=== PATIENT | female | born 1995 | race Caucasian/White ===

== ENCOUNTER 2017-06-22 10:40 | Outpatient (CLI) | payer MEDICAID, SELFPAY ==
[2017-06-22 11:00] VITALS: BMI 32.1
[2017-06-22] MEDS: Lactated Ringers 1,000 ML 1000 ML IV (11:37)
--- NOTE | 2017-06-22 16:09 | OB.TRI.NOTE ---
History of Present Illness Reason For Visit: ABD PAIN Date of Service: 06/22/17 Gestational age: 35.5 History of Present Illness: 22yo @ 35.5 wks, Viral gastroenteritis , not in labor 1) IVF- patient reports improvement after 2) Dc home Home Medications Medication Instructions Recorded Ferrous Sulfate 325 mg PO DAILY@0800 11/09/16 One Daily Tablet 1 tab PO DAILY 01/10/17 Allergies No Known Allergies Allergy (Verified 01/10/17 21:51) NST - FHR Rate Baby A Baseline: 135 Variability:: Moderate Accelerations:: 15 x 15 Decelerations:: None NST Reactive:: Yes FHR Category:: Category I Uterine Activity:: irregular
== END 2017-06-22 13:15 | disposition home or self-care (01) ==
LOC: WPOUT 10:48 → WP 10:49
PROVIDERS: Visit Provider Obstetrics & Gynecology
DX: O26.893 Other specified pregnancy related conditions, third trimester (principal); A08.4 Viral intestinal infection, unspecified; Z3A.35 35 weeks gestation of pregnancy
CPT/HCPCS: 96361; 96374; 59025; 59050; 99218; J7120; G0378

== ENCOUNTER 2017-06-23 03:38 | Outpatient (CLI) | payer MEDICAID, SELFPAY ==
[2017-06-23 04:09] VITALS: BMI 32.4
[2017-06-23 05:14] LABS: Hematocrit 36.8 % (37-47); Hemoglobin 11.6 g/dl (12.0-15.0); Mean Corp Hgb Conc 31.5 g/gl (32-36); Mean Corpuscular Hgb 24.7 pg (27.0-32.0); Mean Corpuscular Volume 78.5 fL (81-99); Mean Platelet Vol. 9.2 fl (6.2-12.0); Platelet Count 265 K/mm3 (150-450); RBC Distribution Width CV 16.2 % (11.6-14.6); RBC Distribution Width SD 44.9 fl (35.1-43.9); Red Blood Count 4.69 M/mm3 (4.2-5.4); White Blood Count 12.5 K/mm3 (4.4-11.0)
[2017-06-23 05:16] LABS: Scan Indicated on CBC? Y/N NO
[2017-06-23 05:23] LABS: Partial Thromboplast Time 29.9 Seconds (24.1-36.2); Prothrombin Time (Protime)PT. 12.9 SECONDS (11.7-14.9)
[2017-06-23 05:29] LABS: AST(SGOT) 25 U/L (15-37); Alanine Aminotransfer ALT/SGPT 18 U/L (13-56); EST Glomerular Filtration Rate 214 mL/min (>60); Est Glom Filt Rate - Afr Amer 259 mL/min (>60); Estimated Creatinine Clearance 193.73 ml/min
[2017-06-23 06:07] LABS: Amylase 46 U/L (25-115); Anion Gap 10 (5-15); BUN 6 mg/dL (7-18); BUN/Creat Ratio 15.7 RATIO (10-20); Calcium,Total 7.9 mg/dL (8.5-10.1); Chloride 110 mmol/L (98-107); Creatinine, Serum 0.38 mg/dL (0.55-1.02); EST Glomerular Filtration Rate 228 mL/min (>60); Est Glom Filt Rate - Afr Amer 275 mL/min (>60); Estimated Creatinine Clearance 203.93 ml/min; Glucose 89 mg/dL (70-110); Lipase 90 U/L (73-393); Potassium 4.4 mmol/L (3.5-5.1); Sodium Level 139 mmol/L (136-145)
[2017-06-23 06:14] LABS: Protein, Urine (Random) 45.7 mg/dL (<11.9); Protein:Creat Ratio 232 mg/g CRE (0-200)
--- NOTE | 2017-06-23 07:29 | OB.TRI.NOTE ---
History of Present Illness Reason For Visit: R/O LABOR, vomiting Date of Service: 06/23/17 Gestational age: 35.6 Home Medications Medication Instructions Recorded Ferrous Sulfate 325 mg PO DAILY@0800 11/09/16 One Daily Tablet 1 tab PO DAILY 01/10/17 Allergies No Known Allergies Allergy (Verified 01/10/17 21:51) NST - FHR Rate Baby A Baseline: 150 Variability:: Moderate Accelerations:: 15 x 15 Decelerations:: None NST Reactive:: Yes FHR Category:: Category I Uterine Activity:: no ctx Impression/Plan [id number] @ 35.6 wks, vomiting, not in labor 1) Gastroenteritis likely- no signs of labor 2) Labs collected reviewed- nothing of concern at this time 3) dc home
== END 2017-06-23 06:45 | disposition home or self-care (01) ==
LOC: WPOUT 03:53 → WP 03:54
PROVIDERS: Visit Provider Obstetrics & Gynecology
DX: O21.9 Vomiting of pregnancy, unspecified (principal); Z3A.35 35 weeks gestation of pregnancy
CPT/HCPCS: 59025; 59050; 80048; 82150; 82565; 82570; 83690; 84156; 84450; 84460; 84550; 85027; 85610; 85730; 99218; A4216; G0378

== ENCOUNTER 2017-07-02 12:37 | Inpatient (IN) | payer MEDICAID, SELFPAY ==
[2017-07-02 08:35] LABS: Hematocrit 34.8 % (37-47); Hemoglobin 10.7 g/dl (12.0-15.0); Mean Corp Hgb Conc 30.7 g/gl (32-36); Mean Corpuscular Volume 78.2 fL (81-99); Platelet Count 204 K/mm3 (150-450); RBC Distribution Width SD 45.7 fl (35.1-43.9); Red Blood Count 4.45 M/mm3 (4.2-5.4); White Blood Count 11.1 K/mm3 (4.4-11.0)
[2017-07-02 08:36] LABS: Scan Indicated on CBC? Y/N NO
[2017-07-02 08:46] VITALS: BMI 33.3
[2017-07-02 08:49] LABS: Partial Thromboplast Time 28.3 Seconds (24.1-36.2)
[2017-07-02 08:52] LABS: AST(SGOT) 10 U/L (15-37); Alanine Aminotransfer ALT/SGPT 15 U/L (13-56); Creatinine, Serum 0.42 mg/dL (0.55-1.02); EST Glomerular Filtration Rate 206 mL/min (>60); Est Glom Filt Rate - Afr Amer 249 mL/min (>60); Uric Acid 3.4 mg/dL (2.6-6.0)
[2017-07-02 09:05] LABS: Protein, Urine (Random) 18.8 mg/dL (<11.9); Protein:Creat Ratio 208 mg/g CRE (0-200)
[2017-07-02] MEDS: Acetaminophen/Butalbital/Caffe 1 Tablet PO (09:52)
--- NOTE | 2017-07-02 12:37 | PCM.HP.OB ---
History Date of Admission: 07/02/17 Gestational age: 37.1 History of this : see [facility] episode prenatals reviewed Pertinent Past Medical History: D&C Anxiety Allergies No Known Allergies Allergy (Verified 01/10/17 21:51) Smoking Status: Never smoker Alcohol: None Drug Use: none Number of Fetus(es): 1 Physical Exam General: Alert, Oriented x3 Abdomen: Soft, Non Tender, Non-Distended Presentation: Cephalic Cervix Dilation (cm): 3 Station: -3 Effacement (%): 75 Assessment/Plan 22yo female @37&1 with headache & elevated BP Admit to L&D Elevated BP - patient with elevated BP & persistent headache, will proceed with induction of labor for gestational hypertension & possible preeclampsia - no magnesium at this time Routine care Obtain GBS results EFW less than 4500g
[2017-07-02] MEDS: Oxytocin 30 units/NS 500 ml 30 UNITS/500 ML IV.SOLN IV (17:59)
[2017-07-02] MEDS: Lactated Ringers 1,000 ML 50 ML IV (18:00)
[2017-07-02 18:12] LABS: Group B Strep DNA By PCR Negative (Negative); Internal Control PASS; Probe Check PASS; Specimen Processing Control PASS
--- NOTE | 2017-07-02 18:34 | PCM.PN.BLA ---
Progress Note S: Patient comfortable with ctxs O: cvx 3/80/-2 AROM clear amniotic fluid fhts 140 with mod variability, accels tocos Q2 min A&P: pit induction for gestational hypertension GB negative
[2017-07-02] MEDS: Oxytocin 30 units/NS 500 ml 30 UNITS/500 ML IV.SOLN 334 UNITS IV (21:57)
--- NOTE | 2017-07-02 22:22 | PCM.OB.VAG ---
Vaginal Delivery Maternal Presentation: Medically Indicated Induction Method of Induction: Pitocin, Amniotomy Medical Reason for Induction: Gestational Hypertension Amniotic Membrane Rupture Type: Artificial Amniotic Fluid Description: Clear Final YENNIFER: 07/22/17 Gestational age: 37 Weeks and 1 Days Date of Procedure: 07/02/17 Pre-Operative Diagnosis: Gestational hypertension Post-Operative Diagnosis: Gestational hypertension Surgery/ Procedure Performed: Spontaneous Vaginal Delivery Type of Anesthesia: Local with 1% lidocaine Description of Procedure: Patient anterior lip & feeling pressure. She was prepped & pushed past cervix. head delivered. Shoulders delivered easily with next maternal push. Body delivered & infant placed on maternal abdomen. 3vc clamped & cut in delayed fashion. Placenta delivered with gentle traction & good uterine tone obtained. Presentation: MYLA Placental Delivery Description: Expressed Placenta Disposition: [facility] Cord Vessel Description: 3 Vessels Estimated Blood Loss: 300ml Infant A gender: Female (1 minute): 8 (5 minute): 9 Episiotomy Description: None Laceration: 1st degree - vaginal - repaired with 3-0 vicryl Medications given after delivery: IV Pitocin Complications: None
[2017-07-02] MEDS: Oxytocin 30 units/NS 500 ml 30 UNITS/500 ML IV.SOLN 167 UNITS IV (22:27)
[2017-07-03 00:42] VITALS: BP 123/78; PULSE 103; RESP 18; TEMP 36.4; O2SAT 98
[2017-07-03] MEDS: Acetaminophen 500 MG Tablet 1000 MG PO (02:44)
[2017-07-03 02:45] VITALS: BP 123/78; PULSE 103; RESP 18; TEMP 36.4; O2SAT 98
--- NOTE | 2017-07-03 07:18 | PCM.PN.OB ---
Subjective: No complaints - Physical Exam General: Alert, Oriented x3 Abdomen: Soft, Non Tender, Non-Distended - ff mid & below umb Extremities: No Calf Tenderness Vital Signs Temp Pulse Resp BP Pulse Ox 97.5 F L 103 H 18 123/78 H 98 07/03/17 02:45 07/03/17 02:45 07/03/17 02:45 07/03/17 02:45 07/03/17 02:45 Oxygen Delivery Method Room Air Weight: 194 lb 0.108 oz Body Mass Index (BMI) 33.3 Intake and Output for Last 24 Hours 07/01/17 07/02/17 07/03/17 23:59 23:59 23:59 Intake Total 750 / 750 Output Total 700 / 700 Balance 50 / 50 Laboratory Tests Past 24 Hrs 07/02/17 07/02/17 07/02/17 08:20 08:20 08:20 WBC 11.1 H RBC 4.45 Hgb 10.7 L Hct 34.8 L MCV 78.2 L MCH 24.0 L MCHC 30.7 L RDW 16.0 H RDW Differential 45.7 H Plt Count 204 MPV 9.0 PT 13.0 INR 1.0 APTT 28.3 Creatinine 0.42 L Estim Creat Clear Calc 184.50 Est GFR (MDRD) Af Amer 249 Est GFR (MDRD) Non-Af 206 Uric Acid 3.4 AST 10 L ALT 15 U Random Total Protein Urine Creatinine Protein/Creatinin Ratio Group B Strep DNA Specimen Comment Blood Type Antibody Screen 07/02/17 07/02/17 07/02/17 08:40 12:10 17:10 WBC RBC Hgb Hct MCV MCH MCHC RDW RDW Differential Plt Count MPV PT INR APTT Creatinine Estim Creat Clear Calc Est GFR (MDRD) Af Amer Est GFR (MDRD) Non-Af Uric Acid AST ALT U Random Total Protein 18.8 H Urine Creatinine 90.50 Protein/Creatinin Ratio 208 H Group B Strep DNA Negative Specimen Comment Not Reportable Blood Type AB POSITIVE Antibody Screen NEGATIVE Assessment/Plan PPD#1 Routine care
[2017-07-03 07:56] VITALS: BP 123/78; PULSE 73; RESP 20; TEMP 36.8
[2017-07-03 11:39] VITALS: BP 132/72; PULSE 81; RESP 16; TEMP 36.6; O2SAT 97
[2017-07-03 15:32] VITALS: BP 129/76; PULSE 93; RESP 16; TEMP 36.1; O2SAT 99
[2017-07-03 19:40] VITALS: BP 128/72; PULSE 93; RESP 16; TEMP 36.3; O2SAT 96
[2017-07-04 01:00] VITALS: BP 109/69; PULSE 77; RESP 18; TEMP 36.2
--- NOTE | 2017-07-04 04:57 | DCINST_ITS ---
Discharge Diet: No Restrictions Discharge Activity: Return to Normal Activity, May not drive while taking narcotic pain medications., May Shower May resume sexual activity in: 4-6 weeks Additional Activity Instructions:: Nothing in the vagina for 4-6 weeks. You may return to work/school in 6 weeks. Call your doctor if your incision/area has: Continuous Slow Oozing, Sudden Increased Bleeding, Increased Pain/ Swelling, Increased Redness, Foul Smelling Discharge Call your doctor if you observe: Fever of 101 or Higher, Inability to urinate, Inability to have a bowel movement, Using more than one pad per hour, Uncontrolled pain Additional Instructions: If you experience any of the following, contact your healthcare provider. * Bleeding that soaks a pad every hour for 2 hours * Fever 100.4 or higher * Unrelieved incision or abdominal pain * Swelling, redness, discharge or bleeding from your incision or episiotomy site * Your incision begins to separate * Problems urinating (including inability to urinate or burning while urinating) . * Visual changes * Severe headache * Flu-like symptoms * Pain or redness in one of both of your breasts * Pain, warmth, tenderness or swelling in your legs, especially the calf area * Frequent nausea and vomiting * Symptoms of depression or anxiety If you experience any of the following, call 911 or go to the nearest Emergency Room. * Chest pain * Problems breathing * Seizure activity * Partial or complete paralysis of a body part, slurred speech, weakness or drooping of the face, or a sudden inability to walk or hold your balance Allergies/Adverse Reactions: Allergies No Known Allergies Allergy (Verified 01/10/17 21:51) Medications to take at Discharge One Daily Tablet 1 tab PO DAILY 01/10/17 When: Call to make an appointment with your doctor in 6 weeks. If you had elevated Blood Pressure or 4th degree laceration you will need to be seen in 2 weeks. Primary Care Physician: Care Physician,No Primary [Primary Care Provider] - Proposed Discharge Date: 07/04/17
--- NOTE | 2017-07-04 07:49 | PCM.PN.BLA ---
Progress Note S: Patient sitting up in bed now, baby is fussy and showing feeding cues. Patient in process of latching baby to breast. Patient denies any complaints or concerns. Denies RICHARDSON, scotoma or dizziness. Patient reports + colostrum with hand expression. Patient reports bleeding is slowing down, denies passage of large blood clots. denies urinary issues or issues with ambulation. O: BP = 109/69, T = 97.2, HR = 77, R = 18 Nipples intact, no blisters or erythema noted Abdomen NT x 4 quadrants, FF midline 2FB below umbilicus Perineum well approximated, scant rubra lochia Negative calf tenderness to palpation, no edema in LE A: PPD #2, s/p following IOL @ 37+ weeks for GHTN, Normal PP course P: 1) Discharge patient to home pending discharge 2) RTC in 6 weeks to [facility] for Visit with Provider Jaimie Hung CNM
[2017-07-04 08:45] VITALS: BP 118/73; PULSE 80; RESP 16; TEMP 36.3
[2017-07-04] MEDS: Senna/Docusate Sodium 1 Tablet PO (10:41)
== END 2017-07-04 11:25 | disposition home or self-care (01) | DRG 372 ==
LOC: WPOUT 16:17
PROVIDERS: Admitting Provider Obstetrics & Gynecology; Visit Provider Obstetrics & Gynecology
DX: O13.4 Gestational [pregnancy-induced] hypertension without significant proteinuria, complicating childbirth (principal); O70.0 First degree perineal laceration during delivery; Z37.0 Single live birth; Z3A.37 37 weeks gestation of pregnancy
CPT/HCPCS: 59050; 82565; 82570; 84156; 84450; 84460; 84550; 85027; 85610; 85730; 86850; 86900; 87653; 99218; J7120; A4216; G0378

== ENCOUNTER 2018-03-03 09:43 | Emergency (ER) | payer MEDICAID, SELFPAY ==
[2018-03-03 09:45] VITALS: BP 141/77; PULSE 94; RESP 18; TEMP 36.6; O2SAT 98; BMI 30.2
--- NOTE | 2018-03-03 10:55 | ED.DCSUM_ITS ---
- ER Visit Summary Date of Service: 03/03/18 Chief Complaint: Lump on the back of my scalp History of Present Illness: The patient is a 22 F when she was washing her hair yesterday she noticed a lump on the back of her scalp. Mildly tender. She said she normally does not wash her own hair. States that it is tender to the touch. No drainage. No bleeding. No trauma. Otherwise she has not been ill. Physical Examination: Very well appearing young female. Vital signs are stable afebrile. She does not look septic toxic in any distress. Vital signs are stable afebrile. H EENT exam pupils round reactive light. Normal speech. No facial droop. Extraocular motions intact. Her scalp was unremarkable except for the left lower posterior scalp there is an area about the size of a dime that is tender. This is either a subcutaneous cyst, abscess, lipoma or lymph node more than likely. There is no fluctuance. There is no redness. There is no discharge. Neck nontender no lymphadenopathy. Lungs clear to auscultation. Heart regular rhythm no murmur. Abdomen soft nontender. Moving all 4 extremities. Neurologically she is awake and alert with no focal motor deficits. Neurologic exam is normal. Test Results: None Emergency Department Course and Treatment: I discussed with the patient the options. She will be started on Keflex for 1 week. If this is an abscess or an infected lymph node it may resolve the problem. There is really nothing to drain at this time and is firm there is no fluctuance or obvious fluid. If this is not improving she will follow-up with her primary care physician I have it potentially resected. Treatment Plan: Keflex 4 times daily. Follow-up if not improving. Disposition: Discharge Impression: Acute left posterior scalp cyst or abscess This note was generated with [employer] dictation software. It may contain incorrect words, spelling, and punctuation that were not noted in review of the chart prior to signing ED Disposition - Plan for ED Patient: Chief Complaint: Abscess Referrals: Care Physician,No Primary [Primary Care Provider] -
--- NOTE | 2018-03-03 10:56 | ED.DEP ---
ED Disposition - Plan for ED Patient: Disposition: Home or Assisted Living Chief Complaint: Abscess Instructions: ED Staph Infec Abx Tx Only Prescriptions: Cephalexin [Keflex] 500 mg PO Q6 #30 cap Referrals: Mu Bowden MD [STAFF PHYSICIAN] - Additional Instructions: The lump on the back of her scalp may be a cyst, abscess, lipoma or infected lymph node. We will start you on antibiotics and see if it resolves. At this time there is nothing to drain. If this does not improve you will need referral to a general surgeon to have it either drained or opened up and resected.
[2018-03-03 11:13] VITALS: PULSE 97; RESP 14; O2SAT 98
== END 2018-03-03 11:14 | disposition home or self-care (01) ==
PROVIDERS: Emergency Provider Emergency Medicine
DX: L02.811 Cutaneous abscess of head [any part, except face] (principal)
CPT/HCPCS: 99282

== ENCOUNTER 2018-03-10 21:21 | Emergency (ER) | payer MEDICAID, SELFPAY ==
[2018-03-10 21:21] VITALS: BP 146/85; PULSE 94; RESP 18; TEMP 36.9; O2SAT 98; BMI 27.9
[2018-03-10 21:49] LABS: Bacteria 0 SEEN /hpf (None Seen); Mucous, Urine 0 SEEN /hpf (<or=2+)
[2018-03-10 21:50] LABS: Color, Urine Yellow (Yellow); Glucose, Dipstick Normal (Normal); Ketone-Dipstick Negative (Negative); Leukocyte Esterase-Dipstick 25 /ul (Negative); Nitrite-Dipstick Negative (Negative); Occult Blood-Urine 10 /ul (Negative); Protein-Dipstick 15 mg/dl (Negative); Urine Bilirubin Dipstick Negative (Negative); Urine Clarity Clear (Clear); Urine Urobilinogen Normal (Normal)
[2018-03-10 21:58] LABS: Internal QC Validated? YES +Cl - CLEAR BKGD; Pregnancy, Urine Negative Negative; Red Blood Cells-Urine 0-5 SEEN /hpf (0-5); Squamous Epithelial Cells - UA 0-5 SEEN /hpf (5-10); White Blood Cells 0-5 SEEN /hpf (0-5)
[2018-03-10] MEDS: Ondansetron ODT 4 MG Tablet PO (22:00)
[2018-03-10 22:05] VITALS: BP 118/77; PULSE 93; RESP 16; O2SAT 96
--- NOTE | 2018-03-10 22:09 | ED.DCSUM_ITS ---
- ER Visit Summary Date of Service: 03/10/18 Chief Complaint: Abdominal pain History of Present Illness: The patient is a 22 F with no primary care physician. [facility] She reports a 5:00 this evening she had the onset of suprapubic pain that radiates up toward her umbilicus. Gradual ly gotten worse. It is a burning, sharp pain that is 10 out of 10 at worst and 5-10 currently. Is worsened by movement and walking. Is relieved by nothing. However, she is not taking anything for pain. She has had nausea without vomiting. No diarrhea. Last bowel was today. She has had no melena or hematochezia. No dysuria or frequency. She is on control reports her last Depo shot was October 06. She has not had a period for approximately 1 year. Physical Examination: Vitals: Stable. Afebrile. General: Well-nourished and well-developed. Head: Normocephalic atraumatic. Neck: Supple, no lymphadenopathy. No JVD. Nontender. Cardiovascular: Regular rate and rhythm. No murmurs. Respiratory: No respiratory distress. Clear to auscultation bilaterally. Abdominal: Soft, mild suprapubic tenderness palpation, nondistended, normal bowel sounds. No guarding, rebound, or peritoneal signs. Back: Nontender. Extremities: Nontender, no edema. Skin: Normal color, no rash. Neurologic: Alert and oriented ?3. Cranial nerves II through XII are intact. Normal strength and sensation. Psych: Normal affect. Test Results: UA and test were negative. Emergency Department Course and Treatment: Patient was treated with Zofran. She refused pain medications. Treatment Plan: Patient be discharged instructions follow-up the [facility] in 1-2 days if not improving. Return to the emergency department for any worsening symptoms. Disposition: To home in improved and stable condition. Impression: 1. Abdominal pain, uncertain cause. This note was generated with [employer] dictation software. It may contain incorrect words, spelling, and punctuation that were not noted in review of the chart prior to signing ED Disposition - Plan for ED Patient: Disposition: Home or Assisted Living Chief Complaint: Abd Pain Instructions: ED Abdominal Pain Unkn Cause Prescriptions: Ondansetron [Zofran Odt] 4 mg PO Q8H PRN PRN #10 tablet PRN Reason: Nausea Referrals: Iris Sykes [NON-STAFF] - 1-2 Days if not improving
== END 2018-03-10 22:44 | disposition home or self-care (01) ==
LOC: ED 21:59
PROVIDERS: Emergency Provider Emergency Medicine
DX: R10.30 Lower abdominal pain, unspecified (principal); R11.0 Nausea
CPT/HCPCS: 81001; 81025; 99283

== ENCOUNTER 2018-03-13 06:21 | Emergency (ER) | payer MEDICAID, SELFPAY ==
[2018-03-13 06:21] VITALS: BP 142/100; PULSE 77; RESP 18; TEMP 36.7; O2SAT 99; BMI 27.9
--- NOTE | 2018-03-13 06:41 | CT_ITS ---
STUDY: CT ABDOMEN AND PELVIS WITH CONTRAST REASON FOR EXAM: Female, 22 years old. Lower abdominal pain and cramping for 4 days. RADIATION DOSAGE (If Supplied By Facility): CTDIvol = ( 18.31 ) mGy, DLP = ( 1100.53 ) mGycm TECHNIQUE: Transaxial images were obtained from the dome of the diaphragm to the symphysis pubis with oral contrast. 100mL ml of Isovue 300 contrast was administered. Sagittal and coronal images were reconstructed. # Of Images Including Paperwork: 421 Individualized dose optimization techniques were used for this CT. COMPARISON: None. FINDINGS: The visualized lung bases are unremarkable. The visualized portions of the heart are within normal limits. Normal liver. Normal gallbladder and extrahepatic biliary system. There is mild splenomegaly without mass. Normal pancreas. Normal bilateral adrenal glands. Normal right kidney. Normal left kidney. Normal visualized bilateral ureters Normal visualized stomach. Normal small intestine. There is feces throughout nondistended colon. There is no mass or obstruction. The appendix is visualized and appears normal. Normal abdominal aorta. Normal inferior vena cava. Normal retroperitoneum. Normal urinary bladder. Normal uterus and ovaries. There is no pelvic lymphadenopathy. No free air or free fluid is seen within the peritoneal cavity. Normal abdominal wall. Normal osseous structures. CT/Abdomen/Pelvis WITH Contrast IMPRESSION: 1. Mild splenomegaly. 2. Diffuse colonic feces. Question mild constipation. 3. No other evidence of abdominal or pelvic abnormality. Electronically Signed: Bruno Henderson DO at 8:47 EDT Tel [phone], Service support ,
--- NOTE | 2018-03-13 06:41 | ED.DCSUM_ITS ---
- ER Visit Summary Date of Service: 03/13/18 Chief Complaint: Abdominal pain History of Present Illness: The patient is a 22 F who states that on Thursday evening she began to have abdominal pain. She describes the suprapubic and a dull constant sensation that occasionally becomes very severe and radiates into her back much like a contraction. She denies any urinary symptoms. Normal bowel habits. No fevers. She is seen in the emergency department on 03/10 and had a negative urinalysis. She was unable to secure follow-up and states the pain woke her up this morning. Physical Examination: Afebrile vital signs are stable Gen: Well-nourished well-developed Head: Normocephalic atraumatic Eyes: Perrl EOMI ENT: TMs clear no rhinorrhea moist mucous membranes Neck: Supple no lymphadenopathy no JVD nontender CVS: Regular rate rhythm no murmurs normal S1-S2 Respiratory: No distress clear to auscultation bilaterally chest nontender Abdomen: Soft tender to palpation in the upper quadrants and the epigastrium without guarding or rebound nondistended normal bowel sounds no masses Back: Nontender Extremity: Nontender no edema Skin: Normal color no rash Neuro: alert orientated ?3 CN II-XII intact normal strength sensation reflexes gait cerebellar Psych: Normal affect normal mood Emergency Department Course and Treatment: Labs and CT were ordered. Patient received pain and nausea medication. Care of the patient will be checked out to the daytime physician for check of testing and proper disposition. Impression: 1. Abdominal pain This note was generated with [employer] dictation software. It may contain incorrect words, spelling, and punctuation that were not noted in review of the chart prior to signing ED Disposition - Plan for ED Patient: Chief Complaint: Abd Pain Referrals: Care Physician,No Primary [Primary Care Provider] -
[2018-03-13] MEDS: Ketorolac 30 MG/ML Syringe IV (07:14)
[2018-03-13] MEDS: 0.9% Normal Saline 1,000 ML 125 ML IV (07:14)
[2018-03-13] MEDS: Ondansetron 4 MG/2 ML Vial IV (07:14)
[2018-03-13 07:26] LABS: Bacteria 0 SEEN /hpf (None Seen); Mucous, Urine 0 SEEN /hpf (<or=2+); Red Blood Cells-Urine 0 SEEN /hpf (0-5); White Blood Cells 0 SEEN /hpf (0-5)
[2018-03-13 07:37] LABS: Absolute Neutrophil Count 4.7 X10^3/uL (2.0-7.7); Basophil# 0.05 X10^3/uL; Basophil% 0.6 % (0-1); Eosinophils% 3.5 % (0-5); Hematocrit 43.6 % (37-47); Hemoglobin 14.2 g/dl (12.0-15.0); Lymphocyte % 32.6 % (19-41); Mean Corp Hgb Conc 32.6 g/gl (32-36); Mean Corpuscular Hgb 26.6 pg (27.0-32.0); Mean Corpuscular Volume 81.8 fL (81-99); Mean Platelet Vol. 9.6 fl (6.2-12.0); Monocyte# 0.75 X10^3/uL; Monocyte% 8.7 % (0-10); Neutrophil # 4.68 X10^3/uL (2.7-7.7); Neutrophil % 54.4 % (47-70); POSITIVE COUNT NO; POSITIVE DIFFERENTIAL NO; POSITIVE MORPHOLOGY NO; Platelet Count 344 K/mm3 (150-450); RBC Distribution Width CV 14.1 % (11.6-14.6); RBC Distribution Width SD 42.1 fl (35.1-43.9); Red Blood Count 5.33 M/mm3 (4.2-5.4); White Blood Count 8.6 K/mm3 (4.4-11.0)
[2018-03-13 07:40] LABS: Color, Urine Yellow (Yellow); Glucose, Dipstick Normal (Normal); Ketone-Dipstick Negative (Negative); Leukocyte Esterase-Dipstick 25 /ul (Negative); Nitrite-Dipstick Negative (Negative); Occult Blood-Urine Negative /ul (Negative); Protein-Dipstick Negative (Negative); Specific Gravity, Urine 1.015 (1.002-1.030); Urine Bilirubin Dipstick Negative (Negative); Urine Clarity Clear (Clear); Urine Urobilinogen Normal (Normal); Urine pH 6.5 (5.0 - 8.0)
[2018-03-13 07:44] LABS: ALB/GLOB Ratio 0.9 RATIO (0.9-2.4); AST(SGOT) 13 U/L (15-37); Alanine Aminotransfer ALT/SGPT 24 U/L (13-56); Albumin, Serum 3.6 g/dL (3.2-5.0); Alkaline Phosphatase 89 U/L (45-117); Anion Gap 5 (5-15); BUN 17 mg/dL (7-18); BUN/Creat Ratio 22.7 RATIO (10-20); Calcium,Total 8.3 mg/dL (8.5-10.1); Chloride 107 mmol/L (98-107); Creatinine, Serum 0.75 mg/dL (0.55-1.02); EST Glomerular Filtration Rate 104 mL/min (>60); Est Glom Filt Rate - Afr Amer 126 mL/min (>60); Estimated Creatinine Clearance 103.32 ml/min; Glucose 93 mg/dL (74-106); Lipase 93 U/L (73-393); Potassium 3.9 mmol/L (3.5-5.1); Protein, Total 7.6 g/dL (6.4-8.2); Sodium Level 140 mmol/L (136-145)
[2018-03-13 07:54] LABS: Squamous Epithelial Cells - UA 0-5 SEEN /hpf (5-10)
[2018-03-13 08:07] LABS: Pregnancy, Serum, hCG Quali. NEGATIVE Negative (0-9 Nonpreg)
--- NOTE | 2018-03-13 09:09 | ED.DEP ---
ED Disposition - Plan for ED Patient: Disposition: Home or Assisted Living Chief Complaint: Abd Pain Instructions: ED Constipation Prescriptions: Polyethylene Glycol 3350 [Miralax] 17 gm PO DAILY #30 packet Referrals: Bhupendra Melgoza MD [STAFF PHYSICIAN] - As Needed
[2018-03-13 09:28] VITALS: BP 103/64; PULSE 62; O2SAT 99
== END 2018-03-13 09:28 | disposition home or self-care (01) ==
PROVIDERS: Emergency Provider Emergency Medicine
DX: R10.9 Unspecified abdominal pain (principal)
CPT/HCPCS: 74177; 80053; 81001; 83690; 84703; 85025; 99283; J7030; Q9967; J2405

== ENCOUNTER 2018-10-11 14:37 | Emergency (ER) | payer MEDICAID, SELFPAY ==
[2018-10-11 14:37] VITALS: BMI 33.3
[2018-10-11 14:38] VITALS: BP 149/88; PULSE 93; RESP 16; TEMP 36.3; O2SAT 97; BMI 31.1
--- NOTE | 2018-10-11 15:18 | ED.VISSUMM ---
- ER Visit Summary Date of Service: 10/11/18 Chief Complaint: Sunburn History of Present Illness: The patient is a 23 F no significant past medical or surgical history other than a prior D&C. Patient states she was laying out yesterday fell asleep and got sunburn. Physical Examination: Young female no acute distress. Vital signs are stable afebrile. HEENT exam unremarkable. Neck nontender. Lungs clear to auscultation bilaterally. Heart regular rhythm no murmur. Abdomen soft nontender. Extremities moves all 4. Neurovascular intact. Calves nontender. Neurologically she is awake alert no focal motor deficit. Skin her chest neck and upper back has primarily first-degree sunburn there is some blistering for early second-degree. There is no secondary infection. Currently there is no significant sloughing of skin. She has pants on but says is also on her legs. Test Results: None Emergency Department Course and Treatment: Anti-inflammatory for pain she is already on meloxicam. Aloe vera lotion. Cool compresses. Treatment Plan: See above Disposition: discharge Impression: First and second-degree sunburn This note was generated with [employer] dictation software. It may contain incorrect words, spelling, and punctuation that were not noted in review of the chart prior to signing ED Disposition - Plan for ED Patient: Referrals: [facility]ar Doctor,Out of [Primary Care Provider] -
--- NOTE | 2018-10-11 15:20 | ED.DEP ---
ED Disposition - Plan for ED Patient: Disposition: Home or Assisted Living Instructions: Sunburn (Sun Poisoning) Referrals: [facility] Doctor,Out of [NON-STAFF] - As Needed Additional Instructions: Meloxicam or Motrin for pain. Alovera lotion. Cool compresses.
== END 2018-10-11 15:32 | disposition home or self-care (01) ==
PROVIDERS: Emergency Provider Emergency Medicine; Family Provider Nurse Practitioner; PCP Nurse Practitioner
DX: L55.1 Sunburn of second degree (principal); Z72.0 Tobacco use
CPT/HCPCS: 99282

== ENCOUNTER 2018-12-21 21:51 | Emergency (ER) | payer MEDICAID, SELFPAY ==
[2018-12-21 21:53] VITALS: BP 122/75; PULSE 88; RESP 16; TEMP 36.6; O2SAT 98; BMI 31.3
--- NOTE | 2018-12-21 22:29 | ED.DCSUM_ITS ---
- ER Visit Summary Date of Service: 12/21/18 Chief Complaint: Requesting test History of Present Illness: The patient is a 23 F who presented to the emergency department requesting a test. She had nausea today. She denies any pelvic pain or vaginal bleeding. Her last menstrual period was November 21. She otherwise has no complaints. Physical Examination: Afebrile vitals normal No distress resting comfortably Moist mucous membranes Heart regular rate and rhythm Lungs clear Abdomen soft and nontender Test Results: Not indicated Emergency Department Course and Treatment: Patient has no pelvic pain no vaginal bleeding. She is simply requesting a test due to nausea. I advised her that she can buy an [id number] test but there is not any dictation for diagnostic testing at this time in the emergency department and she was discharged home. Treatment Plan: [] Disposition: Discharge Impression: Medical screening exam This note was generated with [employer] dictation software. It may contain incorrect words, spelling, and punctuation that were not noted in review of the chart prior to signing ED Disposition - Plan for ED Patient: Referrals: Paty Mercedes, CAFE ASSISTANT-C [Primary Care Provider] -
--- NOTE | 2018-12-21 22:30 | DCINST.ED_ITS ---
ED Disposition - Plan for ED Patient: Instructions: MEDICAL SCREENING EXAM, NonUrgent Referrals: Paty Mercedes, EDGERMAN-C [Primary Care Provider] -
--- NOTE | 2018-12-21 22:30 | ED.DEP ---
ED Disposition - Plan for ED Patient: Instructions: MEDICAL SCREENING EXAM, NonUrgent Referrals: Paty Mercedes, OUTSIDE SALESMAN-C [Primary Care Provider] -
== END 2018-12-21 22:40 | disposition home or self-care (01) ==
LOC: ED 22:38
PROVIDERS: Emergency Provider Emergency Medicine; Family Provider Nurse Practitioner; PCP Nurse Practitioner
DX: Z32.00 Encounter for pregnancy test, result unknown (principal)
CPT/HCPCS: 99282

== ENCOUNTER 2019-01-20 22:57 | Emergency (ER) | payer MEDICAID, SELFPAY ==
[2019-01-20 22:58] VITALS: BP 135/87; PULSE 105; RESP 14; TEMP 36.3; O2SAT 97; BMI 31.7
--- NOTE | 2019-01-20 23:37 | ED.DCSUM_ITS ---
History of Present Illness Chief Complaint: Vag Bld, Preg Informant: Patient Onset: Days - 3 Narrative: 7 weeks gestation by ultrasound followed by Dr. Rascon presents for continued vaginal spotting for the past 3 days. No clots. No abdominal trauma. Patient reports he has records blood type being AB+. Saw OB office yesterday with vaginal exam, states results are pending. States January 04 had hCG quant levels was 2400, repeat 2 days later was 2500. She had initial ultrasound on the first visit noting no intrauterine gestation, however repeat ultrasound week later on the noted intrauterine with a positive heart tone. Reports on the however her quant level was 3400. Reports she is told by her INTERNATIONAL SPECIALIST that they will follow ultrasounds and ignore the numbers. She denies any urinary symptoms. She states she does have an official ultrasound to be performed tomorrow. Denies abdominal pain. Prior similar symptoms: Yes Past Medical History - Allergies and Home Meds Allergies/Adverse Reactions: Allergies No Known Allergies Allergy (Verified 01/20/19 23:02) Primary Care Physician: NOT,DEFINED [NON-STAFF] - Smoking Status: Former smoker Review of Systems All systems negative except as indicated General: Denies: Chills, Fever, Sweats Eyes: Denies: Visual changes - bilaterally, Diplopia ENT: Denies: Rhinorrhea, Sore throat Cardiovascular: Denies: Chest pain, Palpitations Respiratory: Denies: Dyspnea, Cough, Dyspnea on exertion Gastrointestinal: Denies: Abdominal pain, Nausea, Vomiting, Diarrhea, Melena, Hematochezia Genitourinary: Denies: Dysuria, Hematuria, Frequency Musculoskeletal: Denies: Back pain, Extremity Pain Skin: Denies: Rash, Wounds Neurological: Denies: Headache, Weakness, Numbness Physical Exam Vital Signs/Narrative: Vital Signs Temp Pulse Resp BP Pulse Ox 01/20/19 22:58 97.3 F L 105 H 14 135/87 H 97 Inital Vital Signs reviewed: Yes General: Well nourished, Well developed, No Acute Distress Head: Normocephalic, Atraumatic Eyes: Perrl, EOMI ENT: Moist mucous membranes, No rhinorrhea Neck: Supple, Nontender Cardiovascular: Regular rate, Regular rhythm, No murmurs Respiratory: No distress, CTA bilaterally, Chest nontender Abdomen: Soft, Nontender, Nondistended, Normal bowel sounds : - - Declined due to having one yesterday. Back: Nontender, Normal Inspection Extremities: Nontender, No edema Skin: Normal color, No rash Neurological: Alert, Oriented x3, Cranial nerves II-XII grossly intact, Normal Strength, Normal Sensation Psychological: Normal affect, Normal Mood Diagnostic/Tx/Re-eval Abnormal Lab Results 01/20/19 01/20/19 23:30 23:45 HCG, Quant 7348 H Urine Color Yellow Urine Clarity Clear Urine pH 6.0 Ur Specific [place] 1.025 Urine Protein 15 H Urine Glucose (UA) Normal Urine Ketones Negative Urine Occult Blood 25 H Urine Nitrite Negative Urine Bilirubin Negative Urine Urobilinogen 1 H Ur Leukocyte Esterase 25 H - Medical Decision Making Bedside ultrasound, is unable to visualize intrauterine gestation. hCG did return at 7348, it is still climbing from her previous. She is AB+ from documentation from her results from her phone. Urine did note signs of infection, culture sent started on Macrobid. She has an official ultrasound tomorrow, I did not feel emergent need of obtaining one today. She has no clots. I discussed threatened miscarriage. Patient will follow-up with her OB. All questions were answered. ED Disposition - Plan for ED Patient: Disposition: Home or Assisted Living Diagnosis: Threatened miscarriage in early Instructions: POSSIBLE MISCARRIAGE (Threatened ) Prescriptions: Nitrofurantoin Macrocrystals [Macrobid] 100 mg PO Q12 #10 capsule Referrals: NOT,DEFINED [NON-STAFF] - Additional Instructions: hCG 7348. Take antibiotic as prescribed for urinary tract infection in . Continue with your formal ultrasound tomorrow. Follow-up with Dr. Rascon.
[2019-01-20 23:57] LABS: Glucose, Dipstick Normal (Normal); Ketone-Dipstick Negative (Negative); Leukocyte Esterase-Dipstick 25 /ul (Negative); Nitrite-Dipstick Negative (Negative); Occult Blood-Urine 25 /ul (Negative); Protein-Dipstick 15 mg/dl (Negative); Specific Gravity, Urine 1.025 (1.002-1.030); Urine Bilirubin Dipstick Negative (Negative); Urine Urobilinogen 1 mg/dl (Normal)
[2019-01-20 23:58] LABS: Color, Urine Yellow (Yellow); Urine Clarity Clear (Clear)
[2019-01-21 00:32] LABS: hCG Titer Quant., Serum 7348 mIU/mL (1-3)
[2019-01-21] MEDS: Nitrofurantoin Macrocrystals 100 MG Capsule PO (00:51)
[2019-01-21 00:54] VITALS: BP 112/78; PULSE 78; RESP 16; O2SAT 99
== END 2019-01-21 00:55 | disposition home or self-care (01) ==
PROVIDERS: Emergency Provider Emergency Medicine; Family Provider Nurse Practitioner; PCP Nurse Practitioner
DX: O20.0 Threatened abortion (principal); Z3A.01 Less than 8 weeks gestation of pregnancy; Z87.891 Personal history of nicotine dependence
CPT/HCPCS: 81002; 84702; 87086; 87088; 99283

== ENCOUNTER 2019-01-28 09:41 | Day surgery (SDC) | payer MEDICAID, SELFPAY ==
[2019-01-28 09:55] VITALS: BP 133/90; PULSE 92; RESP 16; TEMP 37.6; O2SAT 100; BMI 31.3
[2019-01-28] MEDS: Doxycycline 100 MG CAPSULE PO (10:17)
[2019-01-28] MEDS: Lactated Ringers 1,000 ML 100 ML IV ×2 (10:19→13:20)
[2019-01-28 10:36] LABS: Hematocrit 41.1 % (37-47); Hemoglobin 13.4 g/dL (12.0-15.0); Mean Corp Hgb Conc 32.6 g/dL (32-36); Mean Corpuscular Hgb 27.7 pg (27.0-32.0); Mean Corpuscular Volume 84.9 fL (81-99); Mean Platelet Vol. 9.2 fl (6.2-12.0); Platelet Count 313 K/mm3 (150-450); RBC Distribution Width SD 39.8 fl (35.1-43.9); Red Blood Count 4.84 M/mm3 (4.2-5.4); White Blood Count 9.3 K/mm3 (4.4-11.0)
--- NOTE | 2019-01-28 12:00 | POC_PTH ---
PATIENT: LAURIE CHRISTIE LOC: [facility] [place] U#:[id number] AGE/SX: 23/F ROOM: RE01/28/[address]: Dr. Lianet Jacobo MD : [id number] BED: DIS: 01/28/2019 SPEC #: [id number] RECD: 01/28/19 13:42 STATUS: AL MAY #: [id number] HANH: 01/28/19 12:[address]: Lianet Jacobo DEPT: SURGICAL PATHOLOGY RECD BY: Maxim Bhandari ENTERED: 01/28/19 13:57 SP TYPE: PROD CONC OTHR DR: Paty Velazquez, FLASH DEVELOPER-C Tissues: Product of conception, NOS Procedures: Surgery Specimen Level IV HEADER OPERATION: Dilation and curettage, suction PRE-OP DIAGNOSIS: Missed TISSUE SUBMITTED: Products of conception MICROSCOPIC DIAGNOSIS Products of conception: [place], gestational endometrium and immature chorionic villi (products of conception). See comment. SINDI:louie 01/31/19 COMMENT The results of cytogenetic study will be reported later as an addendum. MICROSCOPIC DESCRIPTION Slides are reviewed. GROSS DESCRIPTION Received fresh labeled with the patient's name and designated products of conception. The specimen consists of multiple irregular fragments of kruger-pink soft tissue that in aggregate measure 4 x 3 x 0.3 cm. A piece is saved for cytogenetic studies (Anora). The entire specimen is submitted in two cassettes. / SINDI:louie 01/28/19 TC:5 CPT: 48600 ADDENDUM ADDENDUM ADDENDUM ADDENDUM ADDENDUM ADDENDUM ADDENDUM ADDENDUM ADDENDUM 02/07/2019 10:47 ADDENDUM 02/07/2019 10:47 ADDENDUM 02/07/2019 10:47 ADDENDUM 02/07/2019 10:47 ADDENDUM 02/07/2019 10:47 ANORA MICROARRAY CHROMOSOME ANALYSIS WITH PARENTAL SUPPORT RESULT: Maternal cell contamination MICROARRAY RESULT: n/a CLINICAL INTERPRETATION: Maternal cell contamination was detected. Insufficient DNA detected for analysis. Please see complete above mentioned report in EMR
--- NOTE | 2019-01-28 12:33 | DCINST_ITS ---
Discharge Diet: No Restrictions Discharge Activity: Return to Normal Activity - after 24 hours, May Shower May resume sexual activity in: 2 weeks Weight Bearing Status: Weight bearing as tolerated Call your doctor if you observe: Fever of 101 or Higher, Coldness, Increased Pain, Numbness or Tingling, Change in Color, Inability to urinate, Inability to have a bowel movement, Using more than one pad per hour, Shortness of breath, Fainting spells, Chest pain, Increased palpitations (irregular heartbeat), Uncontrolled pain Allergies/Adverse Reactions: Allergies No Known Allergies Allergy (Verified 01/27/19 13:52) Medications to take at Discharge NK 01/27/19 Primary Care Physician: Paty Mercedes NP-C [Primary Care Provider] - Test Results: Test results from this visit will be discussed in further detail at your follow- up appointment, if applicable.
--- NOTE | 2019-01-28 12:35 | PCM.OPRPT ---
Report of Operation Date of Procedure: 01/28/19 Pre-Operative Diagnosis: Missed AB at 7 weeks Post-Operative Diagnosis: Same Surgery/Procedure Performed:: Suction dilation and curettage Description of Surgical Findings:: Uterus c/w 7-8 weeks Specimen's removed: Products of conception Estimated Blood Loss (mL): 50ml Fluids Replaced: 1,000ml Description of Procedure: Patient take to NH where MAC anesthesia was placed and confirmed adequate. She was placed in dorsal lithotomy position, prepped & draped. Cervis grasped with a tenaculum and cervix gently dilated. #8 suction curette gently introduced for return of some POC's. Careful sharp curettage performed. Suction curettage repeated. 1 additional pass of sharp curettage performed. Transabdominal ultrasound performed. - Complications None - Admit VTE Documentation VTE Present on Admission: No
[2019-01-28] MEDS: Lubricating Jelly 60 GM Tube 30 GM TOPICAL (12:50)
[2019-01-28 13:20] VITALS: BP 107/64; BP 133/90; PULSE 89; RESP 16; TEMP 36.2; O2SAT 100
[2019-01-28 13:25] VITALS: BP 109/63; BP 133/90; PULSE 86; RESP 16; O2SAT 100
[2019-01-28 13:30] VITALS: BP 133/90; BP 97/82; PULSE 77; RESP 16; O2SAT 100
[2019-01-28 13:35] VITALS: BP 105/85; BP 133/90; PULSE 62; RESP 16; TEMP 36.3; O2SAT 100
[2019-01-28 14:15] VITALS: BP 133/90
== END 2019-01-28 14:24 | disposition home or self-care (01) ==
LOC: SDC 09:41 → AC 09:42
PROVIDERS: Family Provider Nurse Practitioner; PCP Nurse Practitioner; Referring Provider Obstetrics & Gynecology; Visit Provider Obstetrics & Gynecology
DX: O02.1 Missed abortion (principal); F17.210 Nicotine dependence, cigarettes, uncomplicated
CPT/HCPCS: 59820; 85027; 86850; 86900; 86901; 88305; J7120; J2405

== ENCOUNTER 2019-04-06 21:32 | Emergency (ER) | payer MEDICAID, SELFPAY ==
[2019-04-06 21:32] VITALS: BP 128/87; PULSE 80; RESP 18; TEMP 36.7; O2SAT 94; BMI 31.2
--- NOTE | 2019-04-06 22:38 | EKG12_ITS ---
Test Reason : Blood Pressure : / mmHG Vent. Rate : 063 BPM Atrial Rate : 063 BPM P-R Int : 154 ms QRS Dur : 072 ms QT Int : 392 ms P-R-T Axes : 011 010 007 degrees QTc Int : 401 ms Normal sinus rhythm Possible Inferior infarct , age undetermined Abnormal ECG No previous ECGs available Confirmed by CARL LESLIE ([id number]), television news video editor AILYN TAMAYO ([id number]) on 04/22/2019 11:40:48 AM Referred By: Confirmed By:CARL LSELIE
--- NOTE | 2019-04-06 22:39 | ED.VIS.GEN ---
History of Present Illness Chief Complaint: Shortness of Breath Informant: Patient Narrative: Patient states that she was standing at work for 45 minutes doing nonstrenuous activity and felt lightheaded and near syncopal. She did not pass out. She then walked to the bathroom and the symptoms resolved. Patient denies any chest pain. She stated she felt a little bit short of breath when this happened. She feels normal now. She stated sometimes she feels intermittent shortness of breath but it lasts for a few moments and goes away. She does not have any of this currently. She is 8 weeks 3 days . Last ultrasound was normal per patient at 7 weeks. She denies any vaginal bleeding abdominal cramping. This is her fifth . Patient denies any pulmonary embolism risk factors other than being . She is never had a blood clot before. She denies any chest pain. Past Medical History - Allergies and Home Meds Allergies/Adverse Reactions: Allergies No Known Allergies Allergy (Verified 04/06/19 21:34) Primary Care Physician: Paty Mercedes NP-C [Primary Care Provider] - Prior records reviewed: Yes Past Medical History: None Surgical History: dilatation and curettage, - Lives: With Family Smoking Status: Current every day smoker Alcohol: None Drugs: None Review of Systems General: Denies: Chills, Fever, Sweats Eyes: Denies: Visual changes - bilaterally, Diplopia ENT: Denies: Rhinorrhea, Sore throat Cardiovascular: Denies: Chest pain, Palpitations Respiratory: Reports: Dyspnea - Episodic lasting few moments. Denies: Cough, Dyspnea on exertion Gastrointestinal: Denies: Abdominal pain, Nausea, Vomiting, Diarrhea, Melena, Hematochezia Genitourinary: Denies: Dysuria, Hematuria, Frequency Musculoskeletal: Denies: Back pain, Extremity Pain Skin: Denies: Rash, Wounds Neurological: Denies: Headache, Weakness, Numbness Physical Exam Vital Signs/Narrative: Vital Signs Temp Pulse Resp BP Pulse Ox 04/06/19 21:32 98.0 F 80 18 128/87 H 94 General: Well nourished, Well developed, No Acute Distress Head: Normocephalic, Atraumatic Eyes: Perrl, EOMI ENT: Moist mucous membranes, No rhinorrhea Neck: Supple, Nontender Cardiovascular: Regular rate, Regular rhythm, No murmurs Respiratory: No distress, CTA bilaterally, Chest nontender Abdomen: Soft, Nontender, Nondistended, Normal bowel sounds Back: Nontender, Normal Inspection Extremities: Nontender, No edema Skin: Normal color, No rash Neurological: Alert, Oriented x3, Cranial nerves II-XII grossly intact, Normal Strength, Normal Sensation Psychological: Normal affect, Normal Mood Diagnostic/Tx/Re-eval - Medical Decision Making EKG and lab work obtained. EKG shows sinus rhythm at a rate of 63. T wave inversion inferiorly 3 only. Otherwise no arrhythmia. Lab work shows no abnormalities other than a mildly low calcium. Patient resting comfortably. I do not think she has a PE or dissection or acute coronary syndrome. I feel she can be discharged. She will be encouraged to drink plenty of fluids. ED Disposition - Plan for ED Patient: Disposition: Home or Assisted Living Diagnosis: Near syncope Instructions: NEAR SYNCOPE, Unknown Referrals: Paty Mercedes NP-C [Primary Care Provider] -
--- NOTE | 2019-04-06 22:42 | ED.RN ---
NO OLD EKG
[2019-04-06 23:00] LABS: Absolute Lymphocyte Count 2.93 X10^3/uL (0.83-4.51); Absolute Neutrophil Count 5.4 X10^3/uL (2.0-7.7); Basophil# 0.06 X10^3/uL; Basophil% 0.6 % (0-1); Eosinophil# 0.42 X10^3/uL; Eosinophils% 4.4 % (0-5); Hematocrit 41.2 % (37-47); Hemoglobin 13.2 g/dL (12.0-15.0); Lymphocyte # 2.93 X10^3/ul (4.0); Lymphocyte % 30.4 % (19-41); Mean Corpuscular Hgb 27.9 pg (27.0-32.0); Mean Corpuscular Volume 87.1 fL (81-99); Mean Platelet Vol. 9.1 fl (6.2-12.0); Monocyte# 0.78 X10^3/uL; Monocyte% 8.1 % (0-10); NRBC Flagged by Analyzer 0 % (0-5); Neutrophil # 5.36 X10^3/uL (2.7-7.7); Neutrophil % 55.5 % (47-70); Platelet Count 289 K/mm3 (150-450); RBC Distribution Width CV 13.2 % (11.6-14.6); RBC Distribution Width SD 41.3 fl (35.1-43.9); Red Blood Count 4.73 M/mm3 (4.2-5.4); White Blood Count 9.7 K/mm3 (4.4-11.0)
[2019-04-06 23:12] LABS: Anion Gap 6 (5-15); BUN 8 mg/dL (7-18); BUN/Creat Ratio 14.7 RATIO (10-20); Calcium,Total 8.4 mg/dL (8.5-10.1); Chloride 107 mmol/L (98-107); Creatinine, Serum 0.55 mg/dL (0.55-1.02); EST Glomerular Filtration Rate 148 mL/min (>60); Est Glom Filt Rate - Afr Amer 179 mL/min (>60); Estimated Creatinine Clearance 145.59 ml/min; Glucose 95 mg/dL (74-106); Potassium 3.8 mmol/L (3.5-5.1); Sodium Level 139 mmol/L (136-145)
[2019-04-06 23:22] VITALS: BP 127/80; PULSE 72; RESP 18; O2SAT 100
== END 2019-04-06 23:23 | disposition home or self-care (01) ==
PROVIDERS: Emergency Provider Emergency Medicine; Family Provider Nurse Practitioner; PCP Nurse Practitioner
DX: O26.891 Other specified pregnancy related conditions, first trimester (principal); R55 Syncope and collapse; O99.331 Smoking (tobacco) complicating pregnancy, first trimester; F17.200 Nicotine dependence, unspecified, uncomplicated; Z3A.08 8 weeks gestation of pregnancy
CPT/HCPCS: 36415; 80048; 85025; 93005; 99282

== ENCOUNTER 2019-09-06 18:55 | Outpatient (CLI) | payer MEDICAID, SELFPAY ==
[2019-09-06 19:20] VITALS: O2SAT 96
[2019-09-06 19:21] VITALS: TEMP 37.2
[2019-09-06 19:22] VITALS: BP 118/75; PULSE 108
[2019-09-06 19:28] VITALS: BMI 32.1
--- NOTE | 2019-09-07 11:59 | OB.TRI.NOTE ---
- Problem List (1) Decreased movement Status: Acute History of Present Illness Date of Service: 09/06/19 Was patient seen by the physician?: No Reason For Visit: Decreased movement Date of Service: 09/06/19 Final YENNIFER: 11/13/19 Gestational age: 30 Weeks and 3 Days History of Present Illness: presented to Labor and delivery with complaint of decreased movement. Also with complaint of nausea with vomiting and weakness. Allergies No Known Allergies Allergy (Verified 09/06/19 19:29) Physical Exam Vitals: Vital Signs Temp Pulse BP Pulse Ox 99.0 F 108 H 118/75 96 09/06/19 19:21 09/06/19 19:22 09/06/19 19:22 09/06/19 19:20 NST - FHR Rate Baby A Baseline: 150 Variability:: Moderate Accelerations:: 15 x 15 Decelerations:: None NST Reactive:: Yes Uterine Activity:: None
== END 2019-09-06 20:00 | disposition home or self-care (01) ==
LOC: WPOUT 19:01 → OBT 19:01
PROVIDERS: PCP Nurse Practitioner; Referring Provider Advanced Practice Midwife; Visit Provider Advanced Practice Midwife
DX: O36.8130 Decreased fetal movements, third trimester, not applicable or unspecified (principal); Z3A.30 30 weeks gestation of pregnancy
CPT/HCPCS: 59025; 59050; 99218; G0378

== ENCOUNTER 2019-10-23 22:05 | Outpatient (CLI) | payer MEDICAID, SELFPAY ==
[2019-10-23] VITALS (15 sets, daily range): PULSE 108–130; TEMP 36.7; O2SAT 97–100; BMI 33.5
--- NOTE | 2019-10-26 08:15 | OB.TRI.NOTE ---
- Problem List (1) Uterine contractions Status: Acute History of Present Illness Date of Service: 10/23/19 Reason For Visit: R/O Date of Service: 10/23/19 Final YENNIFER: 11/13/19 Final YENNIFER Source: LMP Gestational age: 37 Weeks and 3 Days Allergies No Known Allergies Allergy (Verified 09/06/19 19:29) Physical Exam Vitals: Vital Signs Temp Pulse Pulse Ox 98.1 F 118 H 98 10/23/19 22:18 10/23/19 23:23 10/23/19 23:23 NST - FHR Rate Baby A Baseline: 150 Variability:: Moderate Accelerations:: 15 x 15 Decelerations:: None NST Reactive:: Yes FHR Category:: Category I Uterine Activity:: Contractions every 2-4 minutes that palpate mild Impression/Plan Patient is a 24 year old at 37.3 weeks gestation that presented to triage for contractions. Patient stated she had been tima most of the day. Denies LOF, VB and stated positive movement. Category 1 tracing with irregular contractions every 2-5 minutes. CE 3/70/-2 Desires NCB A/P Monitor for 2 hours and recheck cervix for change D/C home if no changes Follow up in office
== END 2019-10-23 23:59 | disposition home or self-care (01) ==
LOC: WPOUT 22:12 → WP 22:13
PROVIDERS: PCP Nurse Practitioner; Visit Provider Advanced Practice Midwife
DX: O62.9 Abnormality of forces of labor, unspecified (principal); Z3A.37 37 weeks gestation of pregnancy
CPT/HCPCS: 59025; 59050; 99218; G0378

== ENCOUNTER 2019-10-29 00:13 | Outpatient (CLI) | payer MEDICAID, SELFPAY ==
[2019-10-23 22:20] VITALS: BMI 33.5
[2019-10-29 00:31] VITALS: BP 130/81; PULSE 93; O2SAT 98; BMI 34.0
--- NOTE | 2019-10-29 09:25 | OB.TRI.PN ---
Progress Notes Date of Service: 10/28/19 Progress Note: at 37 weeks presented for contractions. Seen in office with membranes stripping and contractions began after visit. No leakage of fluid or vaginal bleeding. Good movement. O: FHR: 155, moderate, accels, reactive TOCO: Irregular, mild to palpation per nursing CE: 5cm per nursing with no change upon reexamination A:False Labor P: 1) Discharge home for false labor or possibly early labor. Instructions given by nursing when to return with regular contractions
== END 2019-10-29 03:06 | disposition home or self-care (01) ==
LOC: WPOUT 00:18 → OBT 00:29
PROVIDERS: PCP Nurse Practitioner; Visit Provider Advanced Practice Midwife
DX: O47.1 False labor at or after 37 completed weeks of gestation (principal); Z3A.37 37 weeks gestation of pregnancy
CPT/HCPCS: 59025; 59050; 99218; G0378

== ENCOUNTER 2019-10-30 20:15 | Inpatient (IN) | payer MEDICAID, SELFPAY ==
[2019-10-29 00:31] VITALS: BMI 34.0
[2019-10-30] VITALS (10 sets, daily range): BP systolic 122–134; BP diastolic 80–89; PULSE 104–133; TEMP 36.5–36.9; O2SAT 97–98; BMI 33.7
[2019-10-30 18:13] LABS: ROM Internal Control Test YES-OK TO RESULT pt. (Internal QC); ROM Patient Test Negative (Negative)
[2019-10-30 20:12] LABS: ROM Internal Control Test YES-OK TO RESULT pt. (Internal QC)
[2019-10-30 20:13] LABS: ROM Patient Test POSITIVE (Negative)
[2019-10-30] MEDS: Lactated Ringers 1,000 ML 50 ML IV (20:50)
[2019-10-30 21:04] LABS: Hematocrit 34.4 % (37-47); Hemoglobin 10.6 g/dL (12.0-15.0); Mean Corp Hgb Conc 30.8 g/dL (32-36); Mean Corpuscular Hgb 24.7 pg (27.0-32.0); Mean Corpuscular Volume 80.2 fL (81-99); Mean Platelet Vol. 9.3 fl (6.2-12.0); POSITIVE COUNT YES; POSITIVE MORPHOLOGY YES; Platelet Count 263 K/mm3 (150-450); RBC Distribution Width CV 16.8 % (11.6-14.6); RBC Distribution Width SD 47.8 fl (35.1-43.9); Red Blood Count 4.29 M/mm3 (4.2-5.4); White Blood Count 20.1 K/mm3 (4.4-11.0)
[2019-10-30 21:05] LABS: Differential Indicated MANUAL DIFF
[2019-10-30 21:38] LABS: Eosinophil 1 % (0-5); Lymphocyte 17 % (19-41); Monocyte 6 % (0-10); Neutrophil-Band 2 % (0-5); Neutrophil-Segmented 74 % (47-70); Total Cells Counted 100 (MANUAL DIFF)
[2019-10-30 21:39] LABS: Platelet Estimate ADEQUATE (ADEQ); Red Cell Morphology NORM C+C NORMAL (NORM C&C)
[2019-10-30 21:40] LABS: Absolute Lymphocyte Count 3.42 X10^3/uL (0.83-4.51); Absolute Neutrophil Count 15.3 X10^3/uL (2.0-7.7)
[2019-10-30 22:52] LABS: Probe Check PASS; Specimen Processing Control PASS
--- NOTE | 2019-10-30 23:37 | PCM.HP.OB ---
- Problem List (1) Spontaneous rupture of membranes Status: Acute (2) Active labor at term Status: Acute History Date of Admission: 07/02/17 Final YENNIFER: 11/13/19 Final YENNIFER Source: LMP Gestational age: 38 Weeks and 0 Days History of this : This is a 24 year-old, G [5], P [2021], at 38 weeks 1 day gestational age. Presented with SROM clear fluid and contractions. History of gestational HTN. course complicated by tobacco use. Allergies No Known Allergies Allergy (Verified 10/29/19 00:41) Home Medications: Home Medications Aspirin [Aspirin, Baby] 81 mg PO DAILY 09/06/19 Vit No.130/Iron/Folic [ Tablet] 1 tab PO DAILY 09/06/19 Smoking Status: Light Smoker (<10/day) Alcohol: None Number of Fetus(es): 1 NST - FHR Rate Baby A Baseline: 150 Variability:: Moderate Accelerations:: 15 x 15 Decelerations:: None FHR Category:: Category I Uterine Activity:: every 2-3 minutes, strong History Past Pregnancies: Past Pregnancies Delivery Date Name GA/ Weeks Outcome Route Wt Sex Labor Length Anesthesia Delivery Location Provider FOB Labs: Mom's Problem List Problem Status Onset Code Spontaneous rupture of membranes Acute Active labor at term Acute Mom's Labs & Results 10/30/19 10/30/19 10/30/19 17:40 19:31 20:50 WBC 20.1 H RBC 4.29 Hgb 10.6 L Hct 34.4 L MCV 80.2 L MCH 24.7 L MCHC 30.8 L RDW Std Deviation 47.8 H RDW Coeff of Jazmine 16.8 H Plt Count 263 MPV 9.3 Neut % (Auto) Not Reportable Absolute Neuts (auto) 15.3 H Absolute Lymphs (auto) 3.42 Total Counted 100 Neutrophils % (Manual) 74 H Band Neutrophils % 2 Lymphocytes % (Manual) 17 L Monocytes % (Manual) 6 Eosinophils % (Manual) 1 Diff Path Review May foll Platelet Estimate ADEQUATE RBC Morphology NORM C+C Vag Amniotic Fld Detect Negative POSITIVE H COVID-19 (DORITA) Blood Type Antibody Screen 10/30/19 10/30/19 20:50 21:37 WBC RBC Hgb Hct MCV MCH MCHC RDW Std Deviation RDW Coeff of Jazmine Plt Count MPV Neut % (Auto) Absolute Neuts (auto) Absolute Lymphs (auto) Total Counted Neutrophils % (Manual) Band Neutrophils % Lymphocytes % (Manual) Monocytes % (Manual) Eosinophils % (Manual) Diff Path Review Platelet Estimate RBC Morphology Vag Amniotic Fld Detect COVID-19 (DORITA) Negative Blood Type AB POSITIVE Antibody Screen NEGATIVE Course Did the patient receive Yes care? Labs Blood Type: AB RH: POSITIVE RPR/VDRL/Syphilis Nonreactive Rubella status Immune HbSAg Negative Date Done: 05/02/19 Chlamydia Negative Gonorrhea Negative HIV/AIDS Non-Reactive Group B Strep: Negative Current Obstetrical History Gestational Diabetes No Incompetent Cervix No Infertility No IUGR No Macrosomia No Hypertension/Pre-eclampsia No Placenta Previa/Abruption No PTL/PROM No Uterine anomaly No Oligohydramnios No Polyhydramnios No Multiple gestation No Past Medical History Asthma No Diabetes No Hypertension No Heart disease No Mitral valve prolapse No Neurologic/Seizure disorder/ No Migraines Kidney disease No Liver disease No Varicosities Yes: left labia Clotting disorders/Hx of DVT No Thyroid Dysfunction No Other medical diseases No Psychiatric disorders Yes: anxiety- no medications Major trauma No Abnormal PAP smear No Sleep apnea No Mammogram in the last 2 years No Social History Marital Status: Alleged father Brandon Hx Smoking Yes Smoking Status Light Smoker (<10/day) Expected Delivery Method: Spontaneous Vaginal Review of Systems Constitutional: Denies: Chills, Fever, Weight Change HEENT: Denies: Head Aches, Sinus Congestion, Sinus Drainage Cardiovascular: Denies: Chest Pain, Palpitations Respiratory: Denies: Cough, Shortness of breath at rest, Sputum production Gastrointestinal: Denies: Abdominal Pain, Nausea, Vomiting Genitourinary: Denies: Dysuria Musculoskeletal: Denies: Joint Pain, Joint Tenderness Skin: Denies: Rash, Wounds Neurological: Denies: Numbness, Tingling, Focal weakness Psychiatric: Denies: Anxiety, Depression, Homicidal Ideations, Suicidal Ideations Hematologic/ Lymphatic: Denies: Easy Bruising, Easy Bleeding Physical Exam Vitals: Vital Signs Temp Pulse BP Pulse Ox 97.9 F 106 H 129/83 H 97 10/30/19 22:22 10/30/19 22:21 10/30/19 22:21 10/30/19 20:35 General: Alert, Oriented x3, Cooperative HEENT: Atraumatic, Normocephalic [employer]: Normal external genitalia Estimated gestational size: Appropriate for gestational size Presentation: Cephalic Cervix Dilation (cm): 1.5 Station: -1 Effacement (%): 80 Assessment/Plan All Active Problems Decreased movement (Acute) Uterine contractions (Acute) Spontaneous rupture of membranes (Acute) Active labor at term (Acute) This is a 24 year-old, G [5], P [2021], at 38 weeks 2 days gestational age. A:SROM Active Labor P: 1) Admit to labor and delivery. Routine labs 2) Rapid COVID screening, no covid contacts and asymptomatic 3) Continuous monitoring 4) Planning unmedicated 5) notified of labor and collaborative physician 6) Planning Nexplanon in hospital
[2019-10-30] MEDS: Oxytocin 30 units/NS 500 ml 30 UNITS/500 ML IV.SOLN 334 UNITS IV (23:52)
[2019-10-31] VITALS (15 sets, daily range): BP systolic 123–154; BP diastolic 70–94; PULSE 64–102; RESP 14–17; TEMP 36.5–37.2
--- NOTE | 2019-10-31 00:08 | PCM.OPRPT ---
Problem List (1) Spontaneous rupture of membranes Status: Acute (2) Active labor at term Status: Acute (3) Spontaneous vaginal delivery Status: Acute Vaginal Delivery Maternal Presentation: Spontaneous Rupture of Membranes Amniotic Membrane Rupture Type: Spontaneous at home Amniotic Fluid Description: Clear Final YENNIFER: 11/13/19 Final YENNIFER Source: [place] <20 weeks Gestational age: 38 Weeks and 1 Days Date of Procedure: 10/31/19 Pre-Operative Diagnosis: SROM Post-Operative Diagnosis: Surgery/ Procedure Performed: Spontaneous Vaginal Delivery Type of Anesthesia: None Description of Procedure: Upon arrival 7cm per my exam and patient with strong urge to push. Support through contractions. Progressed to complete and spontaneous pushing efforts. Infant head delivered and body forthcoming without delay. APGARS 8,9. placed on maternal abdomen, spontaneous cry, mouth and nares wiped for secretions. Pitocin started for active 3rd stage management. Cord clamped and cut by friend. Placenta delivered spontaneously intact, 3 vessel cord. Perineum inspected and intact, no laceration or repair needed. Fundus firm and hemostasis achieved. EBL 200ml. Planning to breastfeed. Mom and baby stable. notified of delivery. Presentation: Vertex Placental Delivery Description: Spontaneous Cord Vessel Description: 3 Vessels Cord Entanglement: None Estimated Blood Loss: 200ml Infant A gender: Female (1 minute): 8 (5 minute): 9 Episiotomy Description: None Laceration: None Medications given after delivery: IV Pitocin Complications: None
--- NOTE | 2019-10-31 00:44 | OB.TRI.PN ---
Progress Notes Date of Service: 10/30/19 Progress Note: at 38w9d presents with leakage of fluid and back pain. No vaginal bleeding. No regular contractions. O: 150, accels, moderate variability TOCO: None Cervix 4 cm per nursing ROM plus negative A: Vaginal discharge P: 1) Discharge home Laboratory Studies: Laboratory Tests 10/30/19 10/30/19 10/30/19 Range/Units 21:37 20:50 20:50 WBC 20.1 H (4.4-11.0) K/mm3 RBC 4.29 (4.2-5.4) M/mm3 Hgb 10.6 L (12.0-15.0) g/dL Hct 34.4 L (37-47) % MCV 80.2 L (81-99) fL MCH 24.7 L (27.0-32.0) pg MCHC 30.8 L (32-36) g/dL RDW Std Deviation 47.8 H (35.1-43.9) fl RDW Coeff of Jazmine 16.8 H (11.6-14.6) % Plt Count 263 (150-450) K/mm3 MPV 9.3 (6.2-12.0) fl Neut % (Auto) Not Reportable Absolute Neuts (auto) 15.3 H (2.0-7.7) X10^3/uL Absolute Lymphs (auto) 3.42 (0.83-4.51) X10^3/uL Total Counted 100 (MANUAL DIFF) Neutrophils % (Manual) 74 H (47-70) % Band Neutrophils % 2 (0-5) % Lymphocytes % (Manual) 17 L (19-41) % Monocytes % (Manual) 6 (0-10) % Eosinophils % (Manual) 1 (0-5) % Diff Path Review May foll Platelet Estimate ADEQUATE (ADEQ) RBC Morphology NORM C+C (NORM C&C) NORMAL Vag Amniotic Fld Detect (Negative) COVID-19 (DORITA) Negative (Not Detect) Blood Type AB POSITIVE Antibody Screen NEGATIVE 10/30/19 10/30/19 Range/Units 19:31 17:40 WBC (4.4-11.0) K/mm3 RBC (4.2-5.4) M/mm3 Hgb (12.0-15.0) g/dL Hct (37-47) % MCV (81-99) fL MCH (27.0-32.0) pg MCHC (32-36) g/dL RDW Std Deviation (35.1-43.9) fl RDW Coeff of Jazmine (11.6-14.6) % Plt Count (150-450) K/mm3 MPV (6.2-12.0) fl Neut % (Auto) Absolute Neuts (auto) (2.0-7.7) X10^3/uL Absolute Lymphs (auto) (0.83-4.51) X10^3/uL Total Counted (MANUAL DIFF) Neutrophils % (Manual) (47-70) % Band Neutrophils % (0-5) % Lymphocytes % (Manual) (19-41) % Monocytes % (Manual) (0-10) % Eosinophils % (Manual) (0-5) % Diff Path Review Platelet Estimate (ADEQ) RBC Morphology (NORM C&C) NORMAL Vag Amniotic Fld Detect POSITIVE H Negative (Negative) COVID-19 (DORITA) (Not Detect) Blood Type Antibody Screen - Problem List (1) Spontaneous rupture of membranes Status: Acute (2) Active labor at term Status: Acute (3) Spontaneous vaginal delivery Status: Acute
--- NOTE | 2019-10-31 08:36 | PCM.PN.OB ---
Patient Problems: Active and Suspected Problems Spontaneous rupture of membranes (Acute) Active labor at term (Acute) Spontaneous vaginal delivery (Acute) Subjective: Patient seen at bedside. Resting in bed. Pain well controlled. Voiding without difficulty. infant and stated going well. Lochia decreasing. Intact perineum - Physical Exam Vitals/I&O's: Vital Signs Temp Pulse Resp BP Pulse Ox 98.3 F 64 16 129/83 H 97 10/31/19 08:00 10/31/19 08:00 10/31/19 08:00 10/31/19 08:00 10/30/19 20:35 Oxygen Delivery Method Room Air Weight: 203 lb Body Mass Index (BMI) 33.7 Intake and Output for Last 24 Hours 10/29/19 10/30/19 10/31/19 23:59 23:59 23:59 Intake Total 151.67 / 151.67 500 / 500 Balance 151.67 / 151.67 500 / 500 General: Alert, Oriented x3, Cooperative HEENT: Atraumatic Neck: Supple, No JVD, Negative Carotid Bruits Lungs: Normal air movement Abdomen: Soft, Non Tender Skin: No rashes Musculoskeletal: No Tenderness to Palpation of Joints or Extremities Neurological: Cranial nerves II-XII grossly intact Psych/Mental Status: Normal Affect, Appropriate Laboratory Results 10/30/19 17:40: Vag Amniotic Fld Detect Negative 10/30/19 19:31: Vag Amniotic Fld Detect POSITIVE H 10/30/19 20:50: WBC 20.1 H, RBC 4.29, Hgb 10.6 L, Hct 34.4 L, MCV 80.2 L, MCH 24.7 L, MCHC 30.8 L, RDW Std Deviation 47.8 H, RDW Coeff of Jazmine 16.8 H, Plt Count 263, MPV 9.3, Neut % (Auto) Not Reportable, Absolute Neuts (auto) 15.3 H, Absolute Lymphs (auto) 3.42, Total Counted 100, Neutrophils % (Manual) 74 H, Band Neutrophils % 2, Lymphocytes % (Manual) 17 L, Monocytes % (Manual) 6, Eosinophils % (Manual) 1, Diff Path Review September, Platelet Estimate ADEQUATE, RBC Morphology NORM C+C 10/30/19 20:50: Blood Type AB POSITIVE, Antibody Screen NEGATIVE 10/30/19 21:37: COVID-19 (DORITA) Negative Current Medications Acetaminophen (Tylenol) 325 - 650 mg PO Q4H PRN PRN PRN Reason: Pain Score 1-3/10 Acetaminophen (Tylenol) 1,000 mg PO Q8H PRN PRN PRN Reason: Pain Score 1-3/10 Al Hydroxide/Mg Hydroxide (Mylanta Ii) 15 - 30 ml PO Q4H PRN PRN PRN Reason: INDIGESTION Bisacodyl (Dulcolax) 10 mg RECTAL UD PRN PRN Reason: If no BM Citric Acid/Sodium Citrate (Bicitra) 30 ml PO X1 PRN PRN Reason: Section Dibucaine (Dibucaine) 1 applic TOPICAL TID PRN PRN; Protocol PRN Reason: Discomfort Fentanyl Citrate (Sublimaze (100mcg Ampule)) 25 - 50 mcg IV Q2H PRN PRN PRN Reason: Pain Score 4-10/10 Hydrocortisone (Hytone) 1 applic TOPICAL TID PRN PRN; Protocol PRN Reason: Discomfort Lactated Ringer's () 500 mls @ 999 mls/hr IV .Q31M PRN PRN Reason: Epidural Lactated Ringer's () 500 mls @ 999 mls/hr IV .Q31M PRN PRN Reason: Corrective Measures Lactated Ringer's () 1,000 mls @ 50 mls/hr IV .Q20H DELISA Last Infusion: 10/30/19 23:52 Dose: Infused Documented by: Ibuprofen (Motrin) 600 mg PO Q6H PRN PRN PRN Reason: Pain Score 1-3/10 Methylergonovine Maleate (Methergine) 0.2 mg IM X1 PRN PRN Reason: Excess bleeding/uterine atony Ondansetron HCl (Zofran) 4 mg IV Q4H PRN PRN PRN Reason: NAUSEA Ondansetron HCl (Zofran) 4 mg IV Q4H PRN PRN PRN Reason: Nausea Multivit/Folic Acid/Iron (Prenatabs Fa) 1 tablet PO DAILY@1200 DELISA Prochlorperazine Edisylate (Compazine Iv) 10 mg IV Q6H PRN PRN PRN Reason: NAUSEA Senna/Docusate Sodium (Senokot-S, Sarah-Colace) 1 - 2 tablet PO DAILY PRN PRN PRN Reason: Constipation Simethicone (Mylicon) 80 mg PO PCHS PRN PRN Reason: Indigestion/Stomach pain Sodium Chloride () 10 - 40 ml IV X1 PRN PRN Reason: SALINE FLUSH Sodium Chloride () 5 - 15 ml IV UD PRN PRN Reason: SALINE FLUSH Medical Necessity - Tobacco Use Smoking Status: Light Smoker (<10/day) Assessment/Plan All Active Problems Decreased movement (Acute) Uterine contractions (Acute) Spontaneous rupture of membranes (Acute) Active labor at term (Acute) Spontaneous vaginal delivery (Acute) PPD #1 Routine care Pain management Desires Nexplanon insertion prior to discharge home Anticipate discharge home tomorrow morning
[2019-10-31 12:26] LABS: Pathologist Review Reviewed
[2019-10-31] MEDS: Prenatal Vits Tablet 1 TABLET PO (12:30)
[2019-10-31] MEDS: Ibuprofen 600 MG Tablet PO ×2 (12:33→19:56)
[2019-10-31] MEDS: Etonogestrel 68 MG IMPLANT SQ (20:00)
--- NOTE | 2019-10-31 20:24 | PCM.PN.BLA ---
Progress Note Patient signed LARC consent and desires placement of Nexplanon. B/R/A discussed with patient and she wishes to go forward with placement. Consent signed. Nexplanon placed without difficulty in left arm. Pressure dressing applied. Card given for date of placement. Patient tolerated procedure well.
[2019-11-01 01:10] VITALS: BP 104/55; PULSE 74; RESP 16; TEMP 36.3
--- NOTE | 2019-11-01 07:48 | PCM.PN.OB ---
Patient Problems: Active and Suspected Problems Spontaneous rupture of membranes (Acute) Active labor at term (Acute) Spontaneous vaginal delivery (Acute) Subjective: Patient seen at bedside. Feeling good and denies pain. Ambulating in room and voiding without difficulty. Lochia mild. Objective: Fundus firm 2 below U, Perineum intact - Physical Exam Vitals/I&O's: Vital Signs Temp Pulse Resp BP Pulse Ox 97.4 F L 74 16 104/55 L 97 11/01/19 01:10 11/01/19 01:10 11/01/19 01:10 11/01/19 01:10 10/30/19 20:35 Oxygen Delivery Method Room Air Weight: 203 lb Body Mass Index (BMI) 33.7 Intake and Output for Last 24 Hours 10/30/19 10/31/19 11/01/19 23:59 23:59 23:59 Intake Total 151.67 / 151.67 500 / 500 Balance 151.67 / 151.67 500 / 500 General: Alert, Oriented x3 HEENT: Normocephalic Lungs: Normal air movement Cardiovascular: Regular rate, No murmurs Abdomen: Bowel Sounds Present, Soft, Passing Flatus Extremities: No Calf Tenderness Skin: No rashes Neurological: Cranial nerves II-XII grossly intact Psych/Mental Status: Normal Affect, Appropriate Laboratory Results 10/30/19 20:50: Diff Path Review Reviewed Current Medications Acetaminophen (Tylenol) 325 - 650 mg PO Q4H PRN PRN PRN Reason: Pain Score 1-3/10 Acetaminophen (Tylenol) 1,000 mg PO Q8H PRN PRN PRN Reason: Pain Score 1-3/10 Al Hydroxide/Mg Hydroxide (Mylanta Ii) 15 - 30 ml PO Q4H PRN PRN PRN Reason: INDIGESTION Bisacodyl (Dulcolax) 10 mg RECTAL UD PRN PRN Reason: If no BM Citric Acid/Sodium Citrate (Bicitra) 30 ml PO X1 PRN PRN Reason: Section Dibucaine (Dibucaine) 1 applic TOPICAL TID PRN PRN; Protocol PRN Reason: Discomfort Fentanyl Citrate (Sublimaze (100mcg Ampule)) 25 - 50 mcg IV Q2H PRN PRN PRN Reason: Pain Score 4-10/10 Hydrocortisone (Hytone) 1 applic TOPICAL TID PRN PRN; Protocol PRN Reason: Discomfort Lactated Ringer's () 500 mls @ 999 mls/hr IV .Q31M PRN PRN Reason: Epidural Lactated Ringer's () 500 mls @ 999 mls/hr IV .Q31M PRN PRN Reason: Corrective Measures Ibuprofen (Motrin) 600 mg PO Q6H PRN PRN PRN Reason: Pain Score 1-3/10 Last Admin: 10/31/19 19:56 Dose: 600 mg Documented by: Methylergonovine Maleate (Methergine) 0.2 mg IM X1 PRN PRN Reason: Excess bleeding/uterine atony Ondansetron HCl (Zofran) 4 mg IV Q4H PRN PRN PRN Reason: NAUSEA Ondansetron HCl (Zofran) 4 mg IV Q4H PRN PRN PRN Reason: Nausea Multivit/Folic Acid/Iron (Prenatabs Fa) 1 tablet PO DAILY@1200 DELISA Last Admin: 10/31/19 12:30 Dose: 1 tablet Documented by: Prochlorperazine Edisylate (Compazine Iv) 10 mg IV Q6H PRN PRN PRN Reason: NAUSEA Senna/Docusate Sodium (Senokot-S, Sarah-Colace) 1 - 2 tablet PO DAILY PRN PRN PRN Reason: Constipation Simethicone (Mylicon) 80 mg PO PCHS PRN PRN Reason: Indigestion/Stomach pain Sodium Chloride () 10 - 40 ml IV X1 PRN PRN Reason: SALINE FLUSH Sodium Chloride () 5 - 15 ml IV UD PRN PRN Reason: SALINE FLUSH Medical Necessity - Tobacco Use Smoking Status: Light Smoker (<10/day) Assessment/Plan All Active Problems Decreased movement (Acute) Uterine contractions (Acute) Spontaneous rupture of membranes (Acute) Active labor at term (Acute) Spontaneous vaginal delivery (Acute) PPD #2 Discharge home Nexplanon placed 10/31/2019 Will follow up in office in 6 weeks
--- NOTE | 2019-11-01 07:54 | DCINST_ITS ---
Discharge Activity: Return to Normal Activity May resume sexual activity in: 4-6 weeks Additional Instructions: If you experience any of the following, contact your healthcare provider. * Bleeding that soaks a pad every hour for 2 hours * Fever 100.4 or higher * Unrelieved incision or abdominal pain * Swelling, redness, discharge or bleeding from your incision or episiotomy site * Your incision begins to separate * Problems urinating (including inability to urinate or burning while urin ating). * Visual changes * Severe headache * Flu-like symptoms * Pain or redness in one of both of your breasts * Pain, warmth, tenderness or swelling in your legs, especially the calf area * Frequent nausea and vomiting * Symptoms of depression or anxiety If you experience any of the following, call 911 or go to the nearest Emergency Room. * Chest pain * Problems breathing * Seizure activity * Partial or complete paralysis of a body part, slurred speech, weakness or drooping of the face, or a sudden inability to walk or hold your balance Allergies/Adverse Reactions: Allergies No Known Allergies Allergy (Verified 10/29/19 00:41) Medications to take at Discharge Aspirin [Aspirin, Baby] 81 mg PO DAILY 09/06/19 Vit No.130/Iron/Folic [ Tablet] 1 tab PO DAILY 09/06/19 Primary Care Physician: Paty Mercedes NP-C [Primary Care Provider] - Test Results: Test results from this visit will be discussed in further detail at your follow- up appointment, if applicable.
--- NOTE | 2019-11-01 07:54 | PCM.DCVAG ---
Discharge Activity: Return to Normal Activity May resume sexual activity in: 4-6 weeks Additional Instructions: If you experience any of the following, contact your healthcare provider. Bleeding that soaks a pad every hour for 2 hours Fever 100.4 or higher Unrelieved incision or abdominal pain Swelling, redness, discharge or bleeding from your incision or episiotomy site Your incision begins to separate Problems urinating (including inability to urinate or burning while urinating). Visual changes Severe headache Flu-like symptoms Pain or redness in one of both of your breasts Pain, warmth, tenderness or swelling in your legs, especially the calf area Frequent nausea and vomiting Symptoms of depression or anxiety If you experience any of the following, call 911 or go to the nearest Emergency Room. Chest pain Problems breathing Seizure activity Partial or complete paralysis of a body part, slurred speech, weakness or drooping of the face, or a sudden inability to walk or hold your balance Allergies/Adverse Reactions: Allergies No Known Allergies Allergy (Verified 10/29/19 00:41) Medications to take at Discharge Aspirin [Aspirin, Baby] 81 mg PO DAILY 09/06/19 Vit No.130/Iron/Folic [ Tablet] 1 tab PO DAILY 09/06/19 Primary Care Physician: Paty Mercedes NP-C [Primary Care Provider] - Test Results: Test results from this visit will be discussed in further detail at your follow-up appointment, if applicable.
[2019-11-01 08:07] VITALS: BP 107/65; PULSE 71; RESP 16; TEMP 36.4
== END 2019-11-01 10:25 | disposition home or self-care (01) | DRG 807 ==
LOC: WPOUT 20:20 → WP 20:20
PROVIDERS: Admitting Provider Advanced Practice Midwife; PCP Nurse Practitioner; Referring Provider Advanced Practice Midwife; Visit Provider Advanced Practice Midwife
DX: O26.23 Pregnancy care for patient with recurrent pregnancy loss, third trimester (principal); Z37.0 Single live birth; O99.334 Smoking (tobacco) complicating childbirth; F17.200 Nicotine dependence, unspecified, uncomplicated; Z3A.38 38 weeks gestation of pregnancy; Z30.017 Encounter for initial prescription of implantable subdermal contraceptive
CPT/HCPCS: 59025; 59050; 84112; 85025; 86850; 86900; 86901; 87635; 99218; G2023; J7120; G0378; U0003

== ENCOUNTER 2021-02-25 10:11 | Emergency (ER) | payer MEDICAID, SELFPAY ==
[2021-02-25 10:13] VITALS: BP 137/94; PULSE 112; RESP 18; TEMP 37.1; O2SAT 97; BMI 31.7
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
[2021-02-25] MEDS: Diphth,Pertuss(Acell),Tet Vac 0.5 ML Vial IM (10:57)
== END 2021-02-25 11:03 | disposition home or self-care (01) ==
PROVIDERS: Emergency Provider Emergency Medicine
DX: S01.112A Laceration without foreign body of left eyelid and periocular area, initial encounter (principal); Y04.0XXA Assault by unarmed brawl or fight, initial encounter; Y92.9 Unspecified place or not applicable; Y99.9 Unspecified external cause status; F17.210 Nicotine dependence, cigarettes, uncomplicated; Z23 Encounter for immunization
CPT/HCPCS: 12011; 90715; 99282

== ENCOUNTER 2021-08-30 08:13 | Day surgery (SDC) | payer MEDICAID, SELFPAY ==
[2021-08-30] VITALS (8 sets, daily range): BP systolic 104–133; BP diastolic 61–90; PULSE 68–103; RESP 12–16; TEMP 36.2–36.6; O2SAT 95–99; BMI 32.3
--- NOTE | 2021-08-30 | FALS_PTH ---
PATIENT: LAURIE CHRISTIE LOC: [facility] [place] U#:[id number] AGE/SX: 26/F ROOM: RE08/30/[address]: Dr. Luh Jeronimo, MDDOB: 1995 BED: DIS: 08/30/2021 SPEC #: [id number] RECD: 08/30/21 13:09 STATUS: AL MAY #: [id number] HANH: 08/30/21 00:[address]: Luh Jeronimo DEPT: SURGICAL PATHOLOGY RECD BY: Heri Weinberg ENTERED: 08/30/21 13:10 SP TYPE: FALL TUBES OTHR DR: No Primary Care Phys Tissues: Fallopian tube Procedures: Surgery Specimen Level II HEADER OPERATION: Laparoscopic salpingectomy PRE-OP DIAGNOSIS: Sterilization TISSUE SUBMITTED: Bilateral fallopian tubes MICROSCOPIC DIAGNOSIS Bilateral fallopian tubes, salpingectomy: Bilateral fallopian tubes, no pathologic diagnosis. SJ:louie 09/02/2021 MICROSCOPIC DESCRIPTION Slides are reviewed. GROSS DESCRIPTION Received in fixative is one container labeled with the patient's name and designated bilateral fallopian tubes. The specimen consists of bilateral fallopian tubes including fimbrial ends measuring 4.5 cm in length and 0.6 cm in diameter and 7 cm in length and 0.6 cm in diameter. The fallopian tubes are not identified as right or left. Sections reveal unremarkable cut surfaces. Nurse Advocate sections are submitted in two cassettes with each cassette containing one fallopian tube. / SINDI:louie 08/30/2021 TC:4 CPT: 02010 x2
--- NOTE | 2021-08-30 08:40 | PCM.PN.BLA ---
Progress Note See previous H&P note on paper chart. I have re-examined the patient. There are no clinical changes since date of exam.
[2021-08-30 08:44] LABS: Internal QC Validated? YES +Cl - CLEAR BKGD; Pregnancy, Urine Negative Negative
[2021-08-30] MEDS: Lactated Ringers 1,000 ML 15 ML IV ×2 (09:00→10:51)
--- NOTE | 2021-08-30 09:32 | EKG12_ITS ---
Test Reason : PRE OP Blood Pressure : / mmHG Vent. Rate : 063 BPM Atrial Rate : 063 BPM P-R Int : 176 ms QRS Dur : 082 ms QT Int : 414 ms P-R-T Axes : 034 010 018 degrees QTc Int : 423 ms Normal sinus rhythm with sinus arrhythmia Normal ECG When compared with ECG of 06-APR-2019 22:49, No significant change was found Confirmed by HENRY SOLANO, JESSICA ([id number]), offline editor HELEN PARKS ([id number]) on 09/06/2021 1:36:02 PM Referred By: Luh Jeronimo Confirmed By:LISA FIGUEROA MD
--- NOTE | 2021-08-30 09:32 | EX.PCM.DISCH ---
Discharge Instructions Procedure Other Diet Discharge Diet: No restrictions Activity May resume sexual activity in: 2 weeks Lifting Restrictions: 20-25 lbs Dressing / Incision Call your doctor if your incision/area has: Continuous Slow Oozing, Sudden Increased Bleeding, Increased Pain/ Swelling, Increased Redness, Foul Smelling Discharge and Swelling at the incision site Call your doctor if you observe: Fever of 101 or Higher, Inability to urinate, Inability to have a bowel movement, Using more than 1 pad per hour and Uncontrolled pain Additional Dressing/Incision Instructions:: You have skin glue over your incision sites, do not pick off. You may shower and let the soap and water run over the incision sites and dab dry. Follow Up Care Please Follow Up With: Luh Jeronimo MD When: 1-2 weeks post OP if you need an appointment please call [phone] Test Results: Test results from this visit will be discussed in further detail at your follow-up appointment, if applicable. Discharge Plan Admission Attending Provider: Luh Jeronimo Primary Care Provider: Care Physician,No Primary Discharge Orders/Prescriptions Prescriptions: No Action NK RF: 0
--- NOTE | 2021-08-30 09:33 | OP.PCM_ITS ---
Problems Associated Problem List Diagnoses (1) Encounter for sterilization: Report of Operation Date of Procedure: 08/30/21 Pre-Operative Diagnosis: desires sterilization Post-Operative Diagnosis: same Surgery/Procedure Performed:: laparoscopic bilateral salpingectomy Description of Surgical Findings:: normal tubes and ovaries bilaterally Surgeon: Luh Jeronimo collections analyst: None (MS 3 Malathi Junior ) Type of Anesthesia: General and Local Special Medications: 0.5 marcaine Specimen's removed: bilateral fallopian tubes Drains: none Estimated Blood Loss (mL): <5cc Fluids Replaced: 1000 Description of Procedure: After informed consent was obtained patient was taken to the operating room she was placed in supine position she was given anesthesia. She was then placed in the [facility] stirrups and she was prepped and draped in normal sterile fashion. Bladder was drained prior to the start of procedure. At this time attention was turned to the vaginal portion where weighted speculum placed at posterior fornix vagina single-tooth tenaculum was used to gently grasp the internal the cervix. uterus was gently sounded to approximately 8cm. Uterine manipulator was placed without difficulty. Legs then placed in parallel with the abdomen the tenaculum and the weighted speculum were removed. 2 towel clamps were placed at level of umbilicus. Marcaine was injected infraumbilical and a small incision was made. The 5 mm trocar was placed under direct visualization. CO2 gas was used to insufflate the intra-abdominal cavity. Upon inspection no gross abnormalities appreciated- the uterus tubes and ovaries appeared to be normal. At this time then the LLQ and RLQ ports were placed First Marcaine was injected and small incision was made a knife and the 5 mm trocars were placed. At this time then tubes were traced back to the fimbriated ends. Enseal was used to coagulate and ligate along mesosalpynx bilaterally until tubes removed completely. Good hemostasis was appreciated. At this time procedure was deemed complete successful. The gas was desufflated on from the intra-abdominal cavity. The trochars were removed. Skin was closed using 4-0 Monocryl in a subcutaneous fashion. Dermabond glue was placed. Instrument lap and needle counts were correct ?2. The uterine manipulator was removed. Vaginal sweep was performed it was negative. There were no complications anticipated normal postoperative course for this patient. Grafts/Implants Used: none Procedure Start Time: 10:13 Procedure Stop Time: 10:39 Complications none Admit VTE Documentation VTE Present on Admission: Yes VTE Mechan Device Prophylaxis: SCD's VTE Pharm Prophylaxis ordered?: No Reason prophylaxis not ordered:: Procedure Not Indicated
[2021-08-30] MEDS: Bupivacaine Mpf 0.5% 30 ML VIAL (10:13)
== END 2021-08-30 12:43 | disposition home or self-care (01) ==
LOC: SDC 08:14 → AC 08:15
PROVIDERS: Referring Provider Obstetrics & Gynecology; Visit Provider Obstetrics & Gynecology
PROC: (CPT 58661; principal; 2021-08-30 09:35)
DX: Z30.2 Encounter for sterilization (principal); F17.200 Nicotine dependence, unspecified, uncomplicated
CPT/HCPCS: 58661; 00840; 81025; 87426; 88302; 93005; C9803; J7120; C1760; J2405

== ENCOUNTER 2021-12-10 07:06 | Emergency (ER) | payer OTHER, MEDICAID, SELFPAY ==
[2021-12-10 07:07] VITALS: BP 130/96; PULSE 98; RESP 18; TEMP 36.6; O2SAT 99; BMI 32.3
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
--- NOTE | 2021-12-10 07:39 | RAD_ITS ---
STUDY: X-RAY - LEFT SHOULDER REASON FOR EXAM: Female, 26 years old. Injury/Pain TECHNIQUE: 4 view(s) of the shoulder. COMPARISON: None. FINDINGS: Normal glenohumeral articulation. There is no widening of the coracoclavicular distance. There is widening of the AC joint, but without displacement of the clavicle or widening of the coracoclavicular distance, consistent with a Type II acromioclavicular joint separation. Normal acromion. Normal humeral head and visualized proximal humerus. The soft tissue structures are unremarkable. Normal visualized pulmonary apex. RAD/Shoulder min 2 Views IMPRESSION: Type II left AC joint separation. Electronically Signed: Orlin Thompson MD at 8:23 EDT ,
--- NOTE | 2021-12-10 07:39 | RAD_ITS ---
STUDY: X-RAY - LEFT SCAPULA REASON FOR EXAM: Female, 26 years old. Pain following a fall. TECHNIQUE: 2 view(s) of the scapula were obtained. COMPARISON: None. FINDINGS: Normal scapula, including the osseous glenoid rim, acromion, scapular neck, spine, coracoid process, and visualized body. Normal glenohumeral articulation. Normal acromioclavicular joint. Normal visualized humeral head. Normal visualized pulmonary apex. RAD/Scapula IMPRESSION: Normal plain film x-ray examination of the scapula. Electronically Signed: Orlin Thompson MD at 8:09 EDT ,
--- NOTE | 2021-12-10 07:39 | EX.ED.UPPERE ---
HPI History of Present Illness Chief Complaint: Upper Extremity Injury Informant: patient Narrative Narrative: Patient is a 26-year-old female presenting with a left shoulder pain. Patient states she was walking this morning when she tripped over her shoelaces and fell. She landed directly onto her left shoulder on asphalt. She then rolled and slightly scraped up her left palm and her right elbow. Denies any her head or any loss of conscious. She states she walked inside initially was feeling okay but then she felt her shoulder pop and she immediately slammed it back into place. She denies any history of shoulder dislocations. She is been having increased pain with range of motion since. Denies associated numbness or tingling. Denies any weakness of the hand. No other complaints at this time. Did not take anything for pain prior to arrival. [facility] Medical History Smoker Wears glasses Home Medications NK 02/25/21 [History Last Taken Unknown] Allergy/AdvReac Type Severity Reaction Status Date / Time No Known Allergies Allergy Verified 12/10/21 07:10 Surgical History History of D&C Social History Smoking Status: Current every day smoker tobacco type: cigarettes ROS ROS ED Constitutional Constitutional ED: Denies chills or fever(s) Eyes Eyes: Denies blurry vision or change in vision ENT ENT ED: Denies rhinorrhea Cardiovascular Cardiovascular: Denies chest pain Respiratory/Chest Respiratory/Chest: Denies cough or dyspnea Gastrointestinal Gastrointestinal: Denies abdominal pain, nausea or vomiting Musculoskeletal Musculoskeletal: Reports other Details: left shoulder pain ; Denies back pain Integumentary Denies Abrasions or rash Neurologic Neurologic: Denies headache(s), paresthesias or weakness Psychiatric Psychiatric: Denies anxiety Hematologic/Lymphatic Hematologic/Lymphatic: Denies easy bleeding or easy bruising EXAM Physical Exam Const Vital Signs: 12/10/21 07:07 Temperature 97.9 F Temperature Source Temporal Pulse Rate 98 Respiratory Rate 18 Blood Pressure 130/96 H Blood Pressure Mean 107 Pulse Ox 99 Oxygen Delivery Method Room Air Positive well nourished and well developed General Appearance ED: well developed and NAD HEENT Reports moist mucous membranes normocephalic and atraumatic Eyes PERRL and EOMs intact bilaterally Neck full ROM and supple General: Negative for tenderness Chest Wall inspection of chest normal and palpation of chest normal Resp normal respiratory effort and clear to auscultation bilaterally Cardio regular rate, regular rhythm and no murmurs Cardio Narrative: 2+ radial pulses GI non-tender and non-distended Back/Spine Cervical Spine: Negative for cervical spine tenderness Thoracic Spine / Upper Back: Negative for thoracic spinal tenderness Lumbar Spine / Lower Back: Negative for lumbar spinal tenderness Extremity Extremity Narrative: Decreased range of motion of the left shoulder secondary to pain however she is able to flex the shoulder above 90 degrees as well as AB duct. No pinpoint bony tenderness. No tenderness over the left clavicle. Some left trapezius tenderness extending towards the scapula but no pinpoint bony tenderness of the scapula. Normal elbow, wrist and hand. Normal range of motion of the hand and fingers. No other bony tenderness or deformity in the other extremities. Neuro oriented x3, CN's II-XII intact bilaterally, moves all extremities, no focal motor deficits and no sensory deficits noted Skin Lesions: no lesions Trauma: no lacerations or abrasions MDM MDM MDM Narrative Medical decision making narrative: Patient evaluated for left shoulder pain after mechanical fall. No obvious signs of dislocation at this time. Will obtain x-ray. Is possible she dislocated earlier today and self reduced based on her story. Will give Motrin and obtain x-rays of the shoulder as well as scapula. If these are negative plan discharge home with a sling and outpatient Ortho follow-up. X-ray interpreted by myself as well as radiology. No dislocation or fracture however there is a second-degree AC joint separation. Patient is given a sling as well as Ortho outpatient follow-up. Given work restrictions per her request. Discharge Plan Triage Chief Complaint: Upper Extremity Injury ED Provider: Analisa Anton Dx/Rx/DC Orders Clinical Impression: Acute pain of left shoulder due to trauma, Acromioclavicular joint separation, type 2 Instructions: ED Sprain AC Joint Prescriptions: No Action NK Primary Care Provider: Care Physician,No Primary Referrals: Yovani Machado MD [STAFF PHYSICIAN] - As Needed Care Physician,No Primary [Primary Care Provider] - Disposition Disposition: Home, Self Care
[2021-12-10] MEDS: Ibuprofen 600 MG Tablet PO (07:52)
== END 2021-12-10 08:47 | disposition home or self-care (01) ==
PROVIDERS: Emergency Provider Emergency Medicine; Visit Provider Emergency Medicine
DX: S43.102A Unspecified dislocation of left acromioclavicular joint, initial encounter (principal); F17.210 Nicotine dependence, cigarettes, uncomplicated; W01.198A Fall on same level from slipping, tripping and stumbling with subsequent striking against other object, initial encounter; Y93.01 Activity, walking, marching and hiking
CPT/HCPCS: 73010; 73030; 99283

== ENCOUNTER 2022-04-25 00:40 | Emergency (ER) | payer MEDICAID, SELFPAY ==
[2022-04-25 00:41] VITALS: BP 152/114; PULSE 84; RESP 17; TEMP 36.2; O2SAT 99; BMI 28.1
--- NOTE | 2022-04-25 00:45 | EX.ED.DYSGE1 ---
HPI History of Present Illness Chief Complaint: Allergic Reaction Narrative Narrative: 27-year-old female here with concern for allergic reaction. States she is been on nitrofurantoin for 2 days for UTI states tonight she developed headache, fever felt fatigued. Denies any rash, nausea, shortness of breath, drooling, stridor. States symptoms have been constant, severe without alleviating exacerbating features. Old chart reviewed: No known drug allergies [facility] Medical History Smoker Wears glasses Home Medications cephalexin 500 mg capsule 500 mg PO Q8H 7 days #21 caps 04/25/22 [Rx Last Taken Unknown] nitrofurantoin monohydrate/macrocrystals 100 mg capsule 04/25/22 [History Last Taken Unknown] Allergy/AdvReac Type Severity Reaction Status Date / Time No Known Allergies Allergy Verified 04/25/22 00:47 Surgical History History of D&C Social History Smoking Status: Current every day smoker tobacco type: cigarettes ROS ROS ED ROS Narrative Constitutional: Denies fever HEENT: Denies sore throat Neck: Denies neck pain Cardiovascular: Denies chest pain, syncope Respiratory: Denies shortness of breath GI: Denies nausea vomiting or abdominal pain : Denies changes in urinary habits Musculoskeletal: Denies muscle or joint pain Neurologic: Denies numbness weakness or loss of sensation Skin denies rash EXAM Physical Exam Narrative Exam Narrative: Nursing triage notes reviewed, Vital signs reviewed Constitutional: please see mdm HENT: MMM Eyes: Pupils equal round and reactive to light, Extraocular muscles intact Neck: No stridor, no JVD, full neck ROM Lungs: Clear to auscultation, No wheezing or rales. No increased work of breathing, no conversational dyspnea, no accessory muscle use, no nasal flaring. No respiratory distress noted Heart: Regular rate and rhythm, No murmurs, No rubs and No gallops, 2+ distal pulses (radial, femoral, posterior tibial) in all extremities Abdomen: Soft, there is no tenderness, rigidity, rebound or guarding, no obvious peritoneal signs, no palpable pulsatile abdominal masses, no auscultated abdominal bruit : No CVAT Extremities: No edema Neuro: No focal neurological deficits, cranial nerves II through XII intact, 5/5 strength in all extremities. Intact sensation to light touch in all extremities, 2+ reflexes bilateral patella dens. Normal gait. No ataxia. Skin: No rash or lesions noted Const Vital Signs: 04/25/22 00:41 Temperature 97.2 F L Temperature Source Temporal Pulse Rate 84 Respiratory Rate 17 Blood Pressure 152/114 H Blood Pressure Mean 126 Pulse Ox 99 Oxygen Delivery Method Room Air MDM MDM MDM Narrative Medical decision making narrative: 27-year-old female here with concern for allergic reaction. The patient was hemodynamically stable, afebrile, nontoxic-appearing. No symptoms or exam findings suggestive of allergic reaction, anaphylaxis, angioedema or anaphylactic shock. She required no emergent allergic reaction treatment. Patient symptoms could be secondary to inflammatory milieux secondary to UTI. Did change patient antibiotic from nitrofurantoin to Keflex. Gave first dose here patient tolerated well wrote prescription for Keflex. Gave strict return precautions and follow-up instructions Treatment and Re-Evaluation Narrative: Tolerated Keflex is appropriate for discharge home. Discharge Plan Triage Chief Complaint: Allergic Reaction ED Provider: Inderjit De La Fuente Dx/Rx/DC Orders Clinical Impression: Drug side effects Instructions: ED Anaphylaxis, ED Cystitis Female Adult Prescriptions: New cephalexin 500 mg capsule 500 mg PO Q8H 7 Days Qty: 21 0RF No Action nitrofurantoin monohyd/m-cryst 100 mg capsule Stand Alone Forms: ED Work / School Excuse Primary Care Provider: Care Physician,No Primary Referrals: Mu Bowden MD [Med Staff - [employer]] - Care Physician,No Primary [Primary Care Provider] - Disposition Disposition: Home, Self Care
[2022-04-25] MEDS: Metoclopramide 5 MG TABLET PO (01:24)
[2022-04-25] MEDS: Cephalexin 250 MG Capsule 500 MG PO (01:24)
== END 2022-04-25 01:36 | disposition home or self-care (01) ==
PROVIDERS: Emergency Provider Emergency Medicine; Visit Provider Emergency Medicine
DX: T78.40XA Allergy, unspecified, initial encounter (principal); F17.210 Nicotine dependence, cigarettes, uncomplicated; X58.XXXA Exposure to other specified factors, initial encounter
CPT/HCPCS: 99282

== ENCOUNTER 2022-06-15 15:46 | Emergency (ER) | payer MEDICAID, SELFPAY ==
[2022-06-15 15:47] VITALS: BP 145/108; PULSE 90; RESP 18; TEMP 36.6; O2SAT 99; BMI 28.8
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
[2022-06-15] MEDS: cycloBENZAPRine HCl 10 MG Tablet PO (16:12)
== END 2022-06-15 16:15 | disposition home or self-care (01) ==
LOC: ED 16:02
PROVIDERS: Emergency Provider Emergency Medicine; Visit Provider Emergency Medicine
DX: S16.1XXA Strain of muscle, fascia and tendon at neck level, initial encounter (principal); F17.210 Nicotine dependence, cigarettes, uncomplicated; X58.XXXA Exposure to other specified factors, initial encounter
CPT/HCPCS: 99283

== ENCOUNTER 2022-06-16 20:50 | Emergency (ER) | payer MEDICAID, SELFPAY ==
[2022-06-16 20:51] VITALS: BP 138/107; PULSE 112; RESP 18; TEMP 35.8; O2SAT 100; BMI 28.8
[2022-06-16 22:51] VITALS: RESP 16
--- NOTE | 2022-06-16 22:55 | RAD_ITS ---
STUDY: X-RAY - SOFT TISSUE NECK REASON FOR EXAM: Female, 27 years old. neck pain, no trauma TECHNIQUE: 2 view(s) of the neck were obtained. COMPARISON: None. FINDINGS: Normal visualized nasopharynx, oropharynx, hypopharynx. Normal epiglottis. Normal visualized subglottic tracheal air column. Normal prevertebral soft tissue structures. Normal visualized osseous structures. The soft tissue structures are unremarkable. RAD/Neck for Soft Tissue IMPRESSION: Normal x-ray soft tissue neck. Electronically Signed: Veto Upton MD at 23:19 EST ,
[2022-06-16 23:16] LABS: Absolute Lymphocyte Count 3.23 X10^3/uL (0.83-4.51); Absolute Neutrophil Count 7.2 X10^3/uL (2.0-7.7); Basophil# 0.06 X10^3/uL; Basophil% 0.5 % (0-1); Eosinophil# 0.45 X10^3/uL; Eosinophils% 3.9 % (0-5); Hematocrit 44.5 % (37-47); Hemoglobin 14.4 g/dL (12.0-15.0); Lymphocyte # 3.23 X10^3/ul (0.83-4.51); Lymphocyte % 27.9 % (19-41); Mean Corp Hgb Conc 32.4 g/dL (32-36); Mean Corpuscular Hgb 28.6 pg (27.0-32.0); Mean Corpuscular Volume 88.5 fL (81-99); Mean Platelet Vol. 9.3 fl (6.2-12.0); Monocyte# 0.65 X10^3/uL; Monocyte% 5.6 % (0-10); NRBC Flagged by Analyzer 0 % (0-5); Neutrophil # 7.15 X10^3/uL (2.7-7.7); Neutrophil % 61.7 % (47-70); Platelet Count 343 K/mm3 (150-450); RBC Distribution Width CV 13.2 % (11.6-14.6); RBC Distribution Width SD 42.8 fl (35.1-43.9); Red Blood Count 5.03 M/mm3 (4.2-5.4); White Blood Count 11.6 K/mm3 (4.4-11.0)
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
[2022-06-16 23:40] LABS: T4 Free Direct 0.99 ng/dL (0.76-1.46); Thyroid Stim Hormone (TSH) 1.59 uIU/mL (0.358-3.74)
[2022-06-16 23:47] LABS: Internal QC Validated? YES +Cl - CLEAR BKGD; Monotest Negative (Negative)
[2022-06-17] MEDS: Ketorolac 15 MG/ML Vial IV (00:57)
[2022-06-17] MEDS: predniSONE 20 MG Tablet 60 MG PO (00:57)
== END 2022-06-17 00:58 | disposition home or self-care (01) ==
PROVIDERS: Emergency Provider Emergency Medicine; Visit Provider Emergency Medicine
DX: S16.1XXA Strain of muscle, fascia and tendon at neck level, initial encounter (principal); J02.9 Acute pharyngitis, unspecified; M26.609 Unspecified temporomandibular joint disorder, unspecified side; L04.9 Acute lymphadenitis, unspecified; F17.210 Nicotine dependence, cigarettes, uncomplicated
CPT/HCPCS: 70360; 84439; 84443; 85025; 86308; 99283; A4216

== ENCOUNTER 2023-04-26 00:55 | Emergency (ER) | payer MEDICAID, SELFPAY ==
[2023-04-26 00:57] VITALS: BP 133/96; PULSE 85; RESP 20; TEMP 36.2; O2SAT 93; BMI 29.2
--- NOTE | 2023-04-26 01:10 | EDS_ITS ---
HPI History of Present Illness Chief Complaint: Allergic Reaction Informant: patient Narrative Narrative: Patient states about 18 hours ago, when she woke up this past morning, she was itchy on her face, upper chest, bilateral forearms, and tonight that has progre ssed to feeling like her throat is swelling and she is having difficulty breathing. She denies any chest tightness/symptoms. No near-syncope or syncope. She took a some type of [id number] allergy medication she is not sure exactly what it is, but it did not seem to help very much tonight. She states she has a new dish soap, but cannot think of any other new topicals or foods that she is suspicious could be causing this. She does not have asthma. She has not had this happen before. [facility] Medical History Smoker Wears glasses Home Medications NK 04/26/23 [History Last Taken Unknown] epinephrine 0.3 mg/0.3 mL injection, auto-injector (EpiPen) 0.3 mg (0.3 mL) IM Q4H PRN anaphylaxis #2 ea 04/26/23 [Rx Last Taken Unknown] prednisone 20 mg tablet 40 mg (2 x 20 mg) PO DAILY #10 TABLETS 04/26/23 [Rx Last Taken Unknown] Allergy/AdvReac Type Severity Reaction Status Date / Time No Known Allergies Allergy Verified 04/26/23 00:56 Surgical History History of D&C Social History Smoking Status: Current every day smoker tobacco type: e-cigarettes ROS ROS ED Constitutional Constitutional ED: Denies chills or fever(s) Eyes Eyes: Denies change in vision or diplopia ENT ENT ED: Reports throat swelling; Denies rhinorrhea or sore throat Cardiovascular Cardiovascular: Denies chest pain or palpitations Respiratory/Chest Respiratory/Chest: Reports dyspnea; Denies cough Gastrointestinal Gastrointestinal: Denies abdominal pain, diarrhea, nausea or vomiting Genitourinary Genitourinary ED: Denies dysuria or hematuria Musculoskeletal Musculoskeletal: Denies back pain or neck pain Integumentary Reports pruritus and rash; Denies abscess Neurologic Neurologic: Denies headache(s), paresthesias or weakness Psychiatric Psychiatric: Denies anxiety or suicidal thoughts EXAM Physical Exam Const Vital Signs: 04/26/23 00:57 04/26/23 01:15 Temperature 97.1 F L Temperature Source Temporal Pulse Rate 85 89 Respiratory Rate 20 H 20 H Respiratory Pattern Normal Blood Pressure 133/96 H Blood Pressure Mean 108 Pulse Ox 93 Oxygen Delivery Method Room Air Positive well nourished and well developed General Appearance ED: well developed and NAD HEENT Reports moist mucous membranes HEENT Narrative: Very slight stridor. No distress, conversive in full sentences. normocephalic and atraumatic Eyes PERRL and EOMs intact bilaterally Neck full ROM and supple Resp normal respiratory effort and clear to auscultation bilaterally Cardio regular rate, regular rhythm and no murmurs Rate: Negative for tachycardic GI non-tender and non-distended Auscultation: normoactive bowel sounds Palpation: soft Back/Spine no CVA tenderness General Back: other FROM Extremity normal to inspection General Extremety ED: Negative for edema, pulses abnormal or tenderness General Extremity: Negative for edema or pulses abnormal Neuro oriented x3, CN's II-XII intact bilaterally and no sensory deficits noted Sensorium / Orientation: awake and alert Motor Exam: strength 5/5 throughout Psych mental status grossly normal Skin no wounds Skin Narrative: On forearms, face, upper chest slight erythema without raised urticaria or other svetlana lesions, patient states pruritic. No bullae. MDM MDM MDM Narrative Medical decision making narrative: Differential includes an allergic reaction that is causing effects in her throat, in which case epinephrine aerosol should help, so we started with that and a dose of prednisone 40 mg. The racemic epinephrine resolved her sensation of throat swelling and dyspnea and she had no more stridor afterwards. She is comfortable going home, will prescribe her an EpiPen as well as the rest of a 5-6-day course of prednisone and follow-up given as well as instructions to return to the ER for symptoms of anaphylaxis. Critical Care Time Critical Care Time: Yes Critical care time (excluding procedures): 30-74 minutes (32 min), Including time spent:, Discussing w/Patient &/or Family/Consulting Application Engineer and Performing Direct Patient Care at Bedside Discharge Plan Triage Chief Complaint: Allergic Reaction ED Provider: Oj Coffman Dx/Rx/DC Orders Clinical Impression: Anaphylactoid reaction Instructions: ED Anaphylaxis, Allergy Overview Prescriptions: New epinephrine [EpiPen] 0.3 mg/0.3 mL auto-injector 0.3 mg IM Q4H PRN (Reason: anaphylaxis) Qty: 2 0RF prednisone 20 mg tablet 40 mg PO DAILY Qty: 10 0RF No Action NK Primary Care Provider: Care Physician,No Primary Referrals: Iris Sykes [Non-Staff] - 1 Week Activity Restrictions/Additional Instructions: If you have recurrent throat swelling or any of the symptoms of anaphylaxis on the following pages, use the EpiPen and return to the ER immediately. Take the prednisone as prescribed until finished, about every 24 hours or so. Disposition Disposition: Home, Self Care
[2023-04-26 01:15] VITALS: PULSE 89; RESP 20
[2023-04-26] MEDS: Racepinephrine HCl 0.5 ML VIAL.NEB. INHALATION (01:15)
[2023-04-26] MEDS: predniSONE 20 MG Tablet 40 MG PO (01:27)
[2023-04-26 01:56] VITALS: PULSE 75; RESP 16; O2SAT 97
== END 2023-04-26 01:57 | disposition home or self-care (01) ==
PROVIDERS: Emergency Provider Emergency Medicine; Visit Provider Emergency Medicine
DX: T55.0X1A Toxic effect of soaps, accidental (unintentional), initial encounter (principal); F17.290 Nicotine dependence, other tobacco product, uncomplicated
CPT/HCPCS: 94640; 99282

== ENCOUNTER 2023-09-30 14:06 | Emergency (ER) | payer MEDICAID, SELFPAY ==
[2023-09-30 14:07] VITALS: BP 140/90; PULSE 94; RESP 16; TEMP 36.2; O2SAT 100; BMI 29.8
== END 2023-09-30 15:45 | disposition left against medical advice (07) ==
LOC: ED 15:48
DX: R10.9 Unspecified abdominal pain (principal)

== ENCOUNTER 2023-11-12 08:45 | Emergency (ER) | payer OTHER, MEDICAID, SELFPAY ==
[2023-11-12 08:46] VITALS: BP 146/103; PULSE 80; RESP 16; TEMP 36.4; O2SAT 99; BMI 28.9
[2023-11-12] MEDS: Ibuprofen 600 MG Tablet PO (10:40)
--- NOTE | 2023-11-12 10:43 | EX.ED.UPPERE ---
HPI History of Present Illness Chief Complaint: Upper Extremity Injury Narrative Narrative: 28-year-old female presenting with right ring finger pain. She states she was using a screen press at work and is clamped down on her right ring finger. She states she pulled it out quickly. She notes some bleeding around the lateral aspect of the nail and a subungual hematoma which is very small at the medial aspect. She states is painful and she is concerned about broken. She is able to move all joints on her right ring finger without difficulty. No deformity. PFSH PFSH Medical History Wears glasses Smoker Home Medications ?Medication ?Instructions ?Recorded ?Last Taken ?Type NK 04/26/23 Unknown History epinephrine 0.3 mg/0.3 mL 0.3 mg (0.3 mL) IM Q4H PRN 04/26/23 Unknown Rx injection, auto-injector (EpiPen) anaphylaxis #2 ea prednisone 20 mg tablet 40 mg (2 x 20 mg) PO DAILY #10 04/26/23 Unknown Rx TABLETS Allergy/AdvReac Type Severity Reaction Status Date / Time No Known Allergies Allergy Verified 11/12/23 08:46 Surgical History History of D&C Social History Smoking Status: Current every day smoker tobacco type: e-cigarettes ROS ROS ED Constitutional Constitutional ED: Denies chills, fever(s) or sweats Eyes Eyes: Denies blurry vision or change in vision ENT ENT ED: Denies ear pain or sore throat Cardiovascular Cardiovascular: Denies chest pain, palpitations or racing heartbeat Respiratory/Chest Respiratory/Chest: Denies cough, dyspnea or sputum Gastrointestinal Gastrointestinal: Denies abdominal pain, constipation, diarrhea, nausea or vomiting Genitourinary Genitourinary ED: Denies dysuria, hematuria or urinary frequency Musculoskeletal Musculoskeletal: Denies arthralgias, myalgias or neck pain Integumentary Reports other Details: Right ring finger pain, subungual hematoma ; Denies abscess, Abrasions or rash Neurologic Neurologic: Denies headache(s), paresthesias or weakness Psychiatric Psychiatric: Denies anxiety, depression, suicidal ideation or suicidal thoughts Endocrine Endocrinology: Denies polydipsia or polyuria EXAM Physical Exam Const Vital Signs: 11/12/23 08:46 Temperature 97.6 F L Temperature Source Temporal Pulse Rate 80 Respiratory Rate 16 Blood Pressure 146/103 H Blood Pressure Mean 117 Pulse Ox 99 Oxygen Delivery Method Room Air Positive well nourished General Appearance ED: NAD HEENT Reports moist mucous membranes normocephalic and atraumatic Resp normal respiratory effort Cardio regular rate Neuro oriented x3 and CN's II-XII intact bilaterally Sensorium / Orientation: alert Skin Skin Narrative: Right ring finger neurovascular intact. No deformities. Able to range all joints without difficulty. There is a very small subungual hematoma at the medial aspect of the base. There is also some bleeding at the lateral aspect along the side of the nail. The nail is in place. MDM MDM MDM Narrative Medical decision making narrative: Patient presenting with finger pain. Apparently this was screen precedent. She does have a small subungual hematoma but I do not believe she has this trephinated. Patient was given ibuprofen and an ice pack. 2 views of the right ring finger were obtained and show no acute fracture or subluxation. This is on my interpretation. Radiology interprets and agrees. Patient will be given an AlumaFoam splint for home. Work restrictions were given. Return precautions discussed. Impression: 1. Subungual hematoma 2. Right ring finger contusion Lab Data Attestation: I reviewed the patient's lab results. Discharge Plan Triage Chief Complaint: Upper Extremity Injury ED Provider: Zeyad Cervantes Dx/Rx/DC Orders Prescriptions: No Action NK epinephrine [EpiPen] 0.3 mg/0.3 mL auto-injector 0.3 mg IM Q4H PRN (Reason: anaphylaxis) Qty: 2 0RF prednisone 20 mg tablet 40 mg PO DAILY Qty: 10 0RF Primary Care Provider: Care Physician,No Primary Referrals: Care Physician,No Primary [Primary Care Provider] - Print Language: German
--- NOTE | 2023-11-12 10:50 | RAD_ITS ---
STUDY: X-RAY - RIGHT HAND, ATTENTION fourth FINGER REASON FOR EXAM: Female, 28 years old. Crushing injury. TECHNIQUE: 3 view(s) of the finger were obtained. COMPARISON: None. FINDINGS: Normal metacarpal head. Normal metacarpophalangeal joint. Normal proximal phalanx. Normal middle phalanx. Normal distal phalanx. Normal proximal interphalangeal joint. Normal distal interphalangeal joint. Soft tissue swelling. RAD/Finger(s) Min 2 Views IMPRESSION: Soft tissue swelling. No fracture is seen. Electronically Signed: Orlin Thompson MD at 11:09 EDT ,
[2023-11-12 11:49] VITALS: BP 128/80; PULSE 82; RESP 18; TEMP 36.4; O2SAT 99
== END 2023-11-12 11:51 | disposition home or self-care (01) ==
PROVIDERS: Emergency Provider Student in an Organized Health Care Education/Training Program; Visit Provider Student in an Organized Health Care Education/Training Program
DX: S60.041A Contusion of right ring finger without damage to nail, initial encounter (principal); F17.210 Nicotine dependence, cigarettes, uncomplicated; W31.89XA Contact with other specified machinery, initial encounter; Y93.89 Activity, other specified; Y99.0 Civilian activity done for income or pay; Y92.89 Other specified places as the place of occurrence of the external cause
CPT/HCPCS: 73140; 99283

== ENCOUNTER 2024-07-08 10:19 | Emergency (ER) | payer MEDICAID, SELFPAY ==
[2024-07-08 10:19] VITALS: BP 149/111; BP 153/118; PULSE 82; PULSE 85; RESP 16; RESP 18; TEMP 36.2; O2SAT 100; O2SAT 98; BMI 27.2
--- NOTE | 2024-07-08 10:49 | EX.ED.DYSGE1 ---
HPI History of Present Illness Chief Complaint: Other, Pain/Inj PFSH PFSH Medical History Wears glasses Smoker Home Medications ?Medication ?Instructions ?Recorded ?Last Taken ?Type epinephrine 0.3 mg/0.3 mL 0.3 mg (0.3 mL) IM Q4H PRN 04/26/23 Unknown Rx injection, auto-injector (EpiPen) anaphylaxis #2 ea hydrocodone-acetaminophen 5-325mg 1 tab PO Q4H PRN PRN Pain 4 days 07/08/24 Unknown Rx 5mg-325mg #12 TABLETS Allergy/AdvReac Type Severity Reaction Status Date / Time No Known Allergies Allergy Verified 07/08/24 10:20 Family History no significant family his Surgical History History of D&C Social History Smoking Status: Current every day smoker tobacco type: e-cigarettes EXAM Physical Exam Const Vital Signs: 07/08/24 10:19 07/08/24 10:19 Temperature 97.2 F L Temperature Source Temporal Pulse Rate 82 85 Respiratory Rate 18 16 Blood Pressure 153/118 H 149/111 H Blood Pressure Mean 129 123 Pulse Ox 100 98 Oxygen Delivery Method Room Air Room Air Discharge Plan Triage Chief Complaint: Other, Pain/Inj ED Provider: Zana Blakely Dx/Rx/DC Orders Clinical Impression: TMJ (temporomandibular joint syndrome) Instructions: ED TMJ Syndrome Prescriptions: New hydrocodone-acetaminophen 5-325 mg tablet 1 tab PO Q4H PRN PRN (Reason: Pain) 4 Days Qty: 12 0RF No Action epinephrine [EpiPen] 0.3 mg/0.3 mL auto-injector 0.3 mg IM Q4H PRN (Reason: anaphylaxis) Qty: 2 0RF Primary Care Provider: Care Physician,No Primary Referrals: Care Physician,No Primary [Primary Care Provider] - Activity Restrictions/Additional Instructions: Look up a local dentist, manager of change or oral surgeon that treats TMJ and make an appointment. Continue ibuprofen for pain and inflamation. Ice to your jaw. Philo for more severe pain. Print Language: Japanese Disposition Disposition: Home, Self Care
[2024-07-08 10:52] VITALS: BP 145/99; PULSE 85; RESP 16; TEMP 36.2; O2SAT 98
== END 2024-07-08 11:06 | disposition home or self-care (01) ==
LOC: ED 11:04
PROVIDERS: Emergency Provider Emergency Medicine; Visit Provider Emergency Medicine
DX: M26.621 Arthralgia of right temporomandibular joint (principal); F17.290 Nicotine dependence, other tobacco product, uncomplicated
CPT/HCPCS: 99282

== ENCOUNTER 2024-08-21 20:18 | Emergency (ER) | payer MEDICAID, SELFPAY ==
[2024-08-21 20:18] VITALS: BP 128/92; PULSE 95; RESP 18; TEMP 36.8; O2SAT 100; BMI 27.4
--- NOTE | 2024-08-21 20:23 | EDS_ITS ---
HPI History of Present Illness Chief Complaint: Fall [facility] Medical History Wears glasses Smoker Home Medications ?Medication ?Instructions ?Recorded ?Last Taken ?Type epinephrine 0.3 mg/0.3 mL 0.3 mg (0.3 mL) IM Q4H PRN 1 06/27/22 Unknown Rx injection, auto-injector (EpiPen) anaphylaxis #2 ea hydrocodone-acetaminophen 5-325mg 1 tab PO Q4H PRN PRN Pain 4 days 07/08/24 Unknown Rx 5mg-325mg #12 TABLETS Allergy/AdvReac Type Severity Reaction Status Date / Time No Known Allergies Allergy Verified 08/21/24 20:18 Surgical History History of D&C Social History Smoking Status: Current every day smoker tobacco type: e-cigarettes EXAM Physical Exam Const Vital Signs: 08/21/24 20:18 Temperature 98.2 F Temperature Source Oral Pulse Rate 95 Respiratory Rate 18 Blood Pressure 128/92 H Blood Pressure Mean 104 Pulse Ox 100 Oxygen Delivery Method Room Air MDM MDM MDM Narrative Medical decision making narrative: HISTORY OF PRESENT ILLNESS: Chief complaint: Fall 29-year-old female presents after fall. States she fell down 2 steps. She notes right elbow, right ankle and right buttock pain. No head trauma, no loss of consciousness. She notes she was ambulatory after the event. 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 REVIEW OF SYSTEMS: Pertinent positives: Right elbow, right ankle and right buttock pain. Pertinent negatives: Head trauma, loss of consciousness PHYSICAL EXAM: Nursing triage notes reviewed, Vital signs reviewed Primary Survey Airway: Intact Breathing: Bilateral breath sounds Circulation: Palpable bilateral femorals, Palpable bilateral radial, Palpable bilateral DP and Palpable bilateral PT Disability / Spine precautions GCS Score: Eye Openin Verbal Response: 5 Motor Response: 6 Secondary Survey Constitutional: Please see MDM Head: Atraumatic, Midface stable, NO jaw malocclusion, No Cephalohematoma, and No Lacerations noted Eye: Pupils equal round and reactive to light, Extraocular muscles intact and No periorbital ecchymosis or stepoff, no evidence of entrapment ENT: Oropharynx clear, no lacerations, no hemotympanum, no raccoon eyes or wheeler sign Cervical spine / Neck: No cervical spine bony tenderness, crepitance, or stepoff deformity Trachea midline Lungs: Clear to auscultation, No asymmetric rise and No crepitus, no flail chest Cardiac: Regular rate and rhythm and No murmurs Abdomen: Soft, Nontender and No rebound Pelvis: Pelvis stable to compression : No evidence of genital injury Back: No midline bony tenderness to thoracic/lumbar/sacral spines Neuro: intact 5/5 strength with ok sign (median), intact finger abduction (ulnar) intact wrist extension (radial n). Intact sensation in the radial, ulnar, and median nerve distributions. Intact sensation L1-S1 dermatomal distributions. Intact 5/5 strength in hip flexion (T12-L3). Knee extension (L2-L4). Ankle dorsiflexion (L4-L5). Ankle plantar flexion (S1). Great toe extension (L5). 2+ patellar and Achilles DTRs. Extremities: NO gross Deformities, TTP of right elbow, intact flexion extension right elbow. Intact wrist supination pronation. Right hip with full range of motion. No obvious tenderness palpation. Patient is bearing weight fully. She is walking with a nonantalgic gait. Patient right ankle had full range of motion. Was not swollen. No TTP. Psych: Normal affect Nursing triage notes reviewed, Vital signs reviewed MEDICAL DECISION MAKING: Chief Complaint: please see HPI External records reviewed: Reviewed prior imaging studies Factors affecting care: none Social determinants of health: none History obtained from others: none Consults: none MDM Narrative: Patient was initially hemodynamically stable, afebrile and nontoxic-appearing. Exam without obvious deformities. The patient did have TTP over right elbow. Terms of her hip and ankle pain. Patient was bearing weight. She displayed no deformities. She displayed full range of motion. She had no significant tenderness to palpation. I suspect she has any fracture dislocation of the ankle or hip. I considered the following differential diagnosis: Fracture dislocation of right elbow, elbow contusion. I obtained an x-ray. ALL IMAGES (IF OBTAINED) HAVE BEEN PERSONALLY REVIEWED AND INTERPRETED BY MYSELF. X-ray of the right elbow was read reviewed personally myself show no evidence of obvious bony abnormality. Tertiary exam without new traumatic injury. The patient is appropriate discharge home. The patient and/or family, caregivers express understanding. The patient and/or family, caregivers agrees with the plan. Shared decision making: I will have a discussion with the patient and or visitors regarding risk/benefits of further testing or admission. They will be made aware of of the risk/benefits inherent in this decision they will be given the opportunity to voice understanding. Total critical care time today provided was at least 0 [] minutes. This excludes separately billable procedures. Critical care time (if documented) is secondary to the patient having high probability of clinically significant/life threatening deterioration in the patient's condition which required my urgent intervention. Impression: 1. Fall 2. Acute elbow contusion 3. Acute right hip contusion 4. Acute right ankle contusion Dispo: Discharge home This note was generated with avox dictation software. It may contain incorrect words, spelling, and punctuation that were not noted in review of the chart prior to signing. Discharge Plan Triage Chief Complaint: Fall ED Provider: Inderjit De La Fuente Dx/Rx/DC Orders Prescriptions: No Action epinephrine [EpiPen] 0.3 mg/0.3 mL auto-injector 0.3 mg IM Q4H PRN (Reason: anaphylaxis) Qty: 2 0RF hydrocodone-acetaminophen 5-325 mg tablet 1 tab PO Q4H PRN PRN (Reason: Pain) 4 Days Qty: 12 0RF Primary Care Provider: Care Physician,No Primary Referrals: Care Physician,No Primary [Primary Care Provider] - Print Language: Ethiopian
--- NOTE | 2024-08-21 20:50 | RAD_ITS ---
EXAM: RIGHT ELBOW, THREE VIEWS CLINICAL HISTORY: RIGHT ELBOW PAIN. COMPARISON: NO RELEVANT PRIOR. TECHNIQUE: AP, LATERAL, AND OBLIQUE. FINDINGS: No fractures, dislocations, or subluxations. No other osseous abnormalities. Soft tissues are unremarkable. RAD/Elbow min 3 Views IMPRESSION: NORMAL RIGHT ELBOW Reading Location: [facility]
[2024-08-21] MEDS: Acetaminophen 325 MG Tablet 650 MG PO (21:09)
== END 2024-08-21 21:35 | disposition home or self-care (01) ==
PROVIDERS: Emergency Provider Emergency Medicine; Visit Provider Emergency Medicine
DX: S70.01XA Contusion of right hip, initial encounter (principal); S90.01XA Contusion of right ankle, initial encounter; W10.9XXA Fall (on) (from) unspecified stairs and steps, initial encounter; F17.290 Nicotine dependence, other tobacco product, uncomplicated; S50.01XA Contusion of right elbow, initial encounter
CPT/HCPCS: 73080; 99282

== ENCOUNTER 2024-12-24 08:48 | Observation (INO) | payer MEDICAID, SELFPAY ==
[2024-12-24] VITALS (7 sets, daily range): BP systolic 98–137; BP diastolic 59–72; PULSE 78–114; RESP 14–18; TEMP 36.6–37.7; O2SAT 97–100; BMI 27.3; BMI 27.2
[2024-12-24] MEDS: 0.9% Normal Saline (1000mL) 1,000 ML 999 ML IV ×2 (09:09→11:00)
--- NOTE | 2024-12-24 09:14 | EDS_ITS ---
HPI History of Present Illness Chief Complaint: Abd Pain Narrative Narrative: Patient is a 29-year-old female who presented to the emergency department chief complaint of abdominal pain. Patient states that she has had pain for the last 4 days and notes that she went to urgent care today. States that they were concerned that she has appendicitis therefore they sent her here to be further evaluated. Patient denies any sick contacts. States that she vomited yesterday secondary to the pain but has not vomited since. PFSH PFSH Medical History Wears glasses Smoker Home Medications ?Medication ?Instructions ?Recorded ?Last Taken ?Type epinephrine 0.3 mg/0.3 mL 0.3 mg (0.3 mL) IM Q4H PRN 1 06/27/22 Unknown Rx injection, auto-injector (EpiPen) anaphylaxis #2 ea Allergy/AdvReac Type Severity Reaction Status Date / Time No Known Allergies Allergy Verified 12/24/24 08:48 Surgical History History of D&C Social History Smoking Status: Current every day smoker tobacco type: e-cigarettes ROS ROS ED ROS Narrative Constitutional: Denies any fevers, chills Abdomen: Complains of abdominal pain as noted above denies vomiting or diarrhea currently : Denies any urinary symptoms Neurological: Denies any numbness, weeks, tingling Musculoskeletal: Complains of back pain Skin: Denies any rashes or lesions EXAM Physical Exam Narrative Exam Narrative: General: Patient was lying in bed did appear to be uncomfortable secondary to her abdominal pain Head: Atraumatic, normocephalic Eyes: PERRL bilaterally, EOMI bilaterally, no conjunctival injection noted Neck: Soft, supple, trachea midline Cardiovascular: Patient tachycardic with a regular rhythm Respiratory: Clear to auscultation bilaterally Abdomen: Soft, nondistended, tender to palpation in the right lower quadrant no rebound or guarding on exam Extremities: +5/5 strength noted in the bilateral upper and lower extremities Neurological: Patient following commands and that she was at [facility] years 2024 Skin: Warm, dry, intact no rashes lesions noted Const Vital Signs: 12/24/24 08:49 12/24/24 11:59 Temperature 98.9 F Temperature Source Oral Pulse Rate 114 H 102 H Respiratory Rate 14 18 Blood Pressure 137/71 H 105/72 Blood Pressure Mean 93 83 Pulse Ox 100 99 Oxygen Delivery Method Room Air Room Air MDM MDM MDM Narrative Medical decision making narrative: Patient is a 29-year-old female who presents to the emergency department chief complaint of abdominal pain. On the differential diagnose includes but not limited to pyelonephritis, UTI, appendicitis, cholecystitis. Once the workup is obtained reviewed she will be reevaluated Patient's CBC was reviewed showed a leukocytosis of 16,000, hemoglobin is 12.5, platelet count of 228. Patient sodium was 135, potassium normal 3.8, creatinine was 0.76. Patient's AST and ALT were 18 and 19 respectively. Patient's lipase normal at 15 Prax test negative, urinalysis was significant for a urinary tract infection with positive nitrates 500 leukocyte esterase greater than 100 white cells with 1+ bacteria. Patient CT abdomen pelvis with IV contrast reviewed and showed findings consistent with pyelonephritis and proximal ureteritis of the right kidney no discrete abscess. Hyperdensity within the proximal right ureter which may be secondary to infection no discrete nephrolithiasis. Given there is no urology on-call here at [place] I called [facility] spoke with Dr. Melgoza and he states that the patient does not require transfer there is nothing for urology to do she just needs admitted to the medicine service and given IV antibiotics. Will discuss case with hospitalist here for admission for IV antibiotics. Discussed case with hospitalist Dr. Michel who accept patient for admission. Patient notified she is agreeable this plan all question concerns answered. Patient was requesting pain medication and she spiked a fever therefore should be given a gram of Tylenol as well as morphine Zofran. Lab Data Labs: Laboratory Results - last 24 hr 12/24/24 09:15 WBC 16.8 H RBC 4.30 Hgb 12.5 Hct 37.6 MCV 87.4 MCH 29.1 MCHC 33.2 RDW Std Deviation 42.5 RDW Coeff of Jazmine 13.3 Plt Count 228 MPV 9.2 Immature Gran % (Auto) 0.500 Neut % (Auto) 75.1 H Lymph % (Auto) 10.2 L [place] % (Auto) 13.5 H Eos % (Auto) 0.2 Baso % (Auto) 0.5 Absolute Neuts (auto) 12.6 H Absolute Lymphs (auto) 1.72 Nucleated RBC % 0 Sodium 135 Potassium 3.8 Chloride 102 Carbon Dioxide 21.5 Anion Gap 12 BUN 9 Creatinine 0.76 Estim Creat Clear Calc 112.41 Est GFR (MDRD) Non-Af 111 BUN/Creatinine Ratio 12.2 Glucose 101 H Calcium 8.5 Total Bilirubin 0.85 AST 18 ALT 19 Alkaline Phosphatase 78 Total Protein 7.1 Albumin 3.8 Globulin 3.3 Albumin/Globulin Ratio 1.2 Lipase 15 Serum , Qual NEGATIVE Urine Color Yellow Urine Clarity Sl. Cloudy Urine pH 6.0 Ur Specific [place] 1.010 Urine Protein 30 H Urine Glucose (UA) Normal Urine Ketones 50 H Urine Occult Blood 150 H Urine Nitrite Positive H Urine Bilirubin Negative Urine Urobilinogen Normal Ur Leukocyte Esterase 500 H Urine RBC 0 SEEN Urine WBC >100 SEEN Ur Squamous Epith Cells 0 SEEN Urine Bacteria 1+ Urine Mucus 0 SEEN Radiography Diagnostic Testing: Clinical Impression(s) from Imaging Studies Abdomen/Pelvis CT 12/24/24 09:16 IMPRESSION: 1. Pyelonephritis and proximal ureteritis of the right kidney. No discrete abscess. 2. Hyperdensity within the proximal right ureter, which may be secondary to infection. No discrete nephrolithiasis. Reading Location: [id number] Discharge Plan Triage Chief Complaint: Abd Pain ED Provider: Pal Hathaway Dx/Rx/DC Orders Clinical Impression: UTI (urinary tract infection), Pyelonephritis Prescriptions: No Action epinephrine [EpiPen] 0.3 mg/0.3 mL auto-injector 0.3 mg IM Q4H PRN (Reason: anaphylaxis) Qty: 2 0RF Primary Care Provider: Care Physician,No Primary Referrals: Care Physician,No Primary [Primary Care Provider] - Print Language: Kyrgyz Disposition Disposition: [facility]
--- NOTE | 2024-12-24 09:16 | CT_ITS ---
PROCEDURE: ABDOMEN/PELVIS W IV CONT ONLY 12/24/2024 REASON FOR EXAM: RLQ PAIN TECHNIQUE: ABDOMEN/PELVIS W IV CONT ONLY Coronal and Sagittal reconstruction series were provided. CONTRAST: Isovue 370 VOLUME: 100 mL One or more dose reduction techniques were used (e.g., Automated exposure control, adjustment of the mA and/or kV according to patient size, use of iterative reconstruction technique. RADIATION DOSE SUMMARY: DLP: 900 mGycm COMPARISON: CT abdomen pelvis 03/13/2018. FINDINGS: Lung bases: Right lower lobe atelectasis. Liver: The liver is normal in size without suspicious hepatic mass. The major portal veins are patent. No biliary ductal dilation. Gallbladder: No radiopaque stones within the gallbladder. Spleen: Unremarkable. Pancreas: Unremarkable. Adrenals: No adrenal mass. Kidneys: Several areas of wedge-shaped hypoenhancement throughout the right kidney, with cortical and perinephric edema. Additional hyperenhancement of the proximal right ureter. No obvious nephrolithiasis, however there is increased density within the proximal right ureter (series 2, images 58-61). The left kidney is unremarkable. Bladder: Distended and unremarkable. Reproductive Organs: Mildly enlarged, globular uterus. Left corpus luteum. Trace pelvic ascites. Bowel: The bowel loops are nondilated. No abdominal ascites or free air. Normal appendix. Lymph nodes: Prominent retroperitoneal nodes, likely reactive. Vasculature: The abdominal aorta and IVC are normal. Bones: No aggressive osseous lesions. CT/Abdomen/Pelvis W IV Cont ONLY IMPRESSION: 1. Pyelonephritis and proximal ureteritis of the right kidney. No discrete abs cess. 2. Hyperdensity within the proximal right ureter, which may be secondary to inf ection. No discrete nephrolithiasis. Reading Location: [id number]
--- OUTSIDE RECORDS SUMMARY | 2024-12-24 09:22 | XMS RPT_ITS | CCD ---
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 clotrimazole-betametha sone (LOTRISONE) cream Apply 1 application to affected area two times a day. hydrOXYzine HCl (ATARAX) 25 mg tablet Take 1 tablet by mouth three times a day as needed. (Patient not taking: Reported on 05/24/2024) FAMILY HISTORY Problem Relation Age of Onset other (anxiety) Mother Psychiatry Father bipolar No Known Problems Sister No Known Problems Sister other (ADHD) Sister other (ADHD) Brother No Known Problems Brother No Known Problems Brother COPD Maternal Grandmother Psychiatry Maternal Grandfather No Known Problems Paternal Grandmother No Known Problems Paternal Grandfather Cancer Maternal Aunt No Known Problems Daughter No Known Problems Daughter Social History Tobacco Use Smoking status: Every Day Types: Cigarettes Smokeless tobacco: Never Tobacco comments: 2 cigarettes a day Vaping Use Vaping status: Never Used Substance Use Topics Alcohol use: Not Currently Drug use: Never BP 110/72 Pulse 79 Temp 36.8 ?C (98.3 ?F) (Tympanic) Resp 16 Wt 75.3 kg (166 lb 0.1 oz) LMP 01/20/2024 SpO2 98% BMI 27.20 kg/m? Review of Systems Constitutional: Negative for chills, fever and malaise/fatigue. HENT: Positive for ear pain. Negative for congestion, ear discharge, sinus pain and sore throat. Eyes: Negative for blurred vision, pain, discharge and redness. Respiratory: Negative for cough, hemoptysis, sputum production, shortness of breath, wheezing and stridor. Cardiovascular: Negative for chest pain. Gastrointestinal: Negative for abdominal pain, diarrhea, nausea and vomiting. Musculoskeletal: Negative for myalgias. Skin: Negative for itching and rash. Neurological: Negative for dizziness and headaches. Objective Physical Exam Constitutional: General: She is not in acute distress. Appearance: She is not diaphoretic. HENT: Head: Normocephalic. Jaw: Pain on movement present. No trismus, tenderness or swelling. Comments: Pain with palpation over TMJ. Clicking noted. Right Ear: Tympanic membrane, ear canal and external ear normal. Left Ear: Tympanic membrane, ear canal and external ear normal. Mouth/Throat: Mouth: Mucous membranes are moist. Pharynx: Oropharynx is clear. Uvula midline. No pharyngeal swelling, oropharyngeal exudate, posterior oropharyngeal erythema or uvula swelling. Eyes: Conjunctiva/sclera: Conjunctivae normal. Pupils: Pupils are equal, round, and reactive to light. Cardiovascular: Rate and Rhythm: Normal rate and regular rhythm. Heart sounds: Normal heart sounds. Pulmonary: Effort: Pulmonary effort is normal. No tachypnea, accessory muscle usage or respiratory distress. Breath sounds: Normal breath sounds. No stridor. No wheezing, rhonchi or rales. Abdominal: General: There is no distension. Palpations: Abdomen is soft. Tenderness: There is no abdominal tenderness. There is no guarding or rebound. Musculoskeletal: Cervical back: Normal range of motion and neck supple. No edema, erythema, rigidity or tenderness. No pain with movement. Normal range of motion. Lymphadenopathy: Cervical: No cervical adenopathy. Skin: General: Skin is warm and dry. Neurological: Mental Status: She is alert and oriented to person, place, and time. ASSESSMENT/PLAN: 1. 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 No evidence of infection. Referred to dentistry. Patient was educated on supportive therapies. Patient will follow up with primary care provider as needed. Patient was instructed to immedi (more content not included)... Normal [facility] CNOVon 03-08-2024 CNOV Office Visit (UCWSTR ) LAURIE CHRISTIE Antonio ([id number]) 1995 F Date Time Provider Department 03/08/24 10:45 AM GAGANDEEP FERREIRA [facility] During your visit today, we recorded the following information about you: Temperature Pulse Respiration Blood pressure 96.9 degrees 78/minute 16/minute 104/60 Weight 77.9 kg Gagandeep Ferreira APRN.OLERICULTURIST 03/08/2024 11:33 AM Signed Subjective HPI Nontoxic female presents urgent care complaint back pain nausea headache. Additionally has had pruritus for greater than 2 months. Presents today for evaluation. No OTC medication use. Denies any fever or vomiting. No recent medication changes antibiotic use. Past medical history prescription medications allergies reviewed. .Patient presents with: Low Back Pain: nausea x this am and headache x 3 days PAST MEDICAL HISTORY Diagnosis Date Anemia in 07/30/2015 Gestational hypertension Menarche 2007 Age [age] Mental disorder Anxiety Attacks PMH - PAST MEDICAL HISTORY OF 03/2007 normal color vision PAST SURGICAL HISTORY Procedure Laterality Date DANOR (INCOMPLETE AB), ANY TRIMESTER [id number]/29/2019 SALPINGECTOMY Bilateral 08/30/2021 laparoscopic ALLERGIES Patient has no known allergies. MEDICATIONS clotrimazole-betametha sone (LOTRISONE) cream Apply 1 application to affected area two times a day. (Patient not taking: Reported on 03/08/2024) FAMILY HISTORY Problem Relation Age of Onset other (anxiety) Mother Psychiatry Father bipolar No Known Problems Sister No Known Problems Sister other (ADHD) Sister other (ADHD) Brother No Known Problems Brother No Known Problems Brother COPD Maternal Grandmother Psychiatry Maternal Grandfather No Known Problems Paternal Grandmother No Known Problems Paternal Grandfather Cancer Maternal Aunt No Known Problems Daughter No Known Problems Daughter Social History Tobacco Use Smoking status: Every Day Types: Cigarettes Smokeless tobacco: Never Tobacco comments: 2 cigarettes a day Vaping Use Vaping status: Never Used Substance Use Topics Alcohol use: Not Currently Drug use: Never BP 104/60 Pulse 78 Temp 36.1 ?C (96.9 ?F) Resp 16 Wt 77.9 kg (171 lb 11.8 oz) LMP 01/20/2024 SpO2 100% BMI 28.14 kg/m? Review of Systems Constitutional: Negative for chills, fever and malaise/fatigue. HENT: Negative for congestion, ear discharge, ear pain, sinus pain and sore throat. Eyes: Negative for blurred vision, pain, discharge and redness. Respiratory: Negative for cough, hemoptysis, sputum production, shortness of breath, wheezing and stridor. Cardiovascular: Negative for chest pain. Gastrointestinal: Positive for nausea. Negative for abdominal pain, diarrhea and vomiting. Genitourinary: Negative. Musculoskeletal: Positive for back pain. Negative for myalgias. Skin: Positive for itching and rash. Neurological: Positive for headaches. Negative for dizziness. Objective Physical Exam Constitutional: General: She is not in acute distress. Appearance: She is not diaphoretic. HENT: Head: Normocephalic. Jaw: No trismus, tenderness, swelling or pain on movement. Mouth/Throat: Mouth: Mucous membranes are moist. Pharynx: Oropharynx is clear. Uvula midline. No pharyngeal swelling, oropharyngeal exudate, posterior oropharyngeal erythema or uvula swelling. Eyes: Conjunctiva/sclera: Conjunctivae normal. Pupils: Pupils are equal, round, and reactive to light. Cardiovascular: Rate and Rhythm: Normal rate and regular rhythm. Heart sounds: Normal heart sounds. Pulmonary: Effort: Pulmonary effort is normal. No tachypnea, accessory muscle usage or respiratory distress. Breath sounds: Normal breath sounds. No stridor. No wheezing, rhonchi or rales. Abdominal: General: There is no distension. Palpations: Abdomen is soft. Tenderness: There is no abdominal tenderness. There is no guarding or rebound. Musculoskeletal: Cervical back: Normal range of motion and neck supple. No edema, erythema, rigidity or tenderness. No pain with movement. Normal range of motion. Thoracic back: Normal. Lumbar back: Normal. Lymphadenopathy: Cervical: No cervical adenopathy. Skin: General: Skin is warm and dry. Comments: Some areas of excoriation noted on abdomen upper legs. No remote redness or drainage. No evidence of infection. Neurological: Mental Status: She is alert and oriented to person, place, and time. ASSESSMENT/PLAN: 1. Acute midline low back pain without sciatica - ICD9: 724.2, ICD10: M54.50 (primary diagnosis) - UA DIP, URINE (POC) 2. Rash - ICD9: 782.1, ICD10: R21 Urine dip negative. Treat as muscle skeletal back pain. Additionally diagnosed with rash. Use steroid cream as instructed. Atarax use as needed. Follow-up with dermatology. Patient was educated on supportive therapies. Patient will f (more content not included)... Normal [facility] UA DIP, URINE (POC)on 2023 BILIRUBIN UA (POCT) Negative Negative [facility] CLARITY UA (POCT) Clear [facility] COLOR UA (POCT) Dark [facility] GLUCOSE UA (POCT) Negative Negative mg/dL Manpreet veland [facility] Hemoglobin Ql (U) Negative [facility] KETONE UA (POCT) Negative Negative mg/dL [facility] LEUKOCYTES UA (POCT) Negative Negative [facility] NITRITE UA (POCT) Negative Negative [facility] PH UA (POCT) 7.0 4.5 - 8.0 [facility] Protein Ql (U) Negative Negative mg/dL [facility] SPECIFIC GRAVITY UA (POCT) 1.020 1.005 - 1.030 [facility] UROBILINOGEN UA (POCT) 0.2 Normal E.U./dL [facility] Location:[facility], [address] [place] [address], [place], [place], [id number] [place] [address] POINT OF CARE [facility] US Pelvison 02-23-2024 Indication pelvic pain, Abnormal uterine bleeding, Dysfunctional uterine bleeding, Dyspareunia Impression The uterus is retroverted and measures 77 mm x 42 mm x 58 mm. The endometrial thickness is 4.6 mm. There a few scattered fine calcifications in the fundal endometrium and adjacent myometrium. The right ovary measures 34 mm x 20 mm x 18 mm. The left ovary measures 34 mm x 25 mm x 20 mm. There is no free fluid visualized. Recommendations Corellate clinically. Menstrual History LMP on 02/17/2024. Cycle: regular cycle. Contraception: tubal sterilization Method Transabdominal, transvaginal, 3D ultrasound examination, Color Doppler examination. View: Adequate visualization Uterus Uterus: Visualized Uterus position: retroverted Description of uterine malformations: none Myometrium: normal Endometrium: normal echogenicity, several small calcifications at the fundal endometrial myometrial junction Cervix details: normal Uterus length 77 mm Uterus width 58 mm Uterus height 42 mm Uterus Vol 99.1 cm Endometrial thickness, total 4.6 mm Fibroids: No fibroids identified Polyps: No polyps identified Right Ovary Rt ovary: Visualized Rt ovary morphology: premenopausal normal follicular Rt ovary D1 34 mm Rt ovary D2 20 mm Rt ovary D3 18 mm Rt ovary Vol 6.4 cm Rt ovarian cyst(s): No cysts identified Left Ovary Lt ovary: Visualized Lt ovary morphology: premenopausal normal follicular Lt ovary D1 34 mm Lt ovary D2 25 mm Lt ovary D3 20 mm Lt ovary Vol 8.7 cm Lt ovarian cyst(s): No cysts identified Cul de Sac Visualized. no free fluid visualized Performed By: Xin Deluna RDMS Read By: Gee Martel M.D. MATERNAL MEDICINE [facility] Radiology Study observation (narrative) [facility] BACTERIAL VAGINOSIS NAATon 0 01-20-2024 Lactobacillus crispatus+gasseri+chace senii + Gardnerella vaginalis + Atopobium vaginae rRNA DORITA+probe Ql (Vag fld) Negative Normal Negative for bacterial vaginosis [facility] Comment on above: Order Comment: Speci men Type: SWABOrdering Facility: [facility] Address: [address] [place] [address] Performed By: #### B VAMP, [id number] ####[facility] LABCLIA [id number] [place] [address] [place] C. trachomatis+N. gonorrhoea e DNA DORITA+probe Ql (Unsp spec)on 01-20-2024 C. trachomatis rRNA DORITA+probe Ql (Unsp spec) Negative Normal Negative for Chlamydia trachomatis by amplificaton [facility] Comment on above: Order Comment: Speci men Type: SWABOrdering Facility: [facility] Address: [address] [place] [address] Performed By: #### B VAMP, [id number] ####[facility] LABCLIA [id number] [place] [address] [place] N. gonorrhoeae rRNA DORITA+probe Ql (Unsp spec) Negative Normal Negative for Neisseria gonorrhoeae by amplification [facility] Comment on above: Order Comment: Speci men Type: SWABOrdering Facility: [facility] Address: [address] [place] [address] Performed By: #### B VAMP, [id number] ####[facility] LABCLIA [id number] [place] [address] [place] LISA/TRICHOMONAS NAATon 0 01-20-2024 C. glabrata RNA DORITA+probe Ql (Vag fld) Negative Normal Negative for Lisa glabrata [facility] Comment on above: Order Comment: Speci men Type: SWABOrdering Facility: [facility] Address: [address] [place] [address] Performed By: #### C VTV ####[facility] LABIA [id number] [address] [place] Lisa sp DNA DORITA+probe Ql (Vag fld) Negative Normal Negative for Lisa species [facility] Comment on above: Order Comment: Speci men Type: SWABOrdering Facility: [facility] Address: [address] [place] [address] Performed By: #### C VTV ####[facility] LABCLIA [id number] [address] [place] T. vaginalis DNA DORITA+probe Ql (Unsp spec) Negative Normal Negative for Trichomonas vaginalis by amplification [facility] Comment on above: Order Comment: Speci men Type: SWABOrdering Facility: [facility] Address: [address] [place] [address] Performed By: #### C VTV ####[facility] LABIA [id number] [address] [place] CNOVon 01-20-2024 CNOV Office Visit (OBGYWM ) LAURIE CHRISTIE ([id number]) 1995 F Date Time Provider Department 01/20/24 8:40 AM [facility] DREW OBGYWM During your visit today, we recorded the following information about you: Blood pressure Weight Height Last Period 122/78 80.7 kg 1.664 m 01/20/24 Luh Drew MD 01/20/2024 9:33 AM Signed Flag Maker offered: Patient declinesReza Eason is a 28 year old who presents for an annual gynecologic exam with complaints, c/o itching and discharge- clear and tinted white started 3-4 months ago. Pt reports no new sexual partners- not sure if is faithful. No odor, but is itching. No h/o stds no changes in soaps or detergents, no fever, no pain on urination. Pt reports last month menses was late, menses more painful recently , external irritation on vaginal near clitoris per patient. Menses: cycles every 28-30 days and 3-4 days of flow. Contraception: tubal sterilization HPV vaccine: No Last Pap: 07/23/2021 normal HPV: N/A History of abnormal pap: No Last mammogram: never Sexually active: Yes History of STDS: None Pain with intercourse: No Postcoital bleeding: No Exercise: walking Diet: balanced OB History T3 L3 SAB0 IAB0 Ectopic0 Multiple0 Live Births3 Behavioral Health Clinician History LMP: 01/20/2024, Having periods Age at Menarche: Age at First : Age at Menopause: Behavioral Health Clinician History Comments: Sexual Activity: Yes; Male Contraception: Tubal Ligation PAST MEDICAL HISTORY 07/30/2015: Anemia in No date: Gestational hypertension 2009: Menarche Comment: Age [age] No date: Mental disorder Comment: Anxiety Attacks 03/2007: PMH - PAST MEDICAL HISTORY OF Comment: normal color visionPAST SURGICAL HISTORY [id number]/29/2019: DANDC (INCOMPLETE AB), ANY TRIMESTER 08/30/2021: SALPINGECTOMY; Bilateral Comment: laparoscopic FAMILY HISTORY Problem Relation Age of Onset other (anxiety) Mother Psychiatry Father bipolar No Known Problems Sister No Known Problems Sister other (ADHD) Sister other (ADHD) Brother No Known Problems Brother No Known Problems Brother COPD Maternal Grandmother Psychiatry Maternal Grandfather No Known Problems Paternal Grandmother No Known Problems Paternal Grandfather Cancer Maternal Aunt No Known Problems Daughter No Known Problems Daughter SOCIAL HISTORY Social History Tobacco Use Smoking status: Every Day Types: Cigarettes Smokeless tobacco: Never Tobacco comments: 2 cigarettes a day Vaping Use Vaping status: Never Used Substance Use Topics Alcohol use: Not Currently Drug use: Never REVIEW OF SYSTEMS Abdomen: No abdominal pain, nausea, vomiting, diarrhea, or constipation. No bloating, early satiety, indigestion, or increased flatulence. Bladder: No dysuria, gross hematuria, urinary frequency, urinary urgency, or incontinence. Breast: No breast lumps, nipple d/c, overlying skin changes, redness or skin retraction. Allergies and current medication updated:Yes EXAM: Ht 5' 5.5 (1.66m) Wt 178 lb (80.7kg) LMP 01/20/2024 BMI 29.16 kg/(m2). GENERAL: pleasant, female in no apparent distress HEENT: Normocephalic, atraumatic, mucus membranes moist, and no lesions NECK: Supple, full range of motion, no adenopathy, and thyroid normal DERMATOLOGY: Normal, without lesions, non-icteric, and non-hirsute BREAST: soft, non-tender, symmetric, no dominant mass, normal nipple-areolar complex, no lymphadenopathy, and no nipple discharge ABDOMEN: soft, non-tender, and no masses PELVIC: external genitalia normal, normal Bartholin's glands, urethra, [place]'s glands, no vulvar lesions, no cervical lesions, good vaginal support, physiologic discharge present, normal appearing perineal body and perianal region BIMANUAL: uterus normal size, shape and consistency, ? Fullness in right adnexa, and tender in right RECTOVAGINAL: deferred. NEURO: alert and oriented x3,exam grossly non-focal EXTREMITIES: normal ASSESSMENT/PLAN: (Z01.419) Encounter for gynecological examination (general) (routine) without abnormal findings (primary encounter diagnosis) (Z12.4) Screening for cervical cancer (Z11.3) Screen for STD (sexually transmitted disease) (Z23) Need for prophylactic vaccination/inoculatio n against viral disease (N94.6) Dysmenorrhea (R10.2) Pelvic pain in female (N93.9) Abnormal uterine bleeding (AUB) 1) Health maintenance: Pap done with reflex HPV. Mammogram starting age 40. Nutrition, exercise and routine health maintenance exams reviewed. HPV vaccine: ordered 2) Contraception: tubal sterilization. Contraceptive options reviewed and information provided. 3) STD screening: Accepted STD check for Gonorrhea and Chlamydia. BV/yeast/trich 4) Follow up one year or sooner as needed 5) pelvic us 6) lotrisone ordered for external irritaiton M (more content not included)... Normal [facility] PAP TESTon 01-20-2024 ADEQUACY Satisfactory for interpretation. Normal [facility] Comment on above: Order Comment: Speci men Type: FLUID SPECIMENOrdering Facility: [facility] Address: [address] [place] [address] Performed By: #### L [id number] ####[facility]ORY[facility] [id number] [address] LABCLIA [id number] [address] [place] CASE REPORT Normal [facility] Comment on above: Order Comment: Speci men Type: FLUID SPECIMENOrdering Facility: [facility] Address: [address] [place] [address] Result Comment: Gyne cologic Cytology Report Case: [id number] Authorizing Provider: Luh Drew, Collected: 01/20/2024 08:51 AM Ordering Location: OB/Gynecology Received: 01/20/2024 12:26 PM First Screen: Barker, Angle, CT, ASCP Specimen: Pap Test, ThinPrep, Cervix Performed By: #### L [id number] ####[facility]ORY[facility] [id number] [address] OF [facility] LABCLIA [id number] [address] [place] CLINICAL HISTORY, CYTOLOGY, SCREEN PRINTING MACHINE OPERATOR Routine Exam Normal [facility] Comment on above: Order Comment: Speci men Type: FLUID SPECIMENOrdering Facility: [facility] Address: [address] [place], [place] [address] Performed By: #### L [id number] ####[facility] [id number] [address] LABCLIA [id number] [place] [address] [place] FINAL PERFORMING LAB Normal [facility] Comment on above: Order Comment: Speci men Type: FLUID SPECIMENOrdering Facility: [facility] Address: [address] [place] [address] Result Comment: Tech nical component, sales secretary screening performed at [facility], [address], [place] [address] CLIA# [id number] Diagnostic interpretation performed at [facility], [address], [place] [address] CLIA# [id number] Msw: Darline Blake M.D. Performed By: #### L [id number] ####[facility] LABORATORYCLIA [id number] [address] LABCLIA [id number] [place] [address] [place] HPV REFLEX HPV if Atypical Normal [facility] Comment on above: Order Comment: Speci men Type: FLUID SPECIMENOrdering Facility: [facility] Address: [address] [place] [address] Performed By: #### L [id number] ####[facility] LABORATORYCLIA [id number] [place] [address] [place] [facility] LABCLIA [id number] [place] [address] [place] INTERPRETATION, CYTOLOGY, SCREEN PRINTING MACHINE OPERATOR Normal [facility] Comment on above: Order Comment: Speci men Type: FLUID SPECIMENOrdering Facility: [facility] Address: [address] [place] [address] Result Comment: Nega tive for intraepithelial lesion or malignancy. Performed By: #### L [id number] ####[facility] [id number] [address] LABCLIA [id number] [place] [address] [place] LMP 01/20/2024 Normal [facility] Comment on above: Order Comment: Speci men Type: FLUID SPECIMENOrdering Facility: [facility] Address: [address] [place] [address] Performed By: #### L [id number] ####[facility] [id number] [address] LABCLIA [id number] [place] [address] [place] PAP DISCLAIMER COMMENT The Pap Smear is a screening test for cervical cancer. False negative results occur with all screening tests, emphasizing the need for rescreening at recommended intervals, and clinical correlation. Normal [facility] Comment on above: Order Comment: Speci men Type: FLUID SPECIMENOrdering Facility: [facility] Address: [address] [place] [address] Performed By: #### L [id number] ####[facility] [id number] [address] LABCLIA [id number] [place] [address] [place] PAP PUBLICATION DISTRIBUTOR COMMENT This specimen has be en analyzed by the ThinPrep Imaging System, an automated imaging and review system, which assists the laboratory in evaluating cells on ThinPrep Pap tests. Following automated imaging, selected red from every slide are reviewed by a sales secretary. Normal [facility] Comment on above: Order Comment: Speci men Type: FLUID SPECIMENOrdering Facility: [facility] Address: [address] [place] [address] Performed By: #### L [id number] ####[facility]ORY[facility]IA [id number] [place] [id number] [place] OF [facility] LABCLIA [id number] RASHIDAKaran [facility] [id number] [place], [place] [id number] [place] Emergency Department Summary on 11-12-2023 Emergency Department Summary [facility] Medical Records Department [address] [place] [address] Emergency Department Summary 11/12/23 MR#: [id number] Acct: [id number] Name: LAURIE CHRISTIE Rep #: [id number] : 1995 28 From: Zeyad Cervatnes DO PCP: Care Physician,No Primary Status:REG ER Location: ED HPI History of Present Illness Chief Complaint: Upper Extremity Injury Narrative Narrative: 28-year-old female presenting with right ring finger pain. She states she was using a screen press at work and is clamped down on her right ring finger. She states she pulled it out quickly. She notes some bleeding around the lateral aspect of the nail and a subungual hematoma which is very small at the medial aspect. She states is painful and she is concerned about broken. She is able to move all joints on her right ring finger without difficulty. No deformity. PFSH PFS Medical History Wears glasses Smoker Home Medications ???Medication ???Instructions ???Recorded ???Last Taken ???Type NK 04/26/23 Unknown History epinephrine 0.3 mg/0.3 mL 0.3 mg (0.3 mL) IM Q4H PRN 04/26/23 Unknown Rx injection, auto-injector (EpiPen) anaphylaxis #2 ea prednisone 20 mg tablet 40 mg (2 x 20 mg) PO DAILY #10 04/26/23 Unknown Rx TABLETS Allergy/AdvReac Type Severity Reaction Status Date / Time No Known Allergies Allergy Verified 11/12/23 08:46 Surgical History History of D C Social History Smoking Status: Current every day smoker tobacco type: e-cigarettes ROS ROS ED Constitutional Constitutional ED: Denies chills, fever(s) or sweats Eyes Eyes: Denies blurry vision or change in vision ENT ENT ED: Denies ear pain or sore throat Cardiovascular Cardiovascular: Denies chest pain, palpitations or racing heartbeat Respiratory/Chest Respiratory/Chest: Denies cough, dyspnea or sputum Gastrointestinal Gastrointestinal: Denies abdominal pain, constipation, diarrhea, nausea or vomiting Genitourinary Genitourinary ED: Denies dysuria, hematuria or urinary frequency Musculoskeletal Musculoskeletal: Denies arthralgias, myalgias or neck pain Integumentary Reports other Details: Right ring finger pain, subungual hematoma ; Denies abscess, Abrasions or rash Neurologic Neurologic: Denies headache(s), paresthesias or weakness Psychiatric Psychiatric: Denies anxiety, depression, suicidal ideation or suicidal thoughts Endocrine Endocrinology: Denies polydipsia or polyuria EXAM Physical Exam Const Vital Signs: 11/12/23 08:46 Temperature 97.6 F L Temperature Source Temporal Pulse Rate 80 Respiratory Rate 16 Blood Pressure 146/103 H Blood Pressure Mean 117 Pulse Ox 99 Oxygen Delivery Method Room Air Positive well nourished General Appearance ED: NAD HEENT Reports moist mucous membranes normocephalic and atraumatic Resp normal respiratory effort Cardio regular rate Neuro oriented x3 and CN's II-XII intact bilaterally Sensorium / Orientation: alert Skin Skin Narrative: Right ring finger neurovascular intact. No deformities. Able to range all joints without difficulty. There is a very small subungual hematoma at the medial aspect of the base. There is also some bleeding at the lateral aspect along the side of the nail. The nail is in place. MDM MDM MDM Narrative Medical decision making narrative: Patient presenting with finger pain. Apparently this was screen precedent. She does have a small subungual hematoma but I do not believe she has this trephinated. Patient was given ibuprofen and an ice pack. 2 views of the right ring finger were obtained and show no acute fracture or subluxation. This is on my interpretation. Radiology interprets and agrees. Patient will be given an AlumaFoam splint for home. Work restrictions were given. Return precautions discussed. Impression: 1. Subungual hematoma 2. Right ring finger contusion Lab Data Attestation: I reviewed the patient's lab results. Discharge Plan Triage Chief Complaint: Upper Extremity Injury ED Provider: Zeyad Cervantes Dx/Rx/DC Orders Prescriptions: No Action NK epinephrine [EpiPen] 0.3 mg/0.3 mL auto-injector 0.3 mg IM Q4H PRN (Reason: anaphylaxis) Qty: 2 0RF prednisone 20 mg tablet 40 mg PO DAILY Qty: 10 0RF Primary Care Provider: Care Physician,No Primary Referrals: Care Physician,No Primary [Primary Care Provider] - Print Language: Fijian What to do if you have Problems For any increased pain, shortness of breath, bleeding, nausea or vomiting, chest pain, or any unexpected problems, contact your Primary Care Provider. Call [facility] ([phone]) or report to the closest Emergency Room. Call 911 if (more content not included)... Normal [facility] Finger(s) Min 2 Viewson 10-24 0-2023 Finger(s) Min 2 Views [facility] [address], [place] [id number] Finger(s) Min 2 Views MR#: [id number] Acct: [id number] Name: LAURIE CHRISTIE Rep #: [id number] : 1995 F 28 From: Orlin cifuentes MD PCP: Care Physician,No Primary Status: REG ER Study: Finger(s) Min 2 Views Date of Exam: 11/12/23 Exam# [id number] Ordering Dr: Zeyad Cervantes DO [id number] STUDY: X-RAY - RIGHT HAND, ATTENTION fourth FINGER REASON FOR EXAM: Female, 28 years old. Crushing injury. TECHNIQUE: 3 view(s) of the finger were obtained. COMPARISON: None. FINDINGS: Normal metacarpal head. Normal metacarpophalangeal joint. Normal proximal phalanx. Normal middle phalanx. Normal distal phalanx. Normal proximal interphalangeal joint. Normal distal interphalangeal joint. Soft tissue swelling. RAD/Finger(s) Min 2 Views IMPRESSION: Soft tissue swelling. No fracture is seen. Electronically Signed: Orlin Thompson MD at 11:09 EDT , CC: Dr. Zeyad Cervantes, DO; No Primary Care Physician Production Control Technologist: Signed Normal [facility] CNOVon 07-06-2023 CN Office Visit ([facility]WSTR ) LAURIE CHRISTIE ([id number]) 1995 F Date Time Provider Department 07/06/23 11:00 AM INGA ESCOBAR [facility] During your visit today, we recorded the following information about you: Temperature Pulse Respiration Blood pressure 97.6 degrees 86/minute 16/minute 110/68 Weight 83 kg Inga Escobar APRN.[facility] 07/06/2023 11:13 AM Signed SUBJECTIVE: Laurie Christie is a 28 year old female. Who presents today with congestion sore throat and sinus congestion for 10 days. She has not had a fever at home. She has taken motrin for the symptoms. She had a strep test done last week and it was negative. She still is not feeling better. She has had exposure to others who are sick her friends are + for covid. We will do covid testing today. HPI PAST MEDICAL HISTORY Diagnosis Date Anemia in 07/30/2015 Gestational hypertension Menarche 2009 Age [age] Mental disorder Anxiety Attacks PMH - PAST MEDICAL HISTORY OF 03/2007 normal color vision FAMILY HISTORY Problem Relation Age of Onset other (anxiety) Mother Psychiatry Father bipolar No Known Problems Sister No Known Problems Sister other (ADHD) Sister other (ADHD) Brother No Known Problems Brother No Known Problems Brother COPD Maternal Grandmother Psychiatry Maternal Grandfather No Known Problems Paternal Grandmother No Known Problems Paternal Grandfather Cancer Maternal Aunt No Known Problems Daughter No Known Problems Daughter Social History Tobacco Use Smoking status: Every Day Years: 1 Types: Cigarettes Smokeless tobacco: Never Tobacco comments: 2 cigarettes a day Vaping Use Vaping Use: Never used Substance Use Topics Alcohol use: Not Currently Drug use: Never ALLERGIES No Known Allergies No current outpatient medications on file. No current facility-administered medications for this visit. OBJECTIVE: BP 110/68 Pulse 86 Temp 36.4 ?C (97.6 ?F) Resp 16 Wt 83 kg (183 lb) LMP 07/25/2021 SpO2 99% BMI 29.54 kg/m? ROS: All systems reviewed and are otherwise negative Constitutional: Well developed, well nourished, AANDO X3. ENT: Head is atraumatic, airway patent, mucosal membranes moist pink no exudate no GOLF TECHNICIAN Neck: full ROM, no meningeal signs Cardiac: heart tones regular rate and rhythm Respiratory: lung CTA : no CVA tenderness MS: moves all extremities, no deformities noted Neuro: GCS 15 no focal deficits Skin: warm and dry with out rash, lesion or ecchymosis Psych: alert appropriate, speech clear Diagnostic testing: COVID, Influenza A, Influenza B and RSV testing performed and results will be complete in the next 24-72 hours. The patient will be notified of the results in My Chart. MDM: Patient presented to the [facility] for COVID, Influenza and RSV testing. Laurie Christie presents today with symptoms suspicious for likely viral upper respiratory infection. Differential includes bacterial pneumonia, sinusitis, allergic rhinitis, and bronchitis to name a few. At this time I do not suspect a serious underlying cardiopulmonary process. I considered, but think unlikely, dangerous causes of this patient?s symptoms to include ACS, CHF, COPD exacerbations, pneumonia or pneumothorax. Patient is nontoxic appearing and not in need of emergent medical intervention.Vital signs were evaluated and found to be within normal limits. We discussed the COVID results will be back in the next 1-2 days. In accordance with the CDC guidelines, Laurie Christie was instructed to quarantine, if indicated, based on symptoms and exposure. We have discussed over the counter medications to use for their symptoms. They may take Motrin and Tylenol for pain, body aches and fever. They will follow-up with their family doctor in the next 2-3 days. If symptoms worsen they will go straight to the emergency department for further evaluation and treatment. They voiced understanding of the plan of care and are in agreement. ASSESSMENT/PLAN: 1. Exposure to SARS-associated coronavirus - ICD9: V01.82, ICD10: Z20.828 - COVID AND INFLUENZA A/B AND RSV NAAT, ROUTINE Inga Escobar APRN.OLERICULTURIST Allergies As of Date: 07/06/2023 (No Known Allergies) Date Reviewed: 07/06/2023 Reviewed by: Carmen Christie - Fully Assessed Reason for Visit: Nasal Congestion [235] Cmt: drainage, sore throat, cough, dizziness and nausea x over 1 week Primary Visit Diagnosis:Exposure to SARS-associated coronavirus [Z20.828] Order(s):COVID AND INFLUENZA A/B AND RSV NAAT, ROUTINE [SQCVFLRS] Order #: [id number]. #:[id number] Meds Comments as of 05/06/2018: 05/06/2018 No longer on Depo-Provera Sherita Mendes RN Problem List As Of Date 07/06/2023 Noted Resolved Anemia in [O99.019] 07/30/2015 04/06/2017 Abnormal glucose affecting [O99.810] 08/07/2015 04/06/2017 Short inte (more content not included)... Normal [facility] COVID AND INFLUENZA A/B AND RSV NAAT, ROUTINEon 07-06-2023 SARS-CoV-2 (COVID-19) RNA DORITA+probe Ql (Unsp spec) COVID 19 RESULT: Detected The method used is RT-PCR or an equivalent NAAT method. Reference Range (the expected result in uninfected individuals): Not detected INFLUENZA A PCR: Not detected INFLUENZA B PCR: Not detected RSV PCR: Not detected Abnormal [facility] Comment on above: Performed By: #### C VFLRS ####[facility] LABCLIA [id number] [address] [place] CNOVon 06-29-2023 CNOV Office Visit ([facility]WSTR ) LAURIE CHRISTIE ([id number]) 1995 F Date Time Provider Department 06/29/23 10:30 AM DANIEL AZUL During your visit today, we recorded the following information about you: Temperature Pulse Respiration Blood pressure 97.3 degrees 86/minute 16/minute 122/80 Weight 80.7 kg Daniel Azul APRN.[facility] 06/29/2023 11:01 AM Signed CC: Patient presents with: Sore Throat: x 3 days, nausea and upset stomach x 1 day HPI: Laurie Christie is a 28 year old female who presents to the office with complaint of sore throat for the past day. Symptoms are staying the same. Associated symptoms includes nausea. Denies fever and diarrhea. Treatments tried include nothing so far. with no relief of symptoms. Sick contacts: unknown. History of asthma, frequent episodes of bronchitis, chronic bronchitis, bronchiectasis or COPD: No Smoker: No Seasonal/environmental allergies: No The ROS is otherwise negative. The patient's pmh, medications, allergies, and past visits are reviewed. PHYSICAL EXAM: BP 122/80 Pulse 86 Temp 36.3 ?C (97.3 ?F) Resp 16 Wt 80.7 kg (178 lb) LMP 07/25/2021 SpO2 99% BMI 28.73 kg/m? General appearance: alert, cooperative, pleasant, in no acute distress Head: Normocephalic Eyes: EOM's intact, conjunctiva pink and moist, no icterus, sclera white, non-injected Ears: Right ear: External ear/canal- Normal, TM - clear with good landmarks. Left ear: External ear/canal- Normal, TM - clear with good landmarks Oropharynx:moderate erythema, without exudates present Heart: Negative. RRR without obvious murmur, gallop, or rubs. No ectopy. Lungs: clear to auscultation, without rales or wheeze, good air exchange PAST MEDICAL HISTORY Diagnosis Date Anemia in 07/30/2015 Gestational hypertension Menarche 2009 Age 13.5 Mental disorder Anxiety Attacks PMH - PAST MEDICAL HISTORY OF 03/2007 normal color vision PAST SURGICAL HISTORY Procedure Laterality Date DANDC (INCOMPLETE AB), ANY TRIMESTER [id number]/29/2019 SALPINGECTOMY Bilateral 08/30/2021 laparoscopic ALLERGIES Patient has no known allergies. MEDICATIONS No prescriptions on file. FAMILY HISTORY Problem Relation Age of Onset other (anxiety) Mother Psychiatry Father bipolar No Known Problems Sister No Known Problems Sister other (ADHD) Sister other (ADHD) Brother No Known Problems Brother No Known Problems Brother COPD Maternal Grandmother Psychiatry Maternal Grandfather No Known Problems Paternal Grandmother No Known Problems Paternal Grandfather Cancer Maternal Aunt No Known Problems Daughter No Known Problems Daughter Social History Tobacco Use Smoking status: Every Day Years: 1 Types: Cigarettes Smokeless tobacco: Never Tobacco comments: 2 cigarettes a day Vaping Use Vaping Use: Never used Substance Use Topics Alcohol use: Not Currently Drug use: Never ASSESSMENT/PLAN: 1. Sore throat - ICD9: 462, ICD10: J02.9 (primary diagnosis) 2. Nausea - ICD9: 787.02, ICD10: R11.0 - ONDANSETRON 4 MG DISINTEGRATING TABLET Prescription instructions reviewed with patient as applicable. Potential red flag symptoms discussed with the patient. Reviewed appropriate action plan to take if red flag symptoms occur. Patient agreeable to treatment plan. Daniel Azul APRN.OLERICULTURIST Allergies As of Date: 06/29/2023 (No Known Allergies) Date Reviewed: 06/29/2023 Reviewed by: Carmen Christie - Fully Assessed Reason for Visit: Sore Throat [200] Cmt: x 3 days, nausea and upset stomach x 1 day Primary Visit Diagnosis:Sore throat [J02.9] Other Visit Diagnosis:Nausea [R11.0] Order(s):STREP A MOLECULAR (POC) [4706163] Order #: [id number] #:[id number] ondansetron orally disintegrating (ZOFRAN ODT) 4 mg disintegrating tabletTake 1 tablet by mouth every 8 hours as needed for nausea/vomiting for up to 5 days.Disp: 15 tabletRfl: 0 Prescriptions as of 06/29/2023 - ondansetron orally disintegrating (ZOFRAN ODT) 4 mg disintegrating tablet Take 1 tablet by mouth every 8 hours as needed for nausea/vomiting for up to 5 days. Meds Comments as of 05/06/2018: 05/06/2018 No longer on Depo-Provera Sherita Mendes RN Problem List As Of Date 06/29/2023 Noted Resolved Anemia in [O99.019] 07/30/2015 04/06/2017 Abnormal glucose affecting [O99.810] 08/07/2015 04/06/2017 Short interval between pregnancies affecting pr*07/24/2016 08/11/2017 Family history of von Willebrand disease [Z83.2]07/24/2016 Family history of cleft lip and palate [Z82.79] 07/24/2016 Patient request for diagnostic testing [Z01.89] 07/24/2016 History of miscarriage [Z87.59] 11/20/2016 Family history of congenital anomalies [Z82.79] 11/20/2016 Quit smoking [Z87.891] 12/30/2018 History of anxiety [Z86.59] 12/30/2018 Tobacco use during , ant (more content not included)... Normal [facility] STREP A MOLECULAR (POC)on Procedural Control Valid [facility] Strep A (POCT) Negative Negative [facility] STREP A MOLECULAR (POC)on Procedural Control Valid [facility] Strep A (POCT) Negative Negative [facility] Absolute lymphocyte countOrd ered By: Dr. Anton on 06-16-2022 Lymphocytes Auto (Unsp spec) [#/Vol] 3.23 10*3/uL 0.83-4.51 [facility] Basophil percentageOrdered B y: Dr. Anton on 06-16-2022 Basophils/100 WBC (Bld) 0.5 % 0-1 [facility] Eosinophils/100 WBC (Bld) 3.9 % 0-5 [facility] Neutrophils (Bld) [#/Vol] 7.2 10*3/uL 2.0-7.7 [facility] Neutrophils/100 WBC (Bld) 61.7 % 47-70 [facility] WBC (Bld) [#/Vol] 11.6 10*3/uL 4.4-11.0 [facility] Blood erythrocytes count (nu mber/volume)Ordered By: Dr. Anton on 06-16-2022 RBC (Bld) [#/Vol] 5.03 10*6/uL 4.2-5.4 [facility] Blood hemoglobin measurement (mass/volume)Ordered By: Dr. Anton on 06-16-2022 Hemoglobin (Bld) [Mass/Vol] 14.4 g/dL 12.0-15.0 [facility] Blood lymphocytes/100 leukoc ytesOrdered By: Dr. Anton on 06-16-2022 Lymphocytes/100 WBC (Bld) 27.9 % 19-41 [facility] Blood monocytes/100 leukocyt esOrdered By: Dr. Anton on 06-16-2022 Monocytes/100 WBC (Bld) 5.6 % 0-10 [facility] Blood platelet mean volumeOr dered By: Dr. Anton on 06-16-2022 Platelet mean volume (Bld) [Entitic vol] 9.3 fL 6.2-12.0 [facility] Determination of erythrocyte mean corpuscular volume (MCV)Ordered By: Dr. Anton on 06-16-2022 MCV (RBC) [Entitic vol] 88.5 fL 81-99 [facility] Hematocrit Auto (Bld) [Volum e fraction]Ordered By: Dr. Anton on 06-16-2022 Hematocrit (Bld) [Volume fraction] 44.5 % 37-47 [facility] Laboratory - Chemistry and C hemistry - challengeOrdered By: Dr. Anton on 06-16-2022 Free T4 [Mass/Vol] 0.99 ng/dL 0.76-1.46 [facility] Laboratory - Hematology and Cell countsOrdered By: Dr. Anton on 06-16-2022 Erythrocyte distribution width (RBC) [Entitic vol] 42.8 fL 35.1-43.9 [facility] Erythrocyte distribution width (RBC) [Ratio] 13.2 % 11.6-14.6 [facility] Immature granulocytes/100 WBC (Bld) 0.400 % 0.0-0.9 [facility] Comment on above: IG% - Immature Granu locytes (promyelocytes, myelocytes and metamyelocytes) > 1% indicates that a LEFT SHIFT is Present. MCH (RBC) [Entitic mass] 28.6 pg 27.0-32.0 [facility] Nucleated RBC/100 WBC (Bld) [Ratio] 0 % 0-5 [facility] Auto (RBC) [Mass/Vol]Or dered By: Dr. Anton on 06-16-2022 MCHC (RBC) [Mass/Vol] 32.4 g/dL 32-36 [facility] No Panel InformationOrdered By: Dr. Anton on 06-16-2022 Thyroid Stimulating Hormone (TSH) 1.59 uIU/mL 0.358-3.74 [facility] Platelets bldOrdered By: Dr. Anton on 06-16-2022 Platelets (Bld) [#/Vol] 343 10*3/uL 150-450 [facility] Serum heterophile antibody d etectionOrdered By: Dr. Anton on 06-16-2022 Heterophile Ab Ql (S) Negative Negative [facility] UA DIP, URINE (POC)on 2021 BILIRUBIN UA (POCT) Negative Negative [facility] CLARITY UA (POCT) Clear [facility] COLOR UA (POCT) Yellow [facility] GLUCOSE UA (POCT) Negative Negative mg/dL [facility] HEMOGLOBIN/BLOOD UA (POCT) Negative Negative [facility] KETONE UA (POCT) Negative Negative mg/dL [facility] LEUKOCYTES UA (POCT) Trace Abnormal Negative [facility] NITRITE UA (POCT) Negative [facility] PH UA (POCT) 6.5 4.5 - 8.0 [facility] Protein Ql (U) Negative Negative mg/dL [facility] SPECIFIC GRAVITY UA (POCT) 1.020 1.005 - 1.030 [facility] UROBILINOGEN UA (POCT) 0.2 E.U./dL Normal E.U./dL [facility] Laboratory - Chemistry and C hemistry - challengeon 08-30-2021 HCG ( test) Ql (U) Negative [facility] Work Phone: Comment on above: Very dilute urine sp ecimens, as indicated by a low specificgravity, may not contain dairy supplies sales representative levels of hCG. If is still suspected, a first morning urinespecimen should be collected 48 hours later and tested. 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 Invalid Interpretation Code [facility] Work Phone: Vital Signs Date Time Vital Sign Value Performing Clinician Facility 08-21-2024 20:18-0400 Body height 165.1 cm No Primary Care Physician [facility] 08-21-2024 20:18-0400 Body mass index (BMI) [Ratio] 27.4 kg/m2 No Primary Care Physician [facility] 08-21-2024 20:18-0400 Body temperature 98.2 [degF] No Primary Care Physician [facility] 08-21-2024 20:18-0400 Body weight 74.84 kg No Primary Care Physician [facility] 08-21-2024 20:18-0400 Diastolic blood pressure 92 mm[Hg] No Primary Care Physician [facility] 08-21-2024 20:18-0400 Heart rate 95 /min No Primary Care Physician [facility] 08-21-2024 20:18-0400 Respiratory rate 18 /min No Primary Care Physician [facility] 08-21-2024 20:18-0400 SaO2% (BldA) [Mass fraction] 100 % No Primary Care Physician [facility] 08-21-2024 20:18-0400 Systolic blood pressure 128 mm[Hg] No Primary Care Physician [facility] 07-08-2024 10:52-0500 Body temperature 97.2 [degF] No Primary Care Physician [facility] 07-08-2024 10:52-0500 Diastolic blood pressure 99 mm[Hg] No Primary Care Physician [facility] 07-08-2024 10:52-0500 Heart rate 85 /min No Primary Care Physician [facility] 07-08-2024 10:52-0500 Respiratory rate 16 /min No Primary Care Physician [facility] 07-08-2024 10:52-0500 SaO2% (BldA) [Mass fraction] 98 % No Primary Care Physician [facility] 07-08-2024 10:52-0500 Systolic blood pressure 145 mm[Hg] No Primary Care Physician [facility] 07-08-2024 10:19-0500 Body mass index (BMI) [Ratio] 27.2 kg/m2 No Primary Care Physician [facility] 07-08-2024 10:19-0500 Body weight 74.2 kg No Primary Care Physician [facility] 05-24-2024 11:39-0500 Body mass index (BMI) [Ratio] 27.2 kg/m2 Gagandeep Ferreira PHP DEVELOPER.OLERICULTURIST Work Phone: [facility] 05-24-2024 11:39-0500 Body temperature 98.29 [degF] Gagandeep Ferreira PHP DEVELOPER.OLERICULTURIST Work Phone: [facility] 05-24-2024 11:39-0500 Body weight 75.3 kg Gagandeep Ferreira PHP DEVELOPER.OLERICULTURIST Work Phone: [facility] 05-24-2024 11:39-0500 Diastolic blood pressure 72 mm[Hg] Gagandeep Ferreira PHP DEVELOPER.OLERICULTURIST Work Phone: [facility] 05-24-2024 11:39-0500 Heart rate 79 /min Gagandeep Ferreira PHP DEVELOPER.OLERICULTURIST Work Phone: [facility] 05-24-2024 11:39-0500 Respiratory rate 16 /min Gagandeep Ferreira PHP DEVELOPER.OLERICULTURIST Work Phone: [facility] 05-24-2024 11:39-0500 SaO2% (BldA) [Mass fraction] 98 % Gagandeep Ferreira PHP DEVELOPER.OLERICULTURIST Work Phone: [facility] 05-24-2024 11:39-0500 Systolic blood pressure 110 mm[Hg] Gagandeep Ferreira PHP DEVELOPER.OLERICULTURIST Work Phone: [facility] 03-08-2024 10:45-0400 Body mass index (BMI) [Ratio] 28.14 kg/m2 Gagandeep Ferreira PHP DEVELOPER.OLERICULTURIST Work Phone: [facility] 03-08-2024 10:45-0400 Body temperature 96.91 [degF] [facility] DEVELOPER.OLERICULTURIST Work Phone: [facility] 03-08-2024 10:45-0400 Body weight 77.9 kg [facility] PHP DEVELOPER.OLERICULTURIST Work Phone: [facility] 03-08-2024 10:45-0400 Diastolic blood pressure 60 mm[Hg] [facility] PHP DEVELOPER.OLERICULTURIST Work Phone: [facility] 03-08-2024 10:45-0400 Heart rate 78 /min [facility] PHP DEVELOPER.OLERICULTURIST Work Phone: [facility] 03-08-2024 10:45-0400 Respiratory rate 16 /min [facility] PHP DEVELOPER.OLERICULTURIST Work Phone: [facility] 03-08-2024 10:45-0400 SaO2% (BldA) [Mass fraction] 100 % [facility] PHP DEVELOPER.OLERICULTURIST Work Phone: [facility] 03-08-2024 10:45-0400 Systolic blood pressure 104 mm[Hg] [facility] PHP DEVELOPER.OLERICULTURIST Work Phone: [facility] 01-20-2024 08:22-0400 Body height 166.4 cm Luh Martinez MD Work Phone: [facility] 01-20-2024 08:22-0400 Body mass index (BMI) [Ratio] 29.17 kg/m2 Luh Martinez MD Work Phone: [facility] 01-20-2024 08:22-0400 Body weight 80.74 kg Luh Martinez MD Work Phone: [facility] 01-20-2024 08:22-0400 Diastolic blood pressure 78 mm[Hg] Luh Martinez MD Work Phone: [facility] 01-20-2024 08:22-0400 Systolic blood pressure 122 mm[Hg] Luh Martinez MD Work Phone: [facility] 09-30-2023 14:07-0400 Body height 165.1 cm [facility] 09-30-2023 14:07-0400 Body mass index (BMI) [Ratio] 29.8 kg/m2 [facility] 09-30-2023 14:07-0400 Body temperature 97.2 [degF] [facility] 09-30-2023 14:07-0400 Body weight 81.28 kg [facility] 09-30-2023 14:07-0400 Diastolic blood pressure 90 mm[Hg] [facility] 09-30-2023 14:07-0400 Heart rate 94 /min [facility] 09-30-2023 14:07-0400 Respiratory rate 16 /min [facility] 09-30-2023 14:07-0400 SaO2% (BldA) [Mass fraction] 100 % [facility] 09-30-2023 14:07-0400 Systolic blood pressure 140 mm[Hg] [facility] 07-06-2023 10:56-0500 Body temperature 97.59 [degF] Inga Escobar PHP DEVELOPER.OLERICULTURIST Work Phone: [facility] 07-06-2023 10:56-0500 Body weight 83.01 kg Inga Escobar PHP DEVELOPER.OLERICULTURIST Work Phone: [facility] 07-06-2023 10:56-0500 Diastolic blood pressure 68 mm[Hg] Inga Escobar PHP DEVELOPER.OLERICULTURIST Work Phone: [facility] 07-06-2023 10:56-0500 Heart rate 86 /min Inga Escobar PHP DEVELOPER.OLERICULTURIST Work Phone: [facility] 07-06-2023 10:56-0500 Respiratory rate 16 /min Inga Escobar PHP DEVELOPER.OLERICULTURIST Work Phone: [facility] 07-06-2023 10:56-0500 SaO2% (BldA) [Mass fraction] 99 % Inga Escobar PHP DEVELOPER.OLERICULTURIST Work Phone: [facility] 07-06-2023 10:56-0500 Systolic blood pressure 110 mm[Hg] Inga Escobar KIRTI.OLERICULTURIST Work Phone: [facility] 06-29-2023 10:36-0500 Body temperature 97.3 [degF] Daniel Azul APRN.OLERICULTURIST Work Phone: [facility] 06-29-2023 10:36-0500 Body weight 80.74 kg Daniel Azul APRN.OLERICULTURIST Work Phone: [facility] 06-29-2023 10:36-0500 Diastolic blood pressure 80 mm[Hg] Daniel Azul APRN.OLERICULTURIST Work Phone: [facility] 06-29-2023 10:36-0500 Heart rate 86 /min Daniel Azul APRN.OLERICULTURIST Work Phone: [facility] 06-29-2023 10:36-0500 Respiratory rate 16 /min Daniel Azul APRN.OLERICULTURIST Work Phone: [facility] 06-29-2023 10:36-0500 SaO2% (BldA) [Mass fraction] 99 % Daniel Azul APRN.OLERICULTURIST Work Phone: [facility] 06-29-2023 10:36-0500 Systolic blood pressure 122 mm[Hg] Daniel Azul APRN.OLERICULTURIST Work Phone: [facility] 04-26-2023 01:56-0500 Heart rate 75 /min [facility] 04-26-2023 01:56-0500 Respiratory rate 16 /min [facility] 04-26-2023 01:56-0500 SaO2% (BldA) [Mass fraction] 97 % [facility] 04-26-2023 00:57-0500 Body height 165.1 cm [facility] 04-26-2023 00:57-0500 Body mass index (BMI) [Ratio] 29.2 kg/m2 [facility] 04-26-2023 00:57-0500 Body temperature 97.1 [degF] [facility] 04-26-2023 00:57-0500 Body weight 79.7 kg [facility] 04-26-2023 00:57-0500 Diastolic blood pressure 96 mm[Hg] [facility] 04-26-2023 00:57-0500 Systolic blood pressure 133 mm[Hg] [facility] 10-27-2022 07:19-0400 Body temperature 97.59 [degF] Veto Pickens MD Work Phone: [facility] 10-27-2022 07:19-0400 Body weight 75.3 kg Veto Pickens MD Work Phone: [facility] 10-27-2022 07:19-0400 Diastolic blood pressure 70 mm[Hg] Veto Pickens MD Work Phone: [facility] 10-27-2022 07:19-0400 Heart rate 64 /min Veto Pickens MD Work Phone: [facility] 10-27-2022 07:19-0400 Respiratory rate 16 /min Veto Pickens MD Work Phone: [facility] 10-27-2022 07:19-0400 SaO2% (BldA) [Mass fraction] 98 % Veto Pickens MD Work Phone: [facility] 10-27-2022 07:19-0400 Systolic blood pressure 102 mm[Hg] Veto Pickens MD Work Phone: [facility] 06-16-2022 22:51-0500 Respiratory rate 16 /min [facility] 06-16-2022 20:51-0500 Body height 165.1 cm [facility] 06-16-2022 20:51-0500 Body mass index (BMI) [Ratio] 28.8 kg/m2 [facility] 06-16-2022 20:51-0500 Body temperature 96.4 [degF] [facility] 06-16-2022 20:51-0500 Body weight 78.47 kg [facility] 06-16-2022 20:51-0500 Diastolic blood pressure 107 mm[Hg] [facility] 06-16-2022 20:51-0500 Heart rate 112 /min [facility] 06-16-2022 20:51-0500 SaO2% (BldA) [Mass fraction] 100 % [facility] 06-16-2022 20:51-0500 Systolic blood pressure 138 mm[Hg] [facility] 06-15-2022 15:47-0500 Body height 165.1 cm [facility] 06-15-2022 15:47-0500 Body mass index (BMI) [Ratio] 28.8 kg/m2 [facility] 06-15-2022 15:47-0500 Body temperature 97.8 [degF] [facility] 06-15-2022 15:47-0500 Body weight 78.47 kg [facility] 06-15-2022 15:47-0500 Diastolic blood pressure 108 mm[Hg] [facility] 06-15-2022 15:47-0500 Heart rate 90 /min [facility] 06-15-2022 15:47-0500 Respiratory rate 18 /min [facility] 06-15-2022 15:47-0500 SaO2% (BldA) [Mass fraction] 99 % [facility] 06-15-2022 15:47-0500 Systolic blood pressure 145 mm[Hg] [facility] 04-25-2022 00:41-0500 Body height 165.1 cm [facility] Work Phone: 04-25-2022 00:41-0500 Body mass index (BMI) [Ratio] 28.1 kg/m2 [facility] 04-25-2022 00:41-0500 Body temperature 97.2 [degF] [facility] 04-25-2022 00:41-0500 Body weight 76.8 kg [facility] 04-25-2022 00:41-0500 Diastolic blood pressure 114 mm[Hg] [facility] 04-25-2022 00:41-0500 Heart rate 84 /min [facility] 04-25-2022 00:41-0500 Respiratory rate 17 /min [facility] 04-25-2022 00:41-0500 SaO2% (BldA) [Mass fraction] 99 % [facility] 04-25-2022 00:41-0500 Systolic blood pressure 152 mm[Hg] [facility] 04-23-2022 09:59-0500 Body temperature 97.59 [degF] Anitra Praisler-Wood PHP DEVELOPER.OLERICULTURIST Work Phone: [facility] 04-23-2022 09:59-0500 Body weight 80.74 kg Anitra Praisler-Wood PHP DEVELOPER.OLERICULTURIST Work Phone: [facility] 04-23-2022 09:59-0500 Diastolic blood pressure 70 mm[Hg] Anitra Praisler-Wood PHP DEVELOPER.OLERICULTURIST Work Phone: [facility] 04-23-2022 09:59-0500 Heart rate 86 /min Anitra Praisler-Wood PHP DEVELOPER.OLERICULTURIST Work Phone: [facility] 04-23-2022 09:59-0500 Respiratory rate 16 /min Anitra Praisler-Wood PHP DEVELOPER.OLERICULTURIST Work Phone: [facility] 04-23-2022 09:59-0500 SaO2% (BldA) [Mass fraction] 98 % Anitra Praisler-Wood PHP DEVELOPER.OLERICULTURIST Work Phone: [facility] 04-23-2022 09:59-0500 Systolic blood pressure 112 mm[Hg] Anitra Praisler-Wood PHP DEVELOPER.OLERICULTURIST Work Phone: [facility] 12-10-2021 07:07-0400 Body height 165.1 cm No Primary Care Physician [facility] Work Phone: 12-10-2021 07:07-0400 Body mass index (BMI) [Ratio] 32.3 kg/m2 No Primary Care Physician [facility] Work Phone: 12-10-2021 07:07-0400 Body temperature 97.9 [degF] No Primary Care Physician [facility] Work Phone: 12-10-2021 07:07-0400 Body weight 87.99 kg No Primary Care Physician [facility] Work Phone: 12-10-2021 07:07-0400 Diastolic blood pressure 96 mm[Hg] No Primary Care Physician [facility] Work Phone: 12-10-2021 07:07-0400 Heart rate 98 /min No Primary Care Physician [facility] Work Phone: 12-10-2021 07:07-0400 Respiratory rate 18 /min No Primary Care Physician [facility] Work Phone: 12-10-2021 07:07-0400 SaO2% (BldA) [Mass fraction] 99 % No Primary Care Physician [facility] Work Phone: 12-10-2021 07:07-0400 Systolic blood pressure 130 mm[Hg] No Primary Care Physician [facility] Work Phone: 08-30-2021 12:42-0400 Body temperature 97.1 [degF] [facility] Work Phone: 08-30-2021 12:42-0400 Diastolic blood pressure 61 mm[Hg] [facility] Work Phone: 08-30-2021 12:42-0400 Heart rate 70 /min [facility] Work Phone: 08-30-2021 12:42-0400 Respiratory rate 14 /min [facility] Work Phone: 08-30-2021 12:42-0400 SaO2% (BldA) [Mass fraction] 95 % [facility] Work Phone: 08-30-2021 12:42-0400 Systolic blood pressure 111 mm[Hg] [facility] Work Phone: 08-30-2021 08:46-0400 Body height 165.1 cm [facility] Work Phone: 08-30-2021 08:46-0400 Body mass index (BMI) [Ratio] 32.3 kg/m2 [facility] Work Phone: 08-30-2021 08:46-0400 Body weight 88 kg [facility] Work Phone: 08-22-2021 14:00-0400 Body temperature 98.01 [degF] Veto Pickens MD Work Phone: [facility] 08-22-2021 14:00-0400 Body weight 88.45 kg Veto Pickens MD Work Phone: [facility] 08-22-2021 14:00-0400 Diastolic blood pressure 76 mm[Hg] Veto Pickens MD Work Phone: [facility] 08-22-2021 14:00-0400 Heart rate 82 /min Veto Pickens MD Work Phone: [facility] 08-22-2021 14:00-0400 Respiratory rate 16 /min Veto Pickens MD Work Phone: [facility] 08-22-2021 14:00-0400 SaO2% (BldA) [Mass fraction] 97 % Veto Pickens MD Work Phone: [facility] 08-22-2021 14:00-0400 Systolic blood pressure 120 mm[Hg] Veto Pickens MD Work Phone: [facility] 11-13-2016 13:29-0400 BMI (Body Mass Index) 28.34 kg/m2 Yovani MONROY [facility] Work Phone: 11-13-2016 13:29-0400 Body Temperature 98 [degF] Yovani MONROY [facility] Work Phone: 11-13-2016 13:29-0400 BP Diastolic 88 mm[Hg] Yovani MONROY [facility] Work Phone: 11-13-2016 13:29-0400 BP Systolic 134 mm[Hg] Yovani MONROY [facility] Work Phone: 11-13-2016 13:29-0400 Height 160.02 cm Yovani MONROY [facility] Work Phone: 11-13-2016 13:29-0400 Pulse (Heart Rate) 64 /min Yovani MONROY [facility] Work Phone: 11-13-2016 13:29-0400 Pulse Oximetry 99 % Yovani MONROY [facility] Work Phone: 11-13-2016 13:29-0400 Respiratory Rate 16 /min Yovani MONROY [facility] Work Phone: 11-13-2016 13:29-0400 Weight 72.58 kg Yovani Sharon MONROY [facility] Work Phone: Encounters Encounter Date Encounter Type Care Provider Facility Start: 08-21-2024 End: 08-21-2024 Emergency department patient visit No Primary Care Physician -Emergency Department Work Phone: Start: 07-08-2024 End: 07-08-2024 Emergency department patient visit Dr. Zana Blakely MD -Emergency Department Work Phone: Start: 05-24-2024 End: 05-24-2024 ambulatory LUH MOHANT MARTINEZ Facility:[facility] Start: 05-24-2024 End: 05-24-2024 Office outpatient visit 15 minutes Gagandeep Ferreira PHP DEVELOPER.OLERICULTURIST Work Phone: [facility] Comment on above: TMJ dysfunction (Michelle johny Dx) Start: 03-08-2024 End: 03-08-2024 ambulatory LUH MOHANT MARTINEZ Facility:[facility] Start: 03-08-2024 End: 03-08-2024 Office outpatient visit 25 minutes Gagandeep Ferreira PHP DEVELOPER.OLERICULTURIST Work Phone: [facility] Comment on above: Acute midline low ba ck pain without sciatica (Primary Dx); Rash Start: 02-23-2024 End: 02-23-2024 ambulatory LUH NEYHART MARTINEZ OB/Gynecology Start: 02-23-2024 End: 02-23-2024 Patient encounter procedure [employer] OB/Gynecology Start: 01-20-2024 End: 01-20-2024 ambulatory LUH NEYHART MARTINEZ Facility:[facility] Start: 01-20-2024 End: 01-20-2024 Patient encounter procedure Luh Martinez MD Work Phone: OB/Gynecology Comment on above: Encounter for gyneco logical examination (general) (routine) without abnormal findings (Primary Dx); Screening for cervical cancer; Screen for STD (sexually transmitted disease); Need for prophylactic vaccination/inoculation against viral disease; Dysmenorrhea; Pelvic pain in female; Abnormal uterine bleeding (AUB) Start: 01-20-2024 End: 01-20-2024 Patient encounter status Luh Maritnez MD Work Phone: [facility] Start: 11-12-2023 End: 11-12-2023 Emergency department patient visit No Primary Care Physician Facility:[facility] Start: 09-30-2023 End: 09-30-2023 Emergency department patient visit [facility]-Emergency Department Work Phone: Start: 07-06-2023 End: 07-06-2023 ambulatory LUH MARTINEZ Facility:[facility] Start: 07-06-2023 End: 07-06-2023 Patient encounter procedure Inga Escobar APRN.OLERICULTURIST Work Phone: [facility] Comment on above: Exposure to SARS-ass ociated coronavirus (Primary Dx) Start: 06-29-2023 End: 06-29-2023 ambulatory LUH MARTINEZ Facility:[facility] Start: 06-29-2023 End: 06-29-2023 Patient encounter procedure Daniel Azul APRN.OLERICULTURIST Work Phone: [facility] Comment on above: Sore throat (Primary Dx); Nausea Start: 04-26-2023 End: 04-26-2023 Emergency department patient visit [facility]gency [facility] Work Phone: Start: 10-27-2022 End: 10-27-2022 Patient encounter procedure Veto Pickens MD Work Phone: [facility] Comment on above: Sore throat (Primary Dx); Fatigue, unspecified type; Bilateral impacted cerumen Start: 06-16-2022 End: 06-17-2022 Emergency department patient visit [facility]Emergency [facility] Start: 06-15-2022 End: 06-15-2022 [facility] Start: 04-25-2022 End: 04-25-2022 [facility] Start: 04-24-2022 Telephone encounter Gagandeep aguilar APRN.OLERICULTURIST Work Phone: [facility] Comment on above: Results Start: 04-23-2022 End: 04-23-2022 Patient encounter procedure Anitra Barker APRN.OLERICULTURIST Work Phone: [facility] Comment on above: Urinary frequency (P rimary Dx) Start: 12-10-2021 End: 12-10-2021 Emergency department patient visit No Primary Care Physician [facility]-Emergency Department Start: 11-07-2021 ambulatory Zana Russo Work Phone: [facility] Comment on above: Eye twitching Start: 08-30-2021 End: 08-30-2021 Admission to same day surgery center [facility] Start: 08-30-2021 Non-patient / Non-visit No [facility] Care Physician [facility] Start: 08-22-2021 End: 08-22-2021 Patient encounter procedure Veto Pickens MD Work Phone: [facility] Comment on above: Bilateral impacted c erumen (Primary Dx) Start: 03-24-2019 Patient requested procedure Veto Pickens MD Work Phone: [facility] Work Phone: Procedures Date Procedure Procedure Detail Performing Clinician Start: 08-21-2024 Plain x-ray of elbow No Primary Care Physician Start: 03-08-2024 Urnls dip stick/tabl et rgnt auto w/o microscopy Gagandeep Ferreira APRN.OLERICULTURIST Work Phone: Start: 02-23-2024 Us pelvic nonobstetr ic real-time image complete Luh Martinez MD Work Phone: Start: 06-29-2023 STREP A MOLECULAR (POC) [facility] Provider Start: 10-27-2022 STREP A MOLECULAR (POC) Veto Pickens MD Work Phone: Start: 06-16-2022 X-ray of soft tissue of neck Start: 04-23-2022 Urnls dip stick/tabl et rgnt auto w/o microscopy Daphney Andres [facility] Work Phone: Start: 12-10-2021 Plain X-ray of scapula No Primary Care Physician Start: 12-10-2021 Plain X-ray of shoulder No Primary Care Physician Start: 08-30-2021 Laparoscopic salpingectomy Start: 08-29-2021 End: 08-29-2021 Viral antigen assay Start: 11-13-2016 End: 11-13-2016 Urine, test (choriogonadotropin presence) Yovani MONROY Work Phone: Viral antigen assay No Prima ry Care Physician Plan of Treatment Date Care Activity Detail Author Start: 02-25-2031 Urine microalbumin profile DTaP,Tdap,Td Vaccine (11 - Td or Tdap) [facility] Start: 08-21-2029 Urine microalbumin profile DTAP,TDAP,TD (9 - Td or Tdap) [facility] Start: 01-19-2027 Screening for malign ant neoplasm of cervix Cervical Cancer Screening [facility] Start: 01-25-2025 End: 01-25-2025 Patient encounter procedure 01/25/2025 11:20 AM EDT Office Visit OB/Gynecology [address] [place] [address] Luh Drew MD [address] [place] [address] Annual OB/Gynecology Comment on above: Annual Start: 07-18-2024 9vhpv vacc 2/3 dose sched im use HPV VACCINE, 9-VALENT (GARDASIL 9) Immunization/Injection Routine Need for prophylactic vaccination/inoculation against viral disease Expected: 07/18/2024 (Approximate) [facility] Comment on above: Expected: 07/18/2024 (Approximate) Start: 07-18-2024 PAP TESTING PAP TESTING [facility] Start: 07-18-2024 Screening for malign ant neoplasm of cervix [facility] Start: 07-08-2024 [facility] Start: 03-20-2024 9vhpv vacc 2/3 dose sched im use HPV VACCINE, 9-VALENT (GARDASIL 9) Immunization/Injection Routine Need for prophylactic vaccination/inoculation against viral disease Expected: 03/20/2024 (Approximate) [facility] Comment on above: Expected: 03/20/2024 (Approximate) Start: 02-23-2024 End: 02-23-2024 Manual pelvic examination 02/23/2024 8:00 AM EDT Procedure OB/Gynecology [address] [place] [address] Pelvic US OB/Gynecology Comment on above: Pelvic US Start: 01-24-2024 Covid-19 Vaccine ( season) Covid-19 Vaccine () [facility] Start: 01-24-2024 Influenza vaccination Influenza Vacc ine (#1) [facility] Start: 01-20-2024 End: 01-19-2025 US Pelvis PELVIC US [facility] Routine Dysmenorrhea Pelvic pain in female Abnormal uterine bleeding (AUB) Expected: 01/20/2024, Expires: 01/19/2025 [facility] Comment on above: Expected: 01/20/2024 , Expires: 01/19/2025 Start: 05-25-2023 Depression Assessment Depression Ass essment [facility] Start: 04-26-2023 [facility] Start: 01-23-2023 Covid-19 Vaccine () Covid-19 Vaccine () [facility] Start: 01-23-2023 Influenza vaccination C [facility] Start: 10-27-2022 End: 12-27-2022 CBC W Auto Differential panel - Blood [facility] Work Phone: Comment on above: Expected: 10/27/2022 , Expires: 12/27/2022 Start: 10-27-2022 End: 12-27-2022 Comprehensive metabolic 2000 panel - Serum or Plasma [facility] Work Phone: Comment on above: Expected: 10/27/2022 , Expires: 12/27/2022 Start: 10-27-2022 End: 12-27-2022 Heterophile Ab [Presence] in Serum by Latex agglutination [facility] Work Phone: Comment on above: Expected: 10/27/2022 , Expires: 12/27/2022 Start: 05-25-2022 [facility] Start: 01-23-2022 Influenza vaccination [facility] Start: 08-30-2021 Anesthesia intraperitoneal lower abd w/laps nos ANESTH SURG LOWER ABDOMEN [facility] Work Phone: Start: 08-30-2021 Laparoscopy w/rmvl adnexal structures LAPAROSCOPY REMOVE ADNEXA [facility] Work Phone: Start: 08-30-2021 Ambulation without limitation [facility] Work Phone: Start: 08-30-2021 Medical regimen orde rs management [facility] Work Phone: Start: 08-30-2021 Medication education [facility] Work Phone: Start: 08-30-2021 Patient discharge [facility] Work Phone: Start: 08-30-2021 Procedure discontinued [facility] Work Phone: Start: 08-30-2021 Taking patient vital signs [facility] Work Phone: Start: 08-30-2021 Vital signs measurements [facility] Work Phone: Start: 08-30-2021 [facility] Work Phone: Start: 05-25-2021 DEPRESSION ASSESSMENT DEPRESSION ASS ESSMENT [facility] Start: 01-23-2021 Influenza vaccination INFLUENZA (#1) [facility] Start: 11-13-2016 End: 11-13-2016 Appointment Appointment [facility] Work Phone: Start: 2016 Pneumococcal vaccination Pneum ococcal Vaccine (1 of 2 - PCV) [facility] Start: 2015 Anxiety Screening Anxiety Screening [facility] Start: 2015 Depression Screening Depression Scre ening [facility] Start: 2015 HEPATITIS C SCREENING HEPATITIS C [facility] Start: 2015 Hepatitis C screening Hepatitis C [facility] Start: 2012 HPV Vaccine (1 - 3-d ose series) HPV Vaccine (1 - 3-dose series) [facility] Start: 2011 PEDS TO ADULT TRANSI TION ANNUAL ASSESSMENT PEDS TO ADULT TRANSITION ANNUAL ASSESSMENT [facility] Start: 2009 Adult depression screening assessment DEPRESSION SCREENING [facility] Start: 2009 PEDS TO ADULT TRANSI TION INITIAL DISCUSSION PEDS TO ADULT TRANSITION INITIAL DISCUSSION [facility] Start: 2008 HPV VACCINE (1 - 2-d ose series) HPV VACCINE (1 - 2-dose series) [facility] Start: 2007 MENINGOCOCCAL B: 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 parking 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 based on risk (1 of 2 - Risk Bexsero 2-dose series) MENINGOCOCCAL B: Consider based on risk (1 of 2 - Risk Bexsero 2-dose series) [facility] Start: 2006 HPV VACCINE (1 - 2-d ose series) HPV VACCINE (1 - 2-dose series) [facility] Start: 2003 PNEUMOCOCCAL (1 - PCV) PNEUMOCOCCAL (1 - PCV) [facility] Start: 2003 Pneumococcal vaccination Pneum ococcal Vaccine (1 of 2 - PCV) [facility] Start: 2002 COVID-19 VACCINE (#1) COVID-19 VACCI NE (#1) [facility] Start: 2002 COVID-19 VACCINE (1) COVID-19 VACCIN E (1) [facility] Start: 1997 COVID-19 VACCINE (#1) COVID-19 VACCI NE (#1) [facility] 9vhpv vacc 2/3 dose sched im use HPV VACCINE, 9-VALENT (GARDASIL 9) Immunization/Injection Routine Need for prophylactic vaccination/inoculation against viral disease Ordered: 01/20/2024 [facility] Comment on above: Ordered: 01/20/2024 Bacteria identified in Urine by Culture URINE CULTURE Microbiology Routine Urinary frequency 04/23/2022 10:12 AM [facility] Work Phone: BACTERIAL VAGINOSIS NAAT BACTERI AL VAGINOSIS NAAT Lab Routine Screen for STD (sexually transmitted disease) 01/20/2024 8:51 AM EDT [facility] LISA/TRICHOMONAS NAAT LISA /TRICHOMONAS NAAT Lab Routine Screen for STD (sexually transmitted disease) 01/20/2024 8:51 AM EDT [facility] Chlamydia trachomatis+Neisseria gonorrhoeae DNA [Presence] in Unspecified specimen by DORITA with probe detection GONORRHEA/CHLAMYDIA NAAT Lab Routine Screen for STD (sexually transmitted disease) 01/20/2024 8:51 AM EDT [facility] COVID & INFLUENZA A/ B & RSV NAAT, ROUTINE COVID & INFLUENZA A/B & RSV NAAT, ROUTINE Microbiology Routine Exposure to SARS-associated coronavirus 07/06/2023 11:53 AM [facility] Work Phone: PAP TEST PAP TEST Lab Rou sandip Screening for cervical cancer 01/20/2024 8:51 AM T [facility] Patient Education [facility] Work Phone: Patient referral [facility] Work Phone: Removal impacted cer umen irrigation/lvg unilat AMBULATORY EAR LAVAGE/IRRIGATION Procedures Routine Bilateral impacted cerumen Ordered: 10/27/2022 [facility] Work Phone: Comment on above: Ordered: 10/27/2022 Therapeutic prophylactic/dx injection subq/im THER/PROPH/DIAG INJ, SC/IM Procedures Routine Need for prophylactic vaccination/inoculation against viral disease Ordered: 01/20/2024 [facility] Work Phone: Comment on above: Ordered: 01/20/2024 [facility] Work Phone: Immunizations Immunization Date Immunization Notes Care Provider Karl braxton 02-25-2021 tetanus toxoid, redu phyllis diphtheria toxoid, and acellular pertussis vaccine, adsorbed [facility] 08-22-2019 tetanus toxoid, redu phyllis diphtheria toxoid, and acellular pertussis vaccine, adsorbed Veto Pickens MD Work Phone: [facility] 03-28-2019 influenza, injectabl e, quadrivalent, contains preservative Veto Pickens MD Work Phone: [facility] 03-28-2019 influenza virus vaccine, unspecified formulation Daniel Azul APRN.OLERICULTURIST Work Phone: [facility] 02-22-2019 Influenza virus vaccine [facility] 05-04-2017 tetanus toxoid, redu phyllis diphtheria toxoid, and acellular pertussis vaccine, adsorbed Veto Pickens MD Work Phone: [facility] 02-06-2017 Influenza virus vaccine [facility] 02-06-2017 influenza, injectabl e, quadrivalent, contains preservative Veto Pickens MD Work Phone: [facility] 07-27-2015 tetanus toxoid, redu phyllis diphtheria toxoid, and acellular pertussis vaccine, adsorbed Veto Pickens MD Work Phone: [facility] Work Phone: 05-01-2015 influenza, injectabl e, quadrivalent, contains preservative Veto Pickens MD Work Phone: [facility] Work Phone: 02-11-2011 tetanus toxoid, redu phyllis diphtheria toxoid, and acellular pertussis vaccine, adsorbed Luh Martinez MD Work Phone: [facility] 04-05-2007 hepatitis A vaccine, unspecified formulation Veto Pickens MD Work Phone: [facility] Work Phone: 04-05-2007 influenza virus vaccine, live, attenuated, for intranasal use Veto Pickens MD Work Phone: [facility] Work Phone: 01-09-2003 diphtheria, tetanus toxoids and acellular pertussis vaccine Veto Pickens MD Work Phone: [facility] 01-09-2003 measles, mumps and rubella virus vaccine Veto Pickens MD Work Phone: [facility] 01-09-2003 poliovirus vaccine, inactivated Veto Pickens MD Work Phone: [facility] 08-20-2000 diphtheria, tetanus toxoids and acellular pertussis vaccine Veto Pickens MD Work Phone: [facility] 08-20-2000 measles, mumps and rubella virus vaccine Veto Pickens MD Work Phone: [facility] 08-20-2000 poliovirus vaccine, inactivated Veto Pickens MD Work Phone: [facility] 08-20-2000 varicella virus vaccine Yolanda Pickens MD Work Phone: [facility] 10-09-1998 diphtheria, tetanus toxoids and acellular pertussis vaccine, unspecified formulation Luh Martinez MD Work Phone: [facility] 10-09-1998 trivalent poliovirus vaccine, live, oral Luh Martinez MD Work Phone: [facility] 07-10-1998 measles, mumps and rubella virus vaccine Luh Martinez MD Work Phone: [facility] 01-19-1998 hepatitis B vaccine, pediatric or pediatric/adolescent dosage Veto Pickens MD Work Phone: [facility] 1997 diphtheria, tetanus toxoids and acellular pertussis vaccine Veto Pickens MD Work Phone: [facility] 1997 haemophilus influenz ae type b vaccine, HbOC conjugate Veto Pickens MD Work Phone: [facility] 1997 poliovirus vaccine, inactivated Veto Pickens MD Work Phone: [facility] 1997 diphtheria, tetanus toxoids and acellular pertussis vaccine Veto Pickens MD Work Phone: [facility] 1997 haemophilus influenz ae type b vaccine, HbOC conjugate Veto Pickens MD Work Phone: [facility] 1997 trivalent poliovirus vaccine, live, oral Luh Martinez MD Work Phone: [facility] 1997 diphtheria, tetanus toxoids and acellular pertussis vaccine Veto Pickens MD Work Phone: [facility] 1997 haemophilus influenz ae type b vaccine, HbOC conjugate Veto Pickens MD Work Phone: [facility] 1997 hepatitis B vaccine, pediatric or pediatric/adolescent dosage Luh Martinez MD Work Phone: [facility] 1997 poliovirus vaccine, inactivated Veto Pickens MD Work Phone: [facility] 1997 hepatitis B vaccine, pediatric or pediatric/adolescent dosage Veto Pickens MD Work Phone: [facility] 1997 hepatitis B vaccine, pediatric or pediatric/adolescent dosage Veto Pickens MD Work Phone: [facility] NEGATED: Highlighted row has not occurred!01-20-2024 Human Papillomavirus 9-valent vaccine Luh Martinez MD Work Phone: [facility] Comment on above: Deferred: OTHER - Pa tient left Payers Date Payer Category Payer Unknown [id number] 2023 Self-pay [id number] 2020 Medicaid [facility] MEDICAID [id number] 2020-Present [phone] [address] [place] [address] Medicaid [id number] 2020 Medicaid [id number] 2017 Medicaid [id number] 2017 Unknown [id number] 2015 Unknown [id number] Unknown [id number] Unknown [id number] Unknown [id number] Unknown [id number] Social History Date Type Detail Facility Start: 06-07-2021 End: 08-21-2024 Tobacco smoking status NHIS Smokes tobacco daily [facility] Start: 06-07-2021 End: 01-20-2024 Tobacco use and exposure Smokeless tobacco non-user [facility] Start: 08-22-2021 End: 05-24-2024 Alcohol intake Ex-drinker (finding) [facility] Start: 03-24-2019 End: 10-27-2022 Tobacco Comment 2 cigarettes a day [facility] Start: 1997 Sex Assigned At Not on file [facility] Start: 08-12-2021 End: 04-23-2022 Exposure to SARS-CoV-2 (event) Not sure [facility] Work Phone: Start: 08-23-2021 End: 04-25-2023 Tobacco smoking status MDIS Unknown if ever smoked [facility] Start: 04-06-[address] [facility] Start: 04-06-[address] [facility] Start: 01-27-[address] [facility] Start: 1997 Sex Assigned At Female [facility] History of tobacco use Cigarette Smoker [facility] Start: 05-02-2020 End: 06-29-2023 History of Social function [facility] Start: 05-02-2020 End: 06-29-2023 Tobacco use panel [facility] Last EPDS Self Harm Result Not on file [facility] Start: 08-21-2024 Sex Female (finding) [facility] NEGATED: Highlighted row [facility] Goals Date Patient Goal Desired Activity /State Mental Status Date Assessment Result Facility 07-08-2024 Cognitive function Level Of Cons ciousness Awake;Alert;Appropriate [facility] Work Phone: 06-15-2022 Cognitive function Level Of Cons ciousness Awake;Alert;Appropriate;Follow s Commands [facility] Work Phone: 04-25-2022 Cognitive function Level Of Cons ciousness Awake;Alert;Appropriate [facility] Work Phone: 08-30-2021 Cognitive function Voice/Name [facility] Work Phone: Clinical Notes 09-05-2019 to 08-21-2024 Note Date & Type Note Facility 08-21-2024 Discharge summary [facility] 08-21-2024 Radiology Diagnostic study note [facility] Services [address] [place] [address] Elbow min 3 Views MR#: [id number] Acct: [id number] Name: LAURIE CHRISTIE Rep #: [id number] : 1995 F 29 From: Niecy Morris MD PCP: Care Physician,No Primary Status: REG ER Study:Elbow min 3 Views Date of Exam: Exam# [id number] Ordering Dr: Julius De La Fuente DO EXAM: RIGHT ELBOW, THREE VIEWS CLINICAL HISTORY: RIGHT ELBOW PAIN. COMPARISON: NO RELEVANT PRIOR. TECHNIQUE: AP, LATERAL, AND OBLIQUE. FINDINGS: No fractures, dislocations, or subluxations. No other osseous abnormalities. Soft tissues are unremarkable. RAD/Elbow min 3 Views IMPRESSION: NORMAL RIGHT ELBOW Reading Location: [facility] CC: Dr. Inderjit De La Fuente DO; No Primary Care Physician ~ Production Control Technologist: Signed [facility] 08-21-2024 Discharge summary Note Date/Time August 21, 2024 9:28pm [facility] Medical Records Department [address] [place] [address] Emergency Department Summary 08/21/24 MR#: [id number] Acct: [id number] Name: LAURIE CHRISTIE Rep #:[id number] : 1995 29 From: Inderjit Sanford PCP: Care Physician,No Primary Status :REG ER Location: ED HPI History of Present Illness Chief Complaint: Fall PFSH PFSH Medical History Wears glasses Smoker Home Medications ?Medication ?Instructions ?Recorded ?Last Taken ?Type epinephrine 0.3 mg/0.3 mL 0.3 mg (0.3 mL) IM Q4H PRN 1 06/27/22 Unknown Rx injection, auto-injector (EpiPen) anaphylaxis #2 ea hydrocodone-acetaminophen 5-325mg 1 tab PO Q4H PRN PRN Pain 4 days 07/08/24 Unknown Rx 5mg-325mg #12 TABLETS Allergy/AdvReac Type Severity Reaction Status Date / Time No Known Allergies Allergy Verified 08/21/24 20:18 Surgical History History of D&C Social History Smoking Status: Current every day smoker tobacco type: e-cigarettes EXAM Physical Exam Const Vital Signs: 08/21/24 20:18 Temperature 98.2 F Temperature Source Oral Pulse Rate 95 Respiratory Rate 18 Blood Pressure 128/92 H Blood Pressure Mean 104 Pulse Ox 100 Oxygen Delivery Method Room Air MDM MDM MDM Narrative Medical decision making narrative: HISTORY OF PRESENT ILLNESS: Chief complaint: Fall 29-year-old female presents after fall. States she fell down 2 steps. She notes right elbow, right ankle and right buttock pain. No head trauma, no loss of consciousness. She notes she was ambulatory after the event. 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 REVIEW OF SYSTEMS: Pertinent positives: Right elbow, right ankle and right buttock pain. Pertinent negatives: Head trauma, loss of consciousness PHYSICAL EXAM: Nursing triage notes reviewed, Vital signs reviewed Primary Survey Airway: Intact Breathing: Bilateral breath sounds Circulation: Palpable bilateral femorals, Palpable bilateral radial, Palpable bilateral DP and Palpable bilateral PT Disability / Spine precautions GCS Score: Eye Openin Verbal Response: 5 Motor Response: 6 Secondary Survey Constitutional: Please see MDM Head: Atraumatic, Midface stable, NO jaw malocclusion, No Cephalohematoma, and No Lacerations noted Eye: Pupils equal round and reactive to light, Extraocular muscles intact and Noperiorbital ecchymosis or stepoff, no evidence of entrapment ENT: Oropharynx clear, no lacerations, no hemotympanum, no raccoon eyes or wheeler sign Cervical spine / Neck: No cervical spine bony tenderness, crepitance, or stepoffdeformity Trachea midline Lungs: Clear to auscultation, No asymmetric rise and No crepitus, no flail chest Cardiac: Regular rate and rhythm and No murmurs Abdomen: Soft, Nontender and No rebound Pelvis: Pelvis stable to compression : No evidence of genital injury Back: No midline bony tenderness to thoracic/lumbar/sacral spines Neuro: intact 5/5 strength with ok sign (median), intact finger abduction (ulnar) intact wrist extension (radial n). Intact sensation in the radial, ulnar, and median nerve distributions. Intact sensation L1-S1 dermatomal distributions. Intact 5/5 strength in hip flexion (T12-L3). Knee extension (L2-L4). Ankle dorsiflexion (L4-L5). Ankle plantar flexion (S1). Great toe extension (L5). 2+ patellar and Achilles DTRs. Extremities: NO gross Deformities, TTP of right elbow, intact flexion extension right elbow. Intact wrist supination pronation. Right hip with full range of motion. No obvious tenderness palpation. Patient is bearing weight fully. Sheis walking with a nonantalgic gait. Patient right ankle had full range of motion. Was not swollen. No TTP. Psych: Normal affect Nursing triage notes reviewed, Vital signs reviewed MEDICAL DECISION MAKING: Chief Complaint: please see HPI External records reviewed: Reviewed prior imaging studies Factors affecting care: none Social determinants of health: none History obtained from others: none Consults: none [facility] Narrative: Patient was initially hemodynamically stable, afebrile and nontoxic-appearing. Exam without obvious deformities. The patient did have TTP over right elbow. Terms of her hip and ankle pain. Patient was bearing weight. She displayed no deformities. She displayed full range of motion. She had no significant tenderness to palpation. I suspect she has any fracture dislocation of the ankle or hip. I considered the following differential diagnosis: Fracture dislocation of rightelbow, elbow contusion. I obtained an x-ray. ALL IMAGES (IF OBTAINED) HAVE BEEN PERSONALLY REVIEWED AND INTERPRETED BY MYSELF. X-ray of the right elbow was read reviewed personally myself show no evidence ofobvious bony abnormality. Tertiary exam without new traumatic injury. The patient is appropriate discharge home. The patient and/or family, caregivers express understanding. The patient and/orfamily, caregivers agrees with the plan. Shared decision making: I will have a discussion with the patient and or visitors regarding risk/benefits of further testing or admission. They will be made aware of of the risk/benefits inherent in this decision they will be given the opportunity to voice understanding. Total critical care time today provided was at least 0 [] minutes. This excludes separately billable procedures. Critical care time (if documented) is secondary to the patient having high probability of clinically significant/life threatening deterioration in the patient's condition which required my urgent intervention. Impression: 1. Fall 2. Acute elbow contusion 3. Acute right hip contusion 4. Acute right ankle contusion Dispo: Discharge home This note was generated with [employer] dictation software. It may contain incorrect words, spelling, and punctuation that were not noted in review of the chart prior to signing. Discharge Plan Triage Chief Complaint: Fall ED Provider: Inderjit De La Fuente Dx/Rx/DC Orders Prescriptions: No Action epinephrine [EpiPen] 0.3 mg/0.3 mL auto-injector 0.3 mg IM Q4H PRN (Reason: anaphylaxis) Qty: 2 0RF hydrocodone-acetaminophen 5-325 mg tablet 1 tab PO Q4H PRN PRN (Reason: Pain) 4 Days Qty: 12 0RF Primary Care Provider: Care Physician,No Primary Referrals: Care Physician,No Primary [Primary Care Provider] - Print Language: Fijian What to do if you have Problems For any increased pain, shortness of breath, bleeding, nausea or vomiting, chestpain, or any unexpected problems, contact your Primary Care Provider. Call [facility] ([phone]) or report to the closest Emergency Room. Call 911 if necessary. [id number]/21/[id number] <Electronically signed by Inderjit De La Fuente DO> Cosigner Signature (if applicable): CC: No Primary Care Physician ~ Signed [facility] Work Phone: [phone]) 650-506012-31-2024 NoteHNO ID: [id number] Author: GAGANDEEP FERREIRA APRN.OLERICULTURIST Service: ? Author Type: Nurse Practitioner Type: Progress Notes Filed: 05/24/2024 12:27 Note Text: Subjective HPI Nontoxic-appearing female presents urgent care chief complaint right ear pain. Duration of symptoms 1 week. Associated symptoms right ear and jaw pain. Presents today for evaluation. No ear trauma otorrhea or loss hearing. Motrin has helped with pain management. No pain currently. Increased pain prior to Motrin this morning. Past medical history prescription medications allergies reviewed. Risk factors trismus. .Patient presents with: Ear Pain: Right ear pain x 1 week PAST MEDICAL HISTORY Diagnosis Date Anemia in 07/30/2015 Gestational hypertension Menarche 2009 Age [age] Mental disorder Anxiety Attacks PMH - PAST MEDICAL HISTORY OF 03/2007 normal color vision PAST SURGICAL HISTORY Procedure Laterality Date DANDC (INCOMPLETE AB), ANY TRIMESTER [id number]/29/2019 SALPINGECTOMY Bilateral 08/30/2021 laparoscopic ALLERGIES Patient has no known allergies. MEDICATIONS clotrimazole-betamethasone (LOTRISONE) cream Apply 1 application to affected area two times a day. hydrOXYzine HCl (ATARAX) 25 mg tablet Take 1 tablet by mouth three times a day as needed. (Patient not taking: Reported on 05/24/2024) FAMILY HISTORY Problem Relation Age of Onset other (anxiety) Mother Psychiatry Father bipolar No Known Problems Sister No Known Problems Sister other (ADHD) Sister other (ADHD) Brother No Known Problems Brother No Known Problems Brother COPD Maternal Grandmother Psychiatry Maternal Grandfather No Known Problems Paternal Grandmother No Known Problems Paternal Grandfather Cancer Maternal Aunt No Known Problems Daughter No Known Problems Daughter Social History Tobacco Use Smoking status: Every Day Types: Cigarettes Smokeless tobacco: Never Tobacco comments: 2 cigarettes a day Vaping Use Vaping status: Never Used Substance Use Topics Alcohol use: Not Currently Drug use: Never BP 110/72 Pulse 79 Temp 36.8 ?C (98.3 ?F) (Tympanic) Resp 16 Wt 75.3 kg (166 lb 0.1 oz) LMP 01/20/2024 SpO2 98% BMI 27.20 kg/m? Review of Systems Constitutional: Negative for chills, fever and malaise/fatigue. HENT: Positive for ear pain. Negative for congestion, ear discharge, sinus pain and sore throat. Eyes: Negative for blurred vision, pain, discharge and redness. Respiratory: Negative for cough, hemoptysis, sputum production, shortness of breath, wheezing and stridor. Cardiovascular: Negative for chest pain. Gastrointestinal: Negative for abdominal pain, diarrhea, nausea and vomiting. Musculoskeletal: Negative for myalgias. Skin: Negative for itching and rash. Neurological: Negative for dizziness and headaches. Objective Physical Exam Constitutional: General: She is not in acute distress. Appearance: She is not diaphoretic. HENT: Head: Normocephalic. Jaw: Pain on movement present. No trismus, tenderness or swelling. Comments: Pain with palpation over TMJ. Clicking noted. Right Ear: Tympanic membrane, ear canal and external ear normal. Left Ear: Tympanic membrane, ear canal and external ear normal. Mouth/Throat: Mouth: Mucous membranes are moist. Pharynx: Oropharynx is clear. Uvula midline. No pharyngeal swelling, oropharyngeal exudate, posterior oropharyngeal erythema or uvula swelling. Eyes: Conjunctiva/sclera: Conjunctivae normal. Pupils: Pupils are equal, round, and reactive to light. Cardiovascular: Rate and Rhythm: Normal rate and regular rhythm. Heart sounds: Normal heart sounds. Pulmonary: Effort: Pulmonary effort is normal. No tachypnea, accessory muscle usage or respiratory distress. Breath sounds: Normal breath sounds. No stridor. No wheezing, rhonchi or rales. Abdominal: General: There is no distension. Palpations: Abdomen is soft. Tenderness: There is no abdominal tenderness. There is no guarding or rebound. Musculoskeletal: Cervical back: Normal range of motion and neck supple. No edema, erythema, rigidity or tenderness. No pain with movement. Normal range of motion. Lymphadenopathy: Cervical: No cervical adenopathy. Skin: General: Skin is warm and dry. Neurological: Mental Status: She is alert and oriented to person, place, and time. ASSESSMENT/PLAN: 1. 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 No evidence of infection. Referred to dentistry. Patient was educated on supportive therapies. Patient will follow up with primary care provider as needed. Patient was instructed to immediately proceed to emergency room for any new, worsening, or symptoms lasting longer than anticipated. The patient's clinical presentation is otherwise unremarkable at this time. Based on exam and clinical finding, the patient is stable for discharge. Plan of care was discussed with patient. (more content not included)...[facility] 05-24-2024 History of Present illness Narrative* Gagandeep Ferreira APRN.OLERICULTURIST - 05/24/2024 12:25 PM EST Subjective HPI Nontoxic-appearing female presents urgent care chief complaint right ear pain. Duration of symptoms1 week. Associated symptoms right ear and jaw pain. Presents today for evaluation. No ear trauma otorrhea or loss hearing. Motrin has helped with pain management. No pain currently. Increased pain prior to Motrin this morning. Past medical history prescription medications allergies reviewed. Risk factors trismus. .Patient presents with: Ear Pain: Right ear pain x 1 week PAST MEDICAL HISTORY Diagnosis Date Anemia in 07/30/2015 Gestational hypertension Menarche 2009 Age 13.5 Mental disorder Anxiety Attacks PMH - PAST MEDICAL HISTORY OF 03/2007 normal color vision PAST SURGICAL HISTORY Procedure Laterality Date D&C (INCOMPLETE AB), ANY TRIMESTER 2016&01/29/2019 SALPINGECTOMY Bilateral 08/30/2021 laparoscopic ALLERGIES Patient has no known allergies. MEDICATIONS clotrimazole-betamethasone (LOTRISONE) cream Apply 1 application to affected area two times a day. hydrOXYzine HCl (ATARAX) 25 mg tablet Take 1 tablet by mouth three times a day as needed. (Patient not taking: Reported on 05/24/2024) FAMILY HISTORY Problem Relation Age of Onset other (anxiety) Mother Psychiatry Father bipolar No Known Problems Sister No Known Problems Sister other (ADHD) Sister other (ADHD) Brother No Known Problems Brother No Known Problems Brother COPD Maternal Grandmother Psychiatry Maternal Grandfather No Known Problems Paternal Grandmother No Known Problems Paternal Grandfather Cancer Maternal Aunt No Known Problems Daughter No Known Problems Daughter Social History Tobacco Use Smoking status: Every Day Types: Cigarettes Smokeless tobacco: Never Tobacco comments: 2 cigarettes a day Vaping Use Vaping status: Never Used Substance Use Topics Alcohol use: Not Currently Drug use: Never BP 110/72 Pulse 79 Temp 36.8 C (98.3 F) (Tympanic) Resp 16 Wt 75.3 kg (166 lb 0.1 oz) [facility]01/20/2024 SpO2 98% BMI 27.20 kg/m Review of Systems Constitutional: Negative for chills, fever and malaise/fatigue. HENT: Positive for ear pain. Negative for congestion, ear discharge, sinus pain and sore throat. Eyes: Negative for blurred vision, pain, discharge and redness. Respiratory: Negative for cough, hemoptysis, sputum production, shortness of breath, wheezing and stridor. Cardiovascular: Negative for chest pain. Gastrointestinal: Negative for abdominal pain, diarrhea, nausea and vomiting. Musculoskeletal: Negative for myalgias. Skin: Negative for itching and rash. Neurological: Negative for dizziness and headaches. Objective Physical Exam Constitutional: General: She is not in acute distress. Appearance: She is not diaphoretic. HENT: Head: Normocephalic. Jaw: Pain on movement present. No trismus, tenderness or swelling. Comments: Pain with palpation over TMJ. Clicking noted. Right Ear: Tympanic membrane, ear canal and external ear normal. Left Ear: Tympanic membrane, ear canal and external ear normal. Mouth/Throat: Mouth: Mucous membranes are moist. Pharynx: Oropharynx is clear. Uvula midline. No pharyngeal swelling, oropharyngeal exudate, posterior oropharyngeal erythema or uvula swelling. Eyes: Conjunctiva/sclera: Conjunctivae normal. Pupils: Pupils are equal, round, and reactive to light. Cardiovascular: Rate and Rhythm: Normal rate and regular rhythm. Heart sounds: Normal heart sounds. Pulmonary: Effort: Pulmonary effort is normal. No tachypnea, accessory muscle usage or respiratory distress. Breath sounds: Normal breath sounds. No stridor. No wheezing, rhonchi or rales. Abdominal: General: There is no distension. Palpations: Abdomen is soft. Tenderness: There is no abdominal tenderness. There is no guarding or rebound. Musculoskeletal: Cervical back: Normal range of motion and neck supple. No edema, erythema, rigidity or tenderness. No pain with movement. Normal range of motion. Lymphadenopathy: Cervical: No cervical adenopathy. Skin: General: Skin is warm and dry. Neurological: Mental Status: She is alert and oriented to person, place, and time. ASSESSMENT/PLAN: 1. 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 No evidence of infection. Referred to dentistry. Patient was educated on supportive therapies. Patient will follow up with primary care provider as needed. Patient was instructed to immediately proceed to emergency room for any new, worsening, or symptoms lasting longer than anticipated. The patient's clinical presentation is otherwise unremarkable at this time. Based on exam and clinical finding, the patient is stable for discharge. Plan of care was discussed with patient. Patient verbalizes understanding and agrees to plan of care. This note was generated using Narvii software. It may contain errors in wording, punctuation, or spelling. Gagandeep Ferreira APRN.OLERICULTURIST documented [facility]24 NoteHNO ID: [id number] Author: GAGANDEEP FERREIRA APRN.OLERICULTURIST Service: ? Author Type: Nurse Practitioner Type: Progress Notes Filed: 03/08/2024 11:33 Note Text: Subjective HPI Nontoxic female presents urgent care complaint back pain nausea headache. Additionally has had pruritus for greater than 2 months. Presents today for evaluation. No OTC medication use. Denies any fever or vomiting. No recent medication changes antibiotic use. Past medical history prescription medications allergies reviewed. .Patient presents with: Low Back Pain: nausea x this am and headache x 3 days PAST MEDICAL HISTORY Diagnosis Date Anemia in 07/30/2015 Gestational hypertension Menarche 2009 Age [age] Mental disorder Anxiety Attacks PMH - PAST MEDICAL HISTORY OF 03/2007 normal color vision PAST SURGICAL HISTORY Procedure Laterality Date DANDC (INCOMPLETE AB), ANY TRIMESTER [id number]/29/2019 SALPINGECTOMY Bilateral 08/30/2021 laparoscopic ALLERGIES Patient has no known allergies. MEDICATIONS clotrimazole-betamethasone (LOTRISONE) cream Apply 1 application to affected area two times a day. (Patient not taking: Reported on 03/08/2024) FAMILY HISTORY Problem Relation Age of Onset other (anxiety) Mother Psychiatry Father bipolar No Known Problems Sister No Known Problems Sister other (ADHD) Sister other (ADHD) Brother No Known Problems Brother No Known Problems Brother COPD Maternal Grandmother Psychiatry Maternal Grandfather No Known Problems Paternal Grandmother No Known Problems Paternal Grandfather Cancer Maternal Aunt No Known Problems Daughter No Known Problems Daughter Social History Tobacco Use Smoking status: Every Day Types: Cigarettes Smokeless tobacco: Never Tobacco comments: 2 cigarettes a day Vaping Use Vaping status: Never Used Substance Use Topics Alcohol use: Not Currently Drug use: Never BP 104/60 Pulse 78 Temp 36.1 ?C (96.9 ?F) Resp 16 Wt 77.9 kg (171 lb 11.8 oz) LMP 01/20/2024 SpO2 100% BMI 28.14 kg/m? Review of Systems Constitutional: Negative for chills, fever and malaise/fatigue. HENT: Negative for congestion, ear discharge, ear pain, sinus pain and sore throat. Eyes: Negative for blurred vision, pain, discharge and redness. Respiratory: Negative for cough, hemoptysis, sputum production, shortness of breath, wheezing and stridor. Cardiovascular: Negative for chest pain. Gastrointestinal: Positive for nausea. Negative for abdominal pain, diarrhea and vomiting. Genitourinary: Negative. Musculoskeletal: Positive for back pain. Negative for myalgias. Skin: Positive for itching and rash. Neurological: Positive for headaches. Negative for dizziness. Objective Physical Exam Constitutional: General: She is not in acute distress. Appearance: She is not diaphoretic. HENT: Head: Normocephalic. Jaw: No trismus, tenderness, swelling or pain on movement. Mouth/Throat: Mouth: Mucous membranes are moist. Pharynx: Oropharynx is clear. Uvula midline. No pharyngeal swelling, oropharyngeal exudate, posterior oropharyngeal erythema or uvula swelling. Eyes: Conjunctiva/sclera: Conjunctivae normal. Pupils: Pupils are equal, round, and reactive to light. Cardiovascular: Rate and Rhythm: Normal rate and regular rhythm. Heart sounds: Normal heart sounds. Pulmonary: Effort: Pulmonary effort is normal. No tachypnea, accessory muscle usage or respiratory distress. Breath sounds: Normal breath sounds. No stridor. No wheezing, rhonchi or rales. Abdominal: General: There is no distension. Palpations: Abdomen is soft. Tenderness: There is no abdominal tenderness. There is no guarding or rebound. Musculoskeletal: Cervical back: Normal range of motion and neck supple. No edema, erythema, rigidity or tenderness. No pain with movement. Normal range of motion. Thoracic back: Normal. Lumbar back: Normal. Lymphadenopathy: Cervical: No cervical adenopathy. Skin: General: Skin is warm and dry. Comments: Some areas of excoriation noted on abdomen upper legs. No remote redness or drainage. No evidence of infection. Neurological: Mental Status: She is alert and oriented to person, place, and time. ASSESSMENT/PLAN: 1. Acute midline low back pain without sciatica - ICD9: 724.2, ICD10: M54.50 (primary diagnosis) - UA DIP, URINE (POC) 2. Rash - ICD9: 782.1, ICD10: R21 Urine dip negative. Treat as muscle skeletal back pain. Additionally diagnosed with rash. Use steroid cream as instructed. Atarax use as needed. Follow-up with dermatology. Patient was educated on supportive therapies. Patient will follow up with primary care provider as needed. Patient was instructed to immediately proceed to emergency room for any new, worsening, or symptoms lasting longer than anticipated. The patient's clinical presentation is otherwise unremarkable at this time. Based on exam and clinical finding, t (more content not included)...[facility]10-15-2024 History of Present illness Narrative* Gagandeep Ferreira, KIRTI.OLERICULTURIST - 03/08/2024 11:01 AM EDT Subjective HPI Nontoxic female presents urgent care complaint back pain nausea headache. Additionally has had pruritus for greater than 2 months. Presents today for evaluation. No OTC medication use. Denies any fever or vomiting. No recent medication changes antibiotic use. Past medical history prescription medications allergies reviewed. .Patient presents with: Low Back Pain: nausea x this am and headache x 3 days PAST MEDICAL HISTORY Diagnosis Date Anemia in 07/30/2015 Gestational hypertension Menarche 2009 Age 11.5 Mental disorder Anxiety Attacks PMH - PAST MEDICAL HISTORY OF 03/2007 normal color vision PAST SURGICAL HISTORY Procedure Laterality Date D&C (INCOMPLETE AB), ANY TRIMESTER 2016&01/29/2019 SALPINGECTOMY Bilateral 08/30/2021 laparoscopic ALLERGIES Patient has no known allergies. MEDICATIONS clotrimazole-betamethasone (LOTRISONE) cream Apply 1 application to affected area two times a day. (Patient not taking: Reported on 03/08/2024) FAMILY HISTORY Problem Relation Age of Onset other (anxiety) Mother Psychiatry Father bipolar No Known Problems Sister No Known Problems Sister other (ADHD) Sister other (ADHD) Brother No Known Problems Brother No Known Problems Brother COPD Maternal Grandmother Psychiatry Maternal Grandfather No Known Problems Paternal Grandmother No Known Problems Paternal Grandfather Cancer Maternal Aunt No Known Problems Daughter No Known Problems Daughter Social History Tobacco Use Smoking status: Every Day Types: Cigarettes Smokeless tobacco: Never Tobacco comments: 2 cigarettes a day Vaping Use Vaping status: Never Used Substance Use Topics Alcohol use: Not Currently Drug use: Never BP 104/60 Pulse 78 Temp 36.1 C (96.9 F) Resp 16 Wt 77.9 kg (171 lb 11.8 oz) LMP 01/20/2024 SpO2 100% BMI 28.14 kg/m Review of Systems Constitutional: Negative for chills, fever and malaise/fatigue. HENT: Negative for congestion, ear discharge, ear pain, sinus pain and sore throat. Eyes: Negative for blurred vision, pain, discharge and redness. Respiratory: Negative for cough, hemoptysis, sputum production, shortness of breath, wheezing and stridor. Cardiovascular: Negative for chest pain. Gastrointestinal: Positive for nausea. Negative for abdominal pain, diarrhea and vomiting. Genitourinary: Negative. Musculoskeletal: Positive for back pain. Negative for myalgias. Skin: Positive for itching and rash. Neurological: Positive for headaches. Negative for dizziness. Objective Physical Exam Constitutional: General: She is not in acute distress. Appearance: She is not diaphoretic. HENT: Head: Normocephalic. Jaw: No trismus, tenderness, swelling or pain on movement. Mouth/Throat: Mouth: Mucous membranes are moist. Pharynx: Oropharynx is clear. Uvula midline. No pharyngeal swelling, oropharyngeal exudate, posterior oropharyngeal erythema or uvula swelling. Eyes: Conjunctiva/sclera: Conjunctivae normal. Pupils: Pupils are equal, round, and reactive to light. Cardiovascular: Rate and Rhythm: Normal rate and regular rhythm. Heart sounds: Normal heart sounds. Pulmonary: Effort: Pulmonary effort is normal. No tachypnea, accessory muscle usage or respiratory distress. Breath sounds: Normal breath sounds. No stridor. No wheezing, rhonchi or rales. Abdominal: General: There is no distension. Palpations: Abdomen is soft. Tenderness: There is no abdominal tenderness. There is no guarding or rebound. Musculoskeletal: Cervical back: Normal range of motion and neck supple. No edema, erythema, rigidity or tenderness. No pain with movement. Normal range of motion. Thoracic back: Normal. Lumbar back: Normal. Lymphadenopathy: Cervical: No cervical adenopathy. Skin: General: Skin is warm and dry. Comments: Some areas of excoriation noted on abdomen upper legs. No remote redness or drainage. No evidence of infection. Neurological: Mental Status: She is alert and oriented to person, place, and time. ASSESSMENT/PLAN: 1. Acute midline low back pain without sciatica - ICD9: 724.2, ICD10: M54.50 (primary diagnosis) - UA DIP, URINE (POC) 2. Rash - ICD9: 782.1, ICD10: R21 Urine dip negative. Treat as muscle skeletal back pain. Additionally diagnosed with rash. Use steroid cream as instructed. Atarax use as needed. Follow-up with dermatology. Patient was educated on supportive therapies. Patient will follow up with primary care provider as needed. Patient was instructed to immediately proceed to emergency room for any new, worsening, or symptoms lasting longer thananticipated. The patient's clinical presentation is otherwise unremarkable at this time. Based on exam and clinical finding, the patient is stable for discharge. Plan of care was discussed with patient. Patient verbalizes understanding and agrees to plan of care. This note was generated using Narvii software. It may contain errors in wording, punctuation, or spelling. Gagandeep Ferreira APRN.ELA documented in this encounterWestern [facility]10-[facility]-2024 NoteHNO ID: [id number] Author: GEE MARTEL MD Service: ? Author Type: Physician Type: Progress Notes Filed: 02/23/2024 23:37 Note Text: The patient presents for requested ultrasound. Full report available in the Imaging tab in Epic. Gee Martel [facility]10-01-2024 History of Present illness Narrative* Gee Martel MD - 02/23/2024 8:30 AM EDT The patient presents for requested ultrasound. Full report available in the Imaging tab in Epic. Gee Martel MD documented in this encounterWestern [facility]08-28-2024 NoteHNO ID: [id number] Author: VICK BARCENAS MA Service: ? Author Type: Environmental Health Specialist Type: Progress Notes Filed: 01/20/2024 09:33 Note Text:[facility]08-[facility] History of Present illness Narrative* Vick Barcenas MA - 01/20/2024 8:36 AM EDT * Luh Drew MD - 01/20/2024 8:19 AM EDT Flag Maker offered: Patient declines. Laurie is a 28 year old who presents for an annual gynecologic exam with complaints, c/o itching and discharge- clear and tinted white started 3-4 months ago. Pt reports no new sexual partners- not sure if is faithful. No odor, but is itching. No h/o stds no changes in soaps or detergents, no fever, no pain on urination. Pt reports last month menses was late, menses more painful recently , external irritation on vaginal near clitoris per patient. Menses: cycles every 28-30 days and 3-4 days of flow. Contraception: tubal sterilization HPV vaccine: No Last Pap: 07/23/2021 normal HPV: N/A History of abnormal pap: No Last mammogram: never Sexually active: Yes History of STDS: None Pain with intercourse: No Postcoital bleeding: No Exercise: walking Diet: balanced OB History T3 L3 SAB0 IAB0 Ectopic0 Multiple0 Live Births3 Behavioral Health Clinician History LMP: 01/20/2024, Having periods Age at Menarche: Age at First : Age at Menopause: Behavioral Health Clinician History Comments: Sexual Activity: Yes; Male Contraception: Tubal Ligation PAST MEDICAL HISTORY 07/30/2015: Anemia in No date: Gestational hypertension 2009: Menarche Comment: Age 11.5 No date: Mental disorder Comment: Anxiety Attacks 03/2007: PMH - PAST MEDICAL HISTORY OF Comment: normal color visionPAST SURGICAL HISTORY 2016&01/29/2019: D&C (INCOMPLETE AB), ANY TRIMESTER 08/30/2021: SALPINGECTOMY; Bilateral Comment: laparoscopic FAMILY HISTORY Problem Relation Age of Onset other (anxiety) Mother Psychiatry Father bipolar No Known Problems Sister No Known Problems Sister other (ADHD) Sister other (ADHD) Brother No Known Problems Brother No Known Problems Brother COPD Maternal Grandmother Psychiatry Maternal Grandfather No Known Problems Paternal Grandmother No Known Problems Paternal Grandfather Cancer Maternal Aunt No Known Problems Daughter No Known Problems Daughter SOCIAL HISTORY Social History Tobacco Use Smoking status: Every Day Types: Cigarettes Smokeless tobacco: Never Tobacco comments: 2 cigarettes a day Vaping Use Vaping status: Never Used Substance Use Topics Alcohol use: Not Currently Drug use: Never REVIEW OF SYSTEMS Abdomen: No abdominal pain, nausea, vomiting, diarrhea, or constipation. No bloating, early satiety, indigestion, or increased flatulence. Bladder: No dysuria, gross hematuria, urinary frequency, urinary urgency, or incontinence. Breast: No breast lumps, nipple d/c, overlying skin changes, redness or skin retraction. Allergies and current medication updated:Yes EXAM: Ht 5' 5.5 (1.66m) Wt 178 lb (80.7kg) LMP 01/20/2024 BMI 29.16 kg/(m^2). GENERAL: pleasant, female in no apparent distress HEENT: Normocephalic, atraumatic, mucus membranes moist, and no lesions NECK: Supple, full range of motion, no adenopathy, and thyroid normal DERMATOLOGY: Normal, without lesions, non-icteric, and non-hirsute BREAST: soft, non-tender, symmetric, no dominant mass, normal nipple-areolar complex, no lymphadenopathy, and no nipple discharge ABDOMEN: soft, non-tender, and no masses PELVIC: external genitalia normal, normal Bartholin's glands, urethra, [place]'s glands, no vulvar lesions, no cervical lesions, good vaginal support, physiologic discharge present, normal appearing perineal body and perianal region BIMANUAL: uterus normal size, shape and consistency, ? Fullness in right adnexa, and tender in right RECTOVAGINAL: deferred. NEURO: alert and oriented x3,exam grossly non-focal EXTREMITIES: normal ASSESSMENT/PLAN: (Z01.419) Encounter for gynecological examination (general) (routine) without abnormal findings (primary encounter diagnosis) (Z12.4) Screening for cervical cancer (Z11.3) Screen for STD (sexually transmitted disease) (Z23) Need for prophylactic vaccination/inoculation against viral disease (N94.6) Dysmenorrhea (R10.2) Pelvic pain in female (N93.9) Abnormal uterine bleeding (AUB) 1) Health maintenance: Pap done with reflex HPV. Mammogram starting age 40. Nutrition, exercise and routine health maintenance exams reviewed. HPV vaccine: ordered 2) Contraception: tubal sterilization. Contraceptive options reviewed and information provided. 3) STD screening: Accepted STD check for Gonorrhea and Chlamydia. BV/yeast/trich 4) Follow up one year or sooner as needed 5) pelvic us 6) lotrisone ordered for external irritaiton Medical Decision Making: Problems: Moderate: New problem with uncertain prognosis Data: Unique test(s) ordered: 3+ Risk: Moderate: Drug management Medical Decision Making Level: 4 - Moderate Luh Jeronimo MD documented in this encounterWestern [facility] Hospital08-28-2024 Instructions* Patient Instructions* Vick Barcenas MA - 01/20/2024 8:36 AM EDT Gardasil Gardasil is a vaccine to protect against Human Papillomavirus (HPV) types 6, 11, 16, 18, 31,33,45, 52, 58. These viruses cause cancer and precancerous lesions on the cervix (opening between vagina and uterus), in the vagina and on the vulva (skin around the outside of the vagina) as well as genitalwarts. The vaccine cannot cause these diseases and cannot treat them if already present. Gardasil works best if given before contact with HPV. Most people are exposed to HPV soon after starting sexual activity. The vaccine is recommended between the ages of 9 and 45. Gardasil does not protect against all strains of HPV. Women who receive the vaccine still need to have regular pelvic exams and cervical cancer screening with the pap smear. You should ask your doctor if Gardasil is right for you if you have a weakened immune system, a bleeding disorder, plan to become soon or have a current illness causing fever. Gardasil is not recommended for women. You should be sure your doctor is aware of any allergies you have and all medications and herbal supplements you take. Gardasil is given to those ages 9-14 in 2 doses at 0 and 8 months. In ages 15- 45, three injections are given at 0,2,6 months. Common side effects include pain, redness, itching and swelling at the injection site, nausea, fever, dizziness and fainting. Rare but potentially serious reactions have been reported. These include allergic reaction, swollen glands, joint and muscle pain, weakness and Guillain-Broadus syndrome. documented in this encounterWestern [facility] Hospital08-28-2024 NoteHNO ID: [id number] Author: LUH DREW MD Service: ? Author Type: Physician Type: Progress Notes Filed: 01/20/2024 09:33 Note Text: Flag Maker offered: Patient declines. Laurie is a 28 year old who presents for an annual gynecologic exam with complaints, c/o itching and discharge- clear and tinted white started 3-4 months ago. Pt reports no new sexual partners- not sure if is faithful. No odor, but is itching. No h/o stds no changes in soaps or detergents, no fever, no pain on urination. Pt reports last month menses was late, menses more painful recently , external irritation on vaginal near clitoris per patient. Menses: cycles every 28-30 days and 3-4 days of flow. Contraception: tubal sterilization HPV vaccine: No Last Pap: 07/23/2021 normal HPV: N/A History of abnormal pap: No Last mammogram: never Sexually active: Yes History of STDS: None Pain with intercourse: No Postcoital bleeding: No Exercise: walking Diet: balanced OB History T3 L3 SAB0 IAB0 Ectopic0 Multiple0 Live Births3 Behavioral Health Clinician History LMP: 01/20/2024, Having periods Age at Menarche: Age at First : Age at Menopause: Behavioral Health Clinician History Comments: Sexual Activity: Yes; Male Contraception: Tubal Ligation PAST MEDICAL HISTORY 07/30/2015: Anemia in No date: Gestational hypertension 2009: Menarche Comment: Age 11.5 No date: Mental disorder Comment: Anxiety Attacks 03/2007: PMH - PAST MEDICAL HISTORY OF Comment: normal color visionPAST SURGICAL HISTORY [id number]/29/2019: DANDC (INCOMPLETE AB), ANY TRIMESTER 08/30/2021: SALPINGECTOMY; Bilateral Comment: laparoscopic FAMILY HISTORY Problem Relation Age of Onset other (anxiety) Mother Psychiatry Father bipolar No Known Problems Sister No Known Problems Sister other (ADHD) Sister other (ADHD) Brother No Known Problems Brother No Known Problems Brother COPD Maternal Grandmother Psychiatry Maternal Grandfather No Known Problems Paternal Grandmother No Known Problems Paternal Grandfather Cancer Maternal Aunt No Known Problems Daughter No Known Problems Daughter SOCIAL HISTORY Social History Tobacco Use Smoking status: Every Day Types: Cigarettes Smokeless tobacco: Never Tobacco comments: 2 cigarettes a day Vaping Use Vaping status: Never Used Substance Use Topics Alcohol use: Not Currently Drug use: Never REVIEW OF SYSTEMS Abdomen: No abdominal pain, nausea, vomiting, diarrhea, or constipation. No bloating, early satiety, indigestion, or increased flatulence. Bladder: No dysuria, gross hematuria, urinary frequency, urinary urgency, or incontinence. Breast: No breast lumps, nipple d/c, overlying skin changes, redness or skin retraction. Allergies and current medication updated:Yes EXAM: Ht 5' 5.5 (1.66m) Wt 178 lb (80.7kg) LMP 01/20/2024 BMI 29.16 kg/(m2). GENERAL: pleasant, female in no apparent distress HEENT: Normocephalic, atraumatic, mucus membranes moist, and no lesions NECK: Supple, full range of motion, no adenopathy, and thyroid normal DERMATOLOGY: Normal, without lesions, non-icteric, and non-hirsute BREAST: soft, non-tender, symmetric, no dominant mass, normal nipple-areolar complex, no lymphadenopathy, and no nipple discharge ABDOMEN: soft, non-tender, and no masses PELVIC: external genitalia normal, normal Bartholin's glands, urethra, [place]'s glands, no vulvar lesions, no cervical lesions, good vaginal support, physiologic discharge present, normal appearing perineal body and perianal region BIMANUAL: uterus normal size, shape and consistency, ? Fullness in right adnexa, and tender in right RECTOVAGINAL: deferred. NEURO: alert and oriented x3,exam grossly non-focal EXTREMITIES: normal ASSESSMENT/PLAN: (Z01.419) Encounter for gynecological examination (general) (routine) without abnormal findings (primary encounter diagnosis) (Z12.4) Screening for cervical cancer (Z11.3) Screen for STD (sexually transmitted disease) (Z23) Need for prophylactic vaccination/inoculation against viral disease (N94.6) Dysmenorrhea (R10.2) Pelvic pain in female (N93.9) Abnormal uterine bleeding (AUB) 1) Health maintenance: Pap done with reflex HPV. Mammogram starting age 40. Nutrition, exercise and routine health maintenance exams reviewed. HPV vaccine: ordered 2) Contraception: tubal sterilization. Contraceptive options reviewed and information provided. 3) STD screening: Accepted STD check for Gonorrhea and Chlamydia. BV/yeast/trich 4) Follow up one year or sooner as needed 5) pelvic us 6) lotrisone ordered for external irritaiton Medical Decision Making: Problems: Moderate: New problem with uncertain prognosis Data: Unique test(s) ordered: 3+ Risk: Moderate: Drug management Medical Decision Making Level: 4 - Moderate [facility]02-12-2024 NoteHNO ID: [id number] Author: INGA ESCOBAR APRN.OLERICULTURIST Service: ? Author Type: Nurse Practitioner Type: Progress Notes Filed: 07/06/2023 11:13 Note Text: SUBJECTIVE: Laurie Christie is a 28 year old female. Who presents today with congestion sore throat and sinus congestion for 10 days. She has not had a fever at home. She has taken motrin for the symptoms. She had a strep test done last week and it was negative. She still is not feeling better. She has had exposure to others who are sick her friends are + for covid. We will do covid testing today. HPI PAST MEDICAL HISTORY Diagnosis Date Anemia in 07/30/2015 Gestational hypertension Menarche 2009 Age [age] Mental disorder Anxiety Attacks PMH - PAST MEDICAL HISTORY OF 03/2007 normal color vision FAMILY HISTORY Problem Relation Age of Onset other (anxiety) Mother Psychiatry Father bipolar No Known Problems Sister No Known Problems Sister other (ADHD) Sister other (ADHD) Brother No Known Problems Brother No Known Problems Brother COPD Maternal Grandmother Psychiatry Maternal Grandfather No Known Problems Paternal Grandmother No Known Problems Paternal Grandfather Cancer Maternal Aunt No Known Problems Daughter No Known Problems Daughter Social History Tobacco Use Smoking status: Every Day Years: 1 Types: Cigarettes Smokeless tobacco: Never Tobacco comments: 2 cigarettes a day Vaping Use Vaping Use: Never used Substance Use Topics Alcohol use: Not Currently Drug use: Never ALLERGIES No Known Allergies No current outpatient medications on file. No current facility-administered medications for this visit. OBJECTIVE: BP 110/68 Pulse 86 Temp 36.4 ?C (97.6 ?F) Resp 16 Wt 83 kg (183 lb) LMP 07/25/2021 SpO2 99% BMI 29.54 kg/m? ROS: All systems reviewed and are otherwise negative Constitutional: Well developed, well nourished, AANDO X3. ENT: Head is atraumatic, airway patent, mucosal membranes moist pink no exudate no GOLF TECHNICIAN Neck: full ROM, no meningeal signs Cardiac: heart tones regular rate and rhythm Respiratory: lung CTA : no CVA tenderness MS: moves all extremities, no deformities noted Neuro: GCS 15 no focal deficits Skin: warm and dry with out rash, lesion or ecchymosis Psych: alert appropriate, speech clear Diagnostic testing: COVID, Influenza A, Influenza B and RSV testing performed and results will be complete in the next 24-72 hours. The patient will be notified of the results in My Chart. MDM: Patient presented to the [facility] for COVID, Influenza and RSV testing. Laurie Christie presents today with symptoms suspicious for likely viral upper respiratory infection. Differential includes bacterial pneumonia, sinusitis, allergic rhinitis, and bronchitis to name a few. At this time I do not suspect a serious underlying cardiopulmonary process. I considered, but think unlikely, dangerous causes of this patient?s symptoms to include ACS, CHF, COPD exacerbations, pneumonia or pneumothorax. Patient is nontoxic appearing and not in need of emergent medical intervention.Vital signs were evaluated and found to be within normal limits. We discussed the COVID results will be back in the next 1-2 days. In accordance with the CDC guidelines, Laurie Christie was instructed to quarantine, if indicated, based on symptoms and exposure. We have discussed over the counter medications to use for their symptoms. They may take Motrin and Tylenol for pain, body aches and fever. They will follow-up with their family doctor in the next 2-3 days. If symptoms worsen they will go straight to the emergency department for further evaluation and treatment. They voiced understanding of the plan of care and are in agreement. ASSESSMENT/PLAN: 1. Exposure to SARS-associated coronavirus - ICD9: V01.82, ICD10: Z20.828 - COVID AND INFLUENZA A/B AND RSV NAAT, ROUTINE Inga Escobar APRN.[facility]02-12-2024 History of Present illness Narrative* Inga Escobar APRN.ELA - 07/06/2023 11:04 AM EST SUBJECTIVE: Laurie Christie is a 28 year old female. Who presents today with congestion sore throat and sinus congestion for 10 days. She has not had a fever at home. She has taken motrin for the symptoms. She had a strep test done last week and it was negative. She still is not feeling better. She has had exposure to others who are sick her friends are + for covid. We will do covid testing today. HPI PAST MEDICAL HISTORY Diagnosis Date Anemia in 07/30/2015 Gestational hypertension Menarche 2009 Age 13.5 Mental disorder Anxiety Attacks PMH - PAST MEDICAL HISTORY OF 03/2007 normal color vision FAMILY HISTORY Problem Relation Age of Onset other (anxiety) Mother Psychiatry Father bipolar No Known Problems Sister No Known Problems Sister other (ADHD) Sister other (ADHD) Brother No Known Problems Brother No Known Problems Brother COPD Maternal Grandmother Psychiatry Maternal Grandfather No Known Problems Paternal Grandmother No Known Problems Paternal Grandfather Cancer Maternal Aunt No Known Problems Daughter No Known Problems Daughter Social History Tobacco Use Smoking status: Every Day Years: 1 Types: Cigarettes Smokeless tobacco: Never Tobacco comments: 2 cigarettes a day Vaping Use Vaping Use: Never used Substance Use Topics Alcohol use: Not Currently Drug use: Never ALLERGIES No Known Allergies No current outpatient medications on file. No current facility-administered medications for this visit. OBJECTIVE: BP 110/68 Pulse 86 Temp 36.4 C (97.6 F) Resp 16 Wt 83 kg (183 lb) LMP 07/25/2021 SpO2 99% BMI 29.54 kg/m ROS: All systems reviewed and are otherwise negative Constitutional: Well developed, well nourished, A&O X3. ENT: Head is atraumatic, airway patent, mucosal membranes moist pink no exudate no GOLF TECHNICIAN Neck: full ROM, no meningeal signs Cardiac: heart tones regular rate and rhythm Respiratory: lung CTA : no CVA tenderness MS: moves all extremities, no deformities noted Neuro: GCS 15 no focal deficits Skin: warm and dry with out rash, lesion or ecchymosis Psych: alert appropriate, speech clear Diagnostic testing: COVID, Influenza A, Influenza B and RSV testing performed and results will be complete in the next 24-72 hours. The patient will be notified of the results in My Chart. MDM: Patient presented to the [facility] for COVID, Influenza and RSV testing. Laurie Christie presentstoday with symptoms suspicious for likely viral upper respiratory infection. Differential includes bacterial pneumonia, sinusitis, allergic rhinitis, and bronchitis to name a few. At this time I do not suspect a serious underlying cardiopulmonary process. I considered, but think unlikely, dangerouscauses of this patient s symptoms to include ACS, CHF, COPD exacerbations, pneumonia or pneumothorax. Patient is nontoxic appearing and not in need of emergent medical intervention.Vital signs were evaluated and found to be within normal limits. We discussed the COVID results will be back in the next 1-2 days. In accordance with the CDC guidelines, Laurie Christie was instructed to quarantine, if indicated, based on symptoms and exposure. We have discussed over the counter medications to use fortheir symptoms. They may take Motrin and Tylenol for pain, body aches and fever. They will follow-up with their family doctor in the next 2-3 days. If symptoms worsen they will go straight to the emergency department for further evaluation and treatment. They voiced understandingof the plan of care and are in agreement. ASSESSMENT/PLAN: 1. Exposure to SARS-associated coronavirus - ICD9: V01.82, ICD10: Z20.828 - COVID & INFLUENZA A/B & RSV NAAT, ROUTINE Inga Escobar APRN.OLERICULTURIST [facility] NoteHNO ID: [id number] Author: DANIEL AZUL APRN.ELA Service: ? Author Type: Nurse Practitioner Type: Progress Notes Filed: 06/29/2023 11:01 Note Text: CC: Patient presents with: Sore Throat: x 3 days, nausea and upset stomach x 1 day HPI: Laurie Christie is a 28 year old female who presents to the office with complaint of sore throat for the past day. Symptoms are staying the same. Associated symptoms includes nausea. Denies fever and diarrhea. Treatments tried include nothing so far. with no relief of symptoms. Sick contacts: unknown. History of asthma, frequent episodes of bronchitis, chronic bronchitis, bronchiectasis or COPD: No Smoker: No Seasonal/environmental allergies: No The ROS is otherwise negative. The patient's pmh, medications, allergies, and past visits are reviewed. PHYSICAL EXAM: BP 122/80 Pulse 86 Temp 36.3 ?C (97.3 ?F) Resp 16 Wt 80.7 kg (178 lb) LMP 07/25/2021 SpO2 99% BMI 28.73 kg/m? General appearance: alert, cooperative, pleasant, in no acute distress Head: Normocephalic Eyes: EOM's intact, conjunctiva pink and moist, no icterus, sclera white, non-injected Ears: Right ear: External ear/canal- Normal, TM - clear with good landmarks. Left ear: External ear/canal- Normal, TM - clear with good landmarks Oropharynx:moderate erythema, without exudates present Heart: Negative. RRR without obvious murmur, gallop, or rubs. No ectopy. Lungs: clear to auscultation, without rales or wheeze, good air exchange PAST MEDICAL HISTORY Diagnosis Date Anemia in 07/30/2015 Gestational hypertension Menarche 2009 Age 13.5 Mental disorder Anxiety Attacks PMH - PAST MEDICAL HISTORY OF 03/2007 normal color vision PAST SURGICAL HISTORY Procedure Laterality Date DANDC (INCOMPLETE AB), ANY TRIMESTER [id number]/29/2019 SALPINGECTOMY Bilateral 08/30/2021 laparoscopic ALLERGIES Patient has no known allergies. MEDICATIONS No prescriptions on file. FAMILY HISTORY Problem Relation Age of Onset other (anxiety) Mother Psychiatry Father bipolar No Known Problems Sister No Known Problems Sister other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 reported ear pain rated 2, x1 day, muffled hearing HPI: Feeling left ear pain since yesterday. Started after taking a bath. Positive symptoms: Earache, muffled hearing, Negative symptoms: Cough, Sore throat, Nasal Congestion, Rhinorrhea, Fever, otorrhea, OTC: qtip with peroxide MEDICATIONS: No current outpatient medications on file. No current facility-administered medications for this visit. ALLERGIES: ALLERGIES No Known Allergies VITALS: BP 120/76 Pulse 82 Temp 36.7 C (98 F) Resp 16 Wt 88.5 kg (195 lb) LMP 07/25/2021 SpO2 97% BMI 31.47 kg/m PHYSICAL EXAM: GEN: Pleasant, in no acute distress. HEENT: PERRL, EOMI, conjunctiva clear Ears: canals occluded by cerumen. TMs without erythema, bulge, or effusion after removal. Sinuses: non-tender frontal sinus, non-tender maxillary sinuses Throat: moist mucous membranes, no erythema, no exudate Neck: supple, no thyromegaly, no lymphadenopathy HEART: regular rate and rhythm, no murmurs LUNGS: clear to auscultation, no wheezes or crackles, no increased WOB ASSESSMENT/PLAN: 1. Bilateral impacted cerumen - ICD9: 380.4, ICD10: H61.23 Successful removal by water lavage today (MA on the left, me on the right). There was tiny residualcerumen adherent to the mid distal right canal partially removed with plastic cerumen hook. She may use peroxide drops at home. Veto Pickens MD documented in this encounterWestern [facility]04-13-2020 History of Past illness Narrative* Problem Noted Date Resolved Date control counseling 09/05/2019 020 Overview: 09/05/2019 Wants Nexplanon at delivery. SW Tobacco use during , antepartum 019 12/13/2019 Overview: 03/24/2019Pt smokes 2 cigarettes a day, down from 1/2 pack a day. Discussed risks of smoking during . Advised pt to quit. TKRN History of gestational hypertension 03/24/2019 12/13/2019 Overview: 03/24/2019Patient has a history of gestational hypertension with last . TKRN Short interval between pregn ancies affecting , antepartum 07/24/2016 08/11/2017 Overview: 07/24/2016Patient delivered her last child 09/2015. Patient had a rapid labor and delivery last . She presented complete at the hospital and pushed for 30 minutes. FOB's sister with Von Willebrand's. FOB's aunt with cleft lip and palate. Patient desires nuchal ultrasound. Pt declines CF carrier screening testing. TKRN Abnormal glucose affecting 08/07/2015 04/06/2017 Overview: 08/07/15 - 3hr GTT normal - KJ Anemia in 07/30/2015 04/06/2017 documented as of this encounter (statuses as of 08/22/2021) [facility] History of Past illness Narrative* Problem Noted Date Resolved Date control counseling 09/05/2019 020 Overview: 09/05/2019 Wants Nexplanon at delivery. SW Tobacco use during , antepartum 019 12/13/2019 Overview: 03/24/2019Pt smokes 2 cigarettes a day, down from 1/2 pack a day. Discussed risks of smoking during . Advised pt to quit. TKRN History of gestational hypertension 03/24/2019 12/13/2019 Overview: 03/24/2019Patient has a history of gestational hypertension with last . TKRN Short interval between pregn ancies affecting , antepartum 07/24/2016 08/11/2017 Overview: 07/24/2016Patient delivered her last child 09/2015. Patient had a rapid labor and delivery last . She presented complete at the hospital and pushed for 30 minutes. FOB's sister with Von Willebrand's. FOB's aunt with cleft lip and palate. Patient desires nuchal ultrasound. Pt declines CF carrier screening testing. TKRN Abnormal glucose affecting 08/07/2015 04/06/2017 Overview: 08/07/15 - 3hr GTT normal - KJ Anemia in 07/30/2015 04/06/2017 documented as of this encounter (statuses as of 11/07/2021) [facility] of Past illness Narrative* Problem Noted Date Resolved Date control counseling 09/05/2019 020 Overview: 09/05/2019 Wants Nexplanon at delivery. SW Tobacco use during , antepartum 019 12/13/2019 Overview: 03/24/2019Pt smokes 2 cigarettes a day, down from 1/2 pack a day. Discussed risks of smoking during . Advised pt to quit. TKRN History of gestational hypertension 03/24/2019 12/13/2019 Overview: 03/24/2019Patient has a history of gestational hypertension with last . TKRN Short interval between pregn ancies affecting , antepartum 07/24/2016 08/11/2017 Overview: 07/24/2016Patient delivered her last child 09/2015. Patient had a rapid labor and delivery last . She presented complete at the hospital and pushed for 30 minutes. ANAHI's sister with Von Willebrand's. ANAHI's aunt with cleft lip and palate. Patient desires nuchal ultrasound. Pt declines CF carrier screening testing. TKRN Abnormal glucose affecting 08/07/2015 04/06/2017 Overview: 08/07/15 - 3hr GTT normal - KJ Anemia in 07/30/2015 04/06/2017 documented as of this encounter (statuses as of 04/23/2022) [facility] of Past illness Narrative* Problem Noted Date Resolved Date control counseling 09/05/2019 020 Overview: 09/05/2019 Wants Nexplanon at delivery. SW Tobacco use during , antepartum 019 12/13/2019 Overview: 03/24/2019Pt smokes 2 cigarettes a day, down from 1/2 pack a day. Discussed risks of smoking during . Advised pt to quit. TKRN History of gestational hypertension 03/24/2019 12/13/2019 Overview: 03/24/2019Patient has a history of gestational hypertension with last . TKRN Short interval between pregn ancies affecting , antepartum 07/24/2016 08/11/2017 Overview: 07/24/2016Patient delivered her last child 09/2015. Patient had a rapid labor and delivery last . She presented complete at the hospital and pushed for 30 minutes. ANAHI's sister with Von Willebrand's. ANAHI's aunt with cleft lip and palate. Patient desires nuchal ultrasound. Pt declines CF carrier screening testing. TKRN Abnormal glucose affecting 08/07/2015 04/06/2017 Overview: 08/07/15 - 3hr GTT normal - KJ Anemia in 07/30/2015 04/06/2017 documented as of this encounter (statuses as of 04/24/2022) [facility] of [facility] illness Narrative* Problem Noted Date Resolved Date control counseling 09/05/2019 020 Overview: 09/05/2019 Wants Nexplanon at delivery. SW Tobacco use during , antepartum 019 12/13/2019 Overview: 03/24/2019Pt smokes 2 cigarettes a day, down from 1/2 pack a day. Discussed risks of smoking during . Advised pt to quit. TKRN History of gestational hypertension 03/24/2019 12/13/2019 Overview: 03/24/2019Patient has a history of gestational hypertension with last . TKRN Short interval between pregn ancies affecting , antepartum 07/24/2016 08/11/2017 Overview: 07/24/2016Patient delivered her last child 09/2015. Patient had a rapid labor and delivery last . She presented complete at the hospital and pushed for 30 minutes. FOB's sister with Von Willebrand's. FOB's aunt with cleft lip and palate. Patient desires nuchal ultrasound. Pt declines CF carrier screening testing. TKRN Abnormal glucose affecting 08/07/2015 04/06/2017 Overview: 08/07/15 - 3hr GTT normal - KJ Anemia in 07/30/2015 04/06/2017 documented as of this encounter (statuses as of 10/27/2022) [facility] of [facility] illness Narrative* Problem Noted Date Diagnosed Date Resolved Date control counseling 09/05/2019 Overview: 09/05/2019 Wants Nexplanon at delivery. SW Tobacco use during , antepartum 03/24/2019 12/13/2019 Overview: 03/24/2019Pt smokes 2 cigarettes a day, down from 1/2 pack a day. Discussed risks of smoking during . Advised pt to quit. TKRN History of gestational hypertension 03/24/2019 12/13/2019 Overview: 03/24/2019Patient has a history of gestational hypertension with last . TKRN Short interval between pregn ancies affecting , antepartum 07/24/2016 08/11/2017 Overview: 07/24/2016Patient delivered her last child 09/2015. Patient had a rapid labor and delivery last . She presented complete at the hospital and pushed for 30 minutes. ANAHI's sister with Von Willebrand's. ANAHI's aunt with cleft lip and palate. Patient desires nuchal ultrasound. Pt declines CF carrier screening testing. TKRN Abnormal glucose affecting 08/07/2015 04/06/2017 Overview: 08/07/15 - 3hr GTT normal - KJ Anemia in 07/30/2015 04/06/20 17 documented as of this encounter (statuses as of 06/29/2023) [facility] Narrative* Problem Noted Date Diagnosed Date Resolved Date control counseling 09/05/2019 Overview: 09/05/2019 Wants Nexplanon at delivery. SW Tobacco use during , antepartum 03/24/2019 12/13/2019 Overview: 03/24/2019Pt smokes 2 cigarettes a day, down from 1/2 pack a day. Discussed risks of smoking during . Advised pt to quit. TKRN History of gestational hypertension 03/24/2019 12/13/2019 Overview: 03/24/2019Patient has a history of gestational hypertension with last . TKRN Short interval between pregn ancies affecting , antepartum 07/24/2016 08/11/2017 Overview: 07/24/2016Patient delivered her last child 09/2015. Patient had a rapid labor and delivery last . She presented complete at the hospital and pushed for 30 minutes. ANAHI's sister with Von Willebrand's. FOB's aunt with cleft lip and palate. Patient desires nuchal ultrasound. Pt declines CF carrier screening testing. TKRN Abnormal glucose affecting 08/07/2015 04/06/2017 Overview: 08/07/15 - 3hr GTT normal - KJ Anemia in 07/30/2015 04/06/20 17 documented as of this encounter (statuses as of 07/06/2023) [facility] Author Oj Coffman [facility] April 26, 2023 1:51am Note Date/Time April 26, 2023 1 :13am [facility] Medical Records Department [address] [place] [address] Emergency Department Summary 04/26/23 MR#: [id number] Acct: [id number] Name: LAURIE CHRISTIE Rep #:[id number] : 1995 28 From: Oj Coffman MD PCP: Care Physician,No Primary Status :REG ER Location: ED HPI History of Present Illness Chief Complaint: Allergic Reaction Informant: patient Narrative Narrative: Patient states about 18 hours ago, when she woke up this past morning, she was itchy on her face, upper chest, bilateral forearms, and tonight that has progressed to feeling like her throat is swelling and she is having difficulty breathing. She denies any chest tightness/symptoms. No near-syncope or syncope. She took a some type of ixle-ngz-leituxy allergy medication she is notsure exactly what it is, but it did not seem to help very much tonight. She states she has a new dish soap, but cannot think of any other new topicals or foods that she is suspicious could be causing this. She does not have asthma. She has not had this happen before. [facility] Medical History Smoker Wears glasses Home Medications NK 04/26/23 [History Last Taken Unknown] epinephrine 0.3 mg/0.3 mL injection, auto-injector (EpiPen) 0.3 mg (0.3 mL) IM Q4H PRN anaphylaxis #2 ea 04/26/23 [Rx Last Taken Unknown] prednisone 20 mg tablet 40 mg (2 x 20 mg) PO DAILY #10 TABLETS 04/26/23 [Rx Last Taken Unknown] Allergy/AdvReac Type Severity Reaction Status Date / Time No Known Allergies Allergy Verified 04/26/23 00:56 Surgical History History of D&C Social History Smoking Status: Current every day smoker tobacco type: e-cigarettes ROS ROS ED Constitutional Constitutional ED: Denies chills or fever(s) Eyes Eyes: Denies change in vision or diplopia ENT ENT ED: Reports throat swelling; Denies rhinorrhea or sore throat Cardiovascular Cardiovascular: Denies chest pain or palpitations Respiratory/Chest Respiratory/Chest: Reports dyspnea; Denies cough Gastrointestinal Gastrointestinal: Denies abdominal pain, diarrhea, nausea or vomiting Genitourinary Genitourinary ED: Denies dysuria or hematuria Musculoskeletal Musculoskeletal: Denies back pain or neck pain Integumentary Reports pruritus and rash; Denies abscess Neurologic Neurologic: Denies headache(s), paresthesias or weakness Psychiatric Psychiatric: Denies anxiety or suicidal thoughts EXAM Physical Exam Const Vital Signs: 04/26/23 00:57 04/26/23 01:15 Temperature 97.1 F L Temperature Source Temporal Pulse Rate 85 89 Respiratory Rate 20 H 20 H Respiratory Pattern Normal Blood Pressure 133/96 H Blood Pressure Mean 108 Pulse Ox 93 Oxygen Delivery Method Room Air Positive well nourished and well developed General Appearance ED: well developed and NAD HEENT Reports moist mucous membranes HEENT Narrative: Very slight stridor. No distress, conversive in full sentences. normocephalic and atraumatic Eyes PERRL and EOMs intact bilaterally Neck full ROM and supple Resp normal respiratory effort and clear to auscultation bilaterally Cardio regular rate, regular rhythm and no murmurs Rate: Negative for tachycardic GI non-tender and non-distended Auscultation: normoactive bowel sounds Palpation: soft Back/Spine no CVA tenderness General Back: other FROM Extremity normal to inspection General Extremety ED: Negative for edema, pulses abnormal or tenderness General Extremity: Negative for edema or pulses abnormal Neuro oriented x3, CN's II-XII intact bilaterally and no sensory deficits noted Sensorium / Orientation: awake and alert Motor Exam: strength 5/5 throughout Psych mental status grossly normal Skin no wounds Skin Narrative: On forearms, face, upper chest slight erythema without raised urticaria or otherfrank lesions, patient states pruritic. No bullae. MDM MDM MDM Narrative Medical decision making narrative: Differential includes an allergic reaction that is causing effects in her throat, in which case epinephrine aerosol should help, so we started with that and a dose of prednisone 40 mg. The racemic epinephrine resolved her sensation of throat swelling and dyspnea and she had no more stridor afterwards. She is comfortable going home, will prescribe her an EpiPen as well as the rest of a 5-6-day course of prednisone and follow-up given as well as instructions to return to the ER for symptoms of anaphylaxis. Critical Care Time Critical Care Time: Yes Critical care time (excluding procedures): 30-74 minutes (32 min), Including time spent:, Discussing w/Patient &/or Family/Licensing And Registration Director and Performing Direct Patient Care at Bedside Discharge Plan Triage Chief Complaint: Allergic Reaction ED Provider: Oj Coffman Dx/Rx/DC Orders Clinical Impression: Anaphylactoid reaction Instructions: ED Anaphylaxis, Allergy Overview Prescriptions: New epinephrine [EpiPen] 0.3 mg/0.3 mL auto-injector 0.3 mg IM Q4H PRN (Reason: anaphylaxis) Qty: 2 0RF prednisone 20 mg tablet 40 mg PO DAILY Qty: 10 0RF No Action NK Primary Care Provider: Care Physician,No Primary Referrals: Iris Sykes [Non-Staff] - 1 Week Activity Restrictions/Additional Instructions: If you have recurrent throat swelling or any of the symptoms of anaphylaxis on the following pages, use the EpiPen and return to the ER immediately. Take the prednisone as prescribed until finished, about every 24 hours or so. Disposition Disposition: Home, Self Care What to do if you have Problems For any increased pain, shortness of breath, bleeding, nausea or vomiting, chestpain, or any unexpected problems, contact your Primary Care Provider. Call [facility] ([phone]) or report to the closest Emergency Room. Call 911 if necessary. 04/26/23 0151 <Electronically signed by Oj Coffman MD> Cosigner Signature (if applicable): CC: No Primary Care Physician ~ Signed [facility] Work Phone: Evaluation note* Diagnosis Bilateral impacted cerumen- Primary Impacted cerumen [facility] Diagnosis Onset Date Resolution Status Encounter for sterilization acute [facility] Work Phone: Evaluation note* Diagnosis Urinary frequency- Primary documented [facility] noteNo assessment information availableWCleveland [facility] Foundation Work Phone: Evaluation note* Diagnosis Sore throat- Primary Acute pharyngitis Fatigue, unspecified type Bilateral impacted cerumen Impacted cerumen [facility]* Diagnosis Sore throat- Primary Acute pharyngitis Nausea Nausea alone documented in this encounter [facility] note* Diagnosis Exposure to SARS-associated coronavirus- Primary [facility] Diagnosis Encounter for gynecological examination (general) (routine) without abnormal findings- Primary Screening for cervical cancer Screening for malignant neoplasm of the cervix Screen for STD (sexually transmitted disease) Screening examination for venereal disease Need for prophylactic vaccination/inoculation against viral disease Need for prophylactic vaccination and inoculation against other viral diseases Dysmenorrhea Pelvic pain in female Unspecified symptom associated with female genital organs Abnormal uterine bleeding (AUB) documented [facility]* Diagnosis Dysmenorrhea- Primary Pelvic pain in female Unspecified symptom associated with female genital organs Abnormal uterine bleeding (AUB) [facility] Diagnosis Acute midline low back pain without sciatica- Primary Rash Rash and other nonspecific skin eruption [facility]* Diagnosis TMJ dysfunction- Primary Temporomandibular joint disorders, unspecified [facility] Additional Instructions There are no signs of airway obstruction or deep infection based on your physical exam and imaging. Your thyroid testing was normal today. I suspect this is more pain from your TMJ or a muscle strain. You do have some swollen lymph nodes in the area as well. We will place you on a course of steroids. Please continue some muscle relaxer.[facility] Work Phone: Hospital Discharge instructions Additional Instructions If you have recurrent throat swelling or any of the symptoms of anaphylaxis on the following pages, use the EpiPen and return to the ER immediately. Take the prednisone as prescribed until finished, about every 24 hours or so.[facility] Work Phone: Hospital Discharge instructions Additional Instructions Thank you for trusting us with your care today! Your x-ray was negative for signs of a bony abnormality of the right elbow including a fracture/broken bone or dislocation. Please take Tylenol (2 pills, 650 mg), ibuprofen (2 pills, 400 mg) every 6 hours as needed for pain and fever control. Please return to the emergency department if your symptoms change or worsen. Please follow with your primary care physician for further outpatient evaluation and management. You can return to work as soon as tomorrow with full activity.[facility] Work Phone: Reason for referral (narrative)* Diagnostic Procedure Only (Routine) - Authorized Specialty Diagnoses / Procedures Referred By Contac t Referred To Contact [facility] Diagnoses Dysmenorrhea Pelvic pain in female Abnormal uterine bleeding (AUB) Procedures PELVIC US WHI US PELVIC NONOBSTETRIC REAL-TIME IMAGE COMPLETE Luh Drew MD [address] [place] [address] [place] [address] Referral ID Status Reason Start Date Expiration Date Visits Requested Visits Authorized [id number] Authorized Auto-Generat ed Referral 01/20/2024 01/19/2025 1 1 [facility] for referral (narrative)No reason for referral information availableWCleveland Clinic Foundation Work Phone: Reason for visit Narrative* Diagnostic Procedure Only (Routine) - Closed Specialty Diagnoses / Procedures Referred By Contac t Referred To Contact [facility] Diagnoses Dysmenorrhea Pelvic pain in female Abnormal uterine bleeding (AUB) Procedures PELVIC US WHI US PELVIC NONOBSTETRIC REAL-TIME IMAGE COMPLETE Luh Drew MD [address] [place] [address] [place] [address] [place] [address] Referral ID Status Reason Start Date Expiration Date V isits Requested Visits Authorized [id number] Closed Auto-Generate d Referral 01/20/2024 01/19/2025 1 1 [facility] Chief Complaint and Reason for Visit Chief Complaint LAP BILATERAL SALPIN G Reason for Visit Encounter for steril ization Chief Complaint LAP BILATERAL SALPIN G LAP BILATERAL SALPING shoulder Reason for Visit Encounter for steril ization Chief Complaint medication reaction Chief Complaint medication reaction NECK/FACE PAIN Chief Complaint medication reaction NECK/FACE PAIN throat swelling, neck pain Chief Complaint allergic reaction Chief Complaint ABD PAIN Chief Complaint Admit Date TMJ July 08, 2024 10:19am fall August 21, 2024 8:1 8pm Advance Directives No Advanced Directives Records Found Advance Directive Response Recorded Date/ Time Advance Directives No April 24, 2016 11:35pm Living Will No August 23, 2021 10:14am Power of Principal Clerk Typist No August 23 10:14am Advance Directive Response Recorded Date/ Time Advance Directives No April 24, 2016 11:35pm Living Will No December 10, 2021 7:17am Power of Principal Clerk Typist No December 10 7:17am Advance Directive Response Recorded Date/ Time Advance Directives No April 24, 2016 10:35pm Living Will No April 25 1:13am Power of Principal Clerk Typist No April 25, 2022 1:13am Advance Directive Response Recorded Date/ Time Advance Directives No April 24, 2016 10:35pm Living Will No June 15 4:14pm Power of Principal Clerk Typist No June 15, 2022 4:14pm Advance Directive Response Recorded Date/ Time Advance Directives No April 24, 2016 10:35pm Living Will No June 16 9:13pm Power of Principal Clerk Typist No June 16, 2022 9:13pm Advance Directive Response Recorded Date/ Time Advance Directives No April 24, 2016 10:35pm Living Will No April 26 12:59am Power of Principal Clerk Typist No April 26, 2023 12:59am Advance Directive Response Recorded Date/ Time Advance Directives No April 24, 2016 11:35pm Living Will No April 26 1:59am Power of Principal Clerk Typist No April 26, 2023 1:59am Advance Directive Response Recorded Date/ Time Living Will No August 21, 2024 9:10pm Do you have a Healthcare Power of Principal Clerk Typist? No August 21, 2024 9:10pm Living Will No July 08 11:32am Do you have a Healthcare Power of Principal Clerk Typist? No July 08, 2024 11:32am Advance Directives No April 24, 2016 11:35pm Summary Purpose Family History No Family History Records FoundNo Family History Records Found Additional Source Comments Source Comments (unrecognize d section and content) In the event this informatio n is protected by the Federal Confidentiality of Alcohol and Drug Abuse Patient Records regulations: The Federal rules restrict any use of the information to criminally investigate or prosecute any alcohol or drug abuse patient.[facility] the event this information is protected by the Federal Confidentiality of Alcohol and Drug Abuse Patient Records regulations: The Federal rules restrict any use of the information to criminally investigate or prosecute any alcohol or drug abuse patient.[facility] Hospital[facility] the event this information is protected by the Federal Confidentiality of Alcohol and Drug Abuse Patient Records regulations: The Federal rules restrict any use of the information to criminally investigate or prosecute any alcohol or drug abuse patient.[facility] Hospital[facility] the event this information is protected by the Federal Confidentiality of Alcohol and Drug Abuse Patient Records regulations: The Federal rules restrict any use of the information to criminally investigate or prosecute any alcohol or drug abuse patient.[facility] HospitalIn the event this information is protected by the Federal Confidentiality of Alcohol and Drug Abuse Patient Records regulations: The Federal rules restrict any use of the information to criminally investigate or prosecute any alcohol or drug abuse patient.[facility] Hospital[facility] the event this information is protected by the Federal Confidentiality of Alcohol and Drug Abuse Patient Records regulations: The Federal rules restrict any use of the information to criminally investigate or prosecute any alcohol or drug abuse patient.[facility] HospitalIn the event this information is protected by the Federal Confidentiality of Alcohol and Drug Abuse Patient Records regulations: The Federal rules restrict any use of the information to criminally investigate or prosecute any alcohol or drug abuse patient.[facility] HospitalIn the event this information is protected by the Federal Confidentiality of Alcohol and Drug Abuse Patient Records regulations: The Federal rules restrict any use of the information to criminally investigate or prosecute any alcohol or drug abuse patient.[facility] HospitalIn the event this information is protected by the Federal Confidentiality of Alcohol and Drug Abuse Patient Records regulations: The Federal rules restrict any use of the information to criminally investigate or prosecute any alcohol or drug abuse patient.[facility] HospitalIn the event this information is protected by the Federal Confidentiality of Alcohol and Drug Abuse Patient Records regulations: The Federal rules restrict any use of the information to criminally investigate or prosecute any alcohol or drug abuse patient.[facility] HospitalIn the event this information is protected by the Federal Confidentiality of Alcohol and Drug Abuse Patient Records regulations: The Federal rules restrict any use of the information to criminally investigate or prosecute any alcohol or drug abuse patient.[facility] Reason for Visit (unrecogniz ed section and content) Reason Comments Ear Pain Pt reported ear pain rated 2, x1 day, muffled hearing Reason Comments Urinary Frequency burning with urinati on x 1 day Reason Comments Results Reason Comments Sore Throat x 3 weeks, cough x 2 days Reason Comments Sore Throat x 3 days, nausea and upset stomach x 1 day Reason Comments Nasal Congestion drainage, sore throa t, cough, dizziness and nausea x over 1 week Reason Onset Date Comments Yearly Exam Gardasil Injection 01/20/2024 Reason Comments Low Back Pain nausea x this am and headache x 3 days Reason Comments Ear Pain Right ear pain x 1 [place] Goals (unrecognized section and content) Goals may be documented in a n alternate sectionGoals may be documented in an alternate sectionGoals may be documented in an alternate sectionGoals may be documented in an alternate sectionGoals may be documented in an alternate sectionGoals may be documented in an alternate sectionGoals may be documented in an alternate section Care Teams (unrecognized sec tion and content) Team Status: Active Member Role Status Dates Paty Mercedes BLOW MOLDING MACHINE OPERATOR, BLOW MOLDING MACHINE OPERATOR-C Family Provider Active No Primary Care Physician Primary Care Provider Active Team Status: Inactive Member Role Status Dates No Primary Care Physician Primary Care Provider Active Dr. Inderjit De La Fuente DO Attending Provider, Emergency P [place] Active Team Status: Inactive Member Role Status Dates No Primary Care Physician Primary Care Provider Active Eron Nassar MD Emergency Provider Active Team Status: Inactive Member Role Status Dates No Primary Care Physician Primary Care Provider Active Dr. Analisa Anton DO Emergency Provider Active Team Status: Inactive Member Role Status Dates No Primary Care Physician Primary Care Provider Active Dr. Oj Coffman MD Emergency Provider Active Team Status: Active Member Role Status Dates Paty Velazquez BLOW MOLDING MACHINE OPERATOR, BLOW MOLDING MACHINE OPERATOR-C Family Provider Active No Primary Care Physician Primary Care Provider Active Team Status: Inactive Member Role Status Dates No Primary Care Physician Primary Care Provider Active Ed Physician Provider Emergency Provider Active Team Status: Active Member Role Status Dates No Primary Care Physician Primary Care Provider Active Team Status: Inactive Member Role Status Dates No Primary Care Physician Primary Care Provider Active Start: July 08, 2024 End: July 08, 2024 Dr. Zana Blakely MD Attending Provider Active S tart: July 08, 2024 End: July 08, 2024 Dr. Zana Blakely MD Emergency Provider Active S tart: July 08, 2024 End: July 08, 2024 Team Status: Inactive Member Role Status Dates No Primary Care Physician Primary Care Provider Active Start: August 21, 2024 End: August 21, 2024 Dr. Inderjit De La Fuente DO Emergency Provider Active Start: August 21, 2024 End: August 21, 2024 INFORMATION SOURCE (unrecogn ized section and content) DATE CREATED AUTHOR 05/26/2024 [facility] DATE CREATED AUTHOR AUTHOR'S ORGANIZ ATION 08/27/2024 [facility] FOR RECORDS PERTAINING TO PATIENTS WHO ARE OR HAVE BEEN ENROLLED IN A CHEMICAL DEPENDENCY/SUBSTANCEABUSE PROGRAM, SOME INFORMATION MAY BE OMITTED. This clinical summary was aggregated from multiple sources. Caution should be exercised in using it in the provision of clinical care. This summary normalizes information from multiple sources, and as a consequence, information in this document may materially change the coding, format and clinical context of patient data. In addition, data may be omitted in some cases. CLINICAL DECISIONS SHOULD BE BASED ON THE PRIMARY CLINICAL RECORDS. [employer] provides no warranty or guarantee of the accuracy or completeness of information in this document.
[2024-12-24 09:23] LABS: Mucous, Urine 0 SEEN /hpf (<or=2+); Red Blood Cells-Urine 0 SEEN /hpf (0-5); Squamous Epithelial Cells - UA 0 SEEN /hpf (5-10)
[2024-12-24 09:24] LABS: Hematocrit 37.6 % (37-47); Hemoglobin 12.5 g/dL (12.0-15.0); Immature Granulocytes Count 0.090 X10^3/uL (0.0-0.0); Mean Corp Hgb Conc 33.2 g/dL (32-36); Mean Corpuscular Volume 87.4 fL (81-99); Mean Platelet Vol. 9.2 fl (6.2-12.0); NRBC Flagged by Analyzer 0 % (0-5); POSITIVE DIFFERENTIAL YES; Platelet Count 228 K/mm3 (150-450); RBC Distribution Width CV 13.3 % (11.6-14.6); RBC Distribution Width SD 42.5 fl (35.1-43.9); Red Blood Count 4.30 M/mm3 (4.2-5.4); White Blood Count 16.8 K/mm3 (4.4-11.0)
[2024-12-24 09:25] LABS: Color, Urine Yellow (Yellow); Differential Indicated SCAN CRITERIA MET; Glucose, Dipstick Normal (Normal); Ketone-Dipstick 50 mg/dl (Negative); Leukocyte Esterase-Dipstick 500 /ul (Negative); Nitrite-Dipstick Positive (Negative); Occult Blood-Urine 150 /ul (Negative); Protein-Dipstick 30 mg/dl (Negative); Specific Gravity, Urine 1.010 (1.002-1.030); Urine Bilirubin Dipstick Negative (Negative)
[2024-12-24 09:38] LABS: Internal QC Validated? YES +Cl - CLEAR BKGD; Pregnancy, Serum, hCG Quali. NEGATIVE Negative; Record Kit Lot#, Serum Preg. 962302
[2024-12-24 10:11] LABS: AST(SGOT) 18 U/L (<=31); Alanine Aminotransfer ALT/SGPT 19 U/L (<=34); Albumin, Serum 3.8 g/dL (3.5-5.0); Alkaline Phosphatase 78 U/L (35-104); Anion Gap 12 (5-15); BUN 9 mg/dL (4-19); BUN/Creat Ratio 12.2 RATIO (10-20); Calcium,Total 8.5 mg/dL (7.6-11.0); Carbon Dioxide 21.5 mmol/L (21.0-32.0); Chloride 102 mmol/L (98-108); Estimated Creatinine Clearance 112.41 ml/min (50-250); Globulin 3.3 g/dL (2.2-4.2); Glucose 101 mg/dL (70-99); Lipase 15 U/L (13-75); Potassium 3.8 mmol/L (3.3-5.1)
[2024-12-24] MEDS: Ceftriaxone 2 GM in 0.9% Normal Saline (50mL MB+) 50 ML IV (12:00)
--- NOTE | 2024-12-24 13:05 | CM.ED ---
Social Work Date of referral: 12/24/24 Reason for Referral: No Primary Care Physician (PCP) on file Referred by: Social Work Identification Patient provided consent to social work visit. Patient confirmed she does not currently have a PCP. [employer] Archaeology Lecturer provided a written resource for the [facility] which patient accepted and expressed appreciation for. [employer] Lecturer also reviewed with patient how she can also reach out to her insurance provider to get additional resources. Anjelica Horner, [employer], ORTHOTIC FINISH GRINDING TECHNICIAN
--- NOTE | 2024-12-24 13:12 | HP.PCM.HOS_ITS ---
HPI - General General Date of Admission: 12/24/24 Date of Service: 12/24/24 Chief Complaint: abdominal pain HPI Narrative LAURIE CHRISTIE, is a 29 F with a PMH as outlined who was admitted via the ED on 12/24/2024 with a complaint of abdominal pain which started about 4 days prior to admission. She was concerned about possible appendicitis, so she went to the urgent care today from where she was sent to the ED. She admitted to nausea and vomiting yesterday and also admitted to fever but no chills. She denied any frequency, dysuria or hematuria. Review of systems is otherwise negative. Vitals in the ED were blood pressure of 105/72, pulse rate of 102, respiratory rate of 18 and oxygen saturation of 99% on room air. CBC showed hemoglobin of 12.5 with WBC of 16.8 and platelets of 228. Chemistry showed sodium of 135 with potassium of 3.8 and bicarb of 21.5. Creatinine 0.76. Total bilirubin is 0.85. Urinalysis showed positive nitrites and elevated leukocyte esterase as well as 1+ bacteria. CT of the abdomen and pelvis showed pyelonephritis and proximal ureteritis of the right kidney with no discrete abscesses and hyperdensity within the proximal right ureter which may be secondary to infection with no discrete nephrolithiasis. She has been admitted to be managed for right-sided pyelonephritis. [facility] Medical History Wears glasses Smoker Home Medications ?Medication ?Instructions ?Recorded ?Last Taken ?Type epinephrine 0.3 mg/0.3 mL 0.3 mg (0.3 mL) IM Q4H PRN 1 06/27/22 Unknown Rx injection, auto-injector (EpiPen) anaphylaxis #2 ea Allergy/AdvReac Type Severity Reaction Status Date / Time No Known Allergies Allergy Verified 12/24/24 08:48 Surgical History History of D&C Social History Smoking Status: Current every day smoker tobacco type: e-cigarettes ROS Constitutional Constitutional: Reports chills, fatigue, fever(s), malaise and weakness; Denies anorexia Eyes Eyes: Denies change in vision ENT HEENT: Denies dysphagia, headache(s) or sore throat Cardiovascular Cardiovascular: Denies chest pain, edema, lightheadedness, orthopnea, palpitations, paroxysmal nocturnal dyspnea, rapid heart rate or syncope Respiratory/Chest Respiratory/Chest: Denies cough, dyspnea, shortness of breath at rest or shortness of breath with exertion Gastrointestinal Gastrointestinal: Reports abdominal pain, nausea and vomiting; Denies coffee ground emesis, constipation, diarrhea, dyspepsia, hematemesis, hematochezia, loose stools or melena Genitourinary Genitourinary: Denies burning urination, dysuria or hematuria Neurologic Neurologic: Denies confusion, dizziness or focal weakness Vital Signs Vital Signs Vital Signs: 12/24/24 08:49 12/24/24 11:59 Temperature 98.9 F Temperature Source Oral Pulse Rate 114 H 102 H Respiratory Rate 14 18 Blood Pressure 137/71 H 105/72 Blood Pressure Mean 93 83 Pulse Ox 100 99 Oxygen Delivery Method Room Air Room Air Weight Weight: 164 lb 7.437 oz Body Mass Index (BMI) 27.3 Physical Exam Const alert and oriented x3 General Appearance: cooperative HEENT normocephalic, head/scalp atraumatic, hearing grossly normal bilaterally and moist oral mucous membranes Eyes PERRL, EOMs intact bilaterally and conjunctivae normal Neck no lymphadenopathy, supple and no JVD Resp normal respiratory effort, no retractions, no use of accessory muscles and clear to auscultation bilaterally Cardio regular rate, regular rhythm, S1 normal heart sound, S2 normal heart sound and no murmurs GI normal to inspection, nondistended, normoactive bowel sounds, soft to palpation, non-tender and non-distended GI Narrative: no right CVA tenderness. Extremity normal to inspection, full ROM and no clubbing, cyanosis or edema Neuro oriented x3, CN's II-XII intact bilaterally, moves all extremities and no focal motor deficits Sensorium / Orientation: awake and alert Motor Exam: strength 5/5 throughout Psych affect normal Results Lab / Micro Data 12/24/24 09:15 12/24/24 09:15 Labs: Laboratory Results - last 24 hr 12/24/24 09:15: WBC 16.8 H, RBC 4.30, Hgb 12.5, Hct 37.6, MCV 87.4, MCH 29.1, MCHC 33.2, RDW Std Deviation 42.5, RDW Coeff of Jazmine 13.3, Plt Count 228, MPV 9.2, Immature Gran % (Auto) 0.500, Neut % (Auto) 75.1 H, Lymph % (Auto) 10.2 L, [place] % (Auto) 13.5 H, Eos % (Auto) 0.2, Baso % (Auto) 0.5, Absolute Neuts (auto) 12.6 H, Absolute Lymphs (auto) 1.72, Nucleated RBC % 0, Sodium 135, Potassium 3.8, Chloride 102, Carbon Dioxide 21.5, Anion Gap 12, BUN 9, Creatinine 0.76, Estim Creat Clear Calc 112.41, Est GFR (MDRD) Non-Af 111, BUN/Creatinine Ratio 12.2, Glucose 101 H, Calcium 8.5, Total Bilirubin 0.85, AST 18, ALT 19, Alkaline Phosphatase 78, Total Protein 7.1, Albumin 3.8, Globulin 3.3, Albumin/Globulin Ratio 1.2, Lipase 15, Serum , Qual NEGATIVE, Urine Color Yellow, Urine Clarity Sl. Cloudy, Urine pH 6.0, Ur Specific [place] 1.010, Urine Protein 30 H, Urine Glucose (UA) Normal, Urine Ketones 50 H, Urine Occult Blood 150 H, Urine Nitrite Positive H, Urine Bilirubin Negative, Urine Urobilinogen Normal, Ur Leukocyte Esterase 500 H, Urine RBC 0 SEEN, Urine WBC >100 SEEN, Ur Squamous Epith Cells 0 SEEN, Urine Bacteria 1+, Urine Mucus 0 SEEN Imaging Radiology Impression Abdomen/Pelvis CT 12/24/24 09:16 IMPRESSION: 1. Pyelonephritis and proximal ureteritis of the right kidney. No discrete abscess. 2. Hyperdensity within the proximal right ureter, which may be secondary to infection. No discrete nephrolithiasis. Reading Location: [facility] Assessment & Plan Assessment/Plan (1) Pyelonephritis: (2) UTI (urinary tract infection): PLAN: Plan #Acute right sided pyelonephritis and proximal ureteritis of the right kidney * Admit to [facility]. Urinalysis shows evidence of UTI with elevated leukocyte esterase and WBC as well as bacteria. * CT of the abdomen pelvis shows pyelonephritis and proximal ureteritis of the right kidney with no discrete abscess and hypodensity within the proximal right ureter which may be secondary to infection. There were no kidney stone seen. * Started on IV Zosyn. Get blood cultures and urine culture. Hydrate gently with IV fluids. P.o. Tylenol, p.o. oxycodone and IV morphine as needed for pain. * DVT prophylaxis: Low risk. Encourage ambulation Charges/Coding Visit Charges Inpatient E&M: 77107 Init Hosp L3
--- OUTSIDE RECORDS SUMMARY | 2024-12-24 14:41 | XMS RPT_ITS | CCD ---
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 dered By: Dr. Anton on 06-16-2022 Platelet mean volume (Bld) [Entitic vol] 9.3 fL 6.2-12.0 [facility] Determination of erythrocyte mean corpuscular volume (MCV)Ordered By: Dr. Anton on 06-16-2022 MCV (RBC) [Entitic vol] 88.5 fL 81-99 [facility] Hematocrit Auto (Bld) [Volum e fraction]Ordered By: Dr. Anton on 06-16-2022 Hematocrit (Bld) [Volume fraction] 44.5 % 37-47 [facility] Laboratory - Chemistry and C hemistry - challengeOrdered By: Dr. Anton on 06-16-2022 Free T4 [Mass/Vol] 0.99 ng/dL 0.76-1.46 [facility] Laboratory - Hematology and Cell countsOrdered By: Dr. Anton on 06-16-2022 Erythrocyte distribution width (RBC) [Entitic vol] 42.8 fL 35.1-43.9 [facility] Erythrocyte distribution width (RBC) [Ratio] 13.2 % 11.6-14.6 [facility] Immature granulocytes/100 WBC (Bld) 0.400 % 0.0-0.9 [facility] Comment on above: IG% - Immature Granu locytes (promyelocytes, myelocytes and metamyelocytes) > 1% indicates that a LEFT SHIFT is Present. MCH (RBC) [Entitic mass] 28.6 pg 27.0-32.0 [facility] Nucleated RBC/100 WBC (Bld) [Ratio] 0 % 0-5 [facility] MCHC Auto (RBC) [Mass/Vol]Or dered By: Dr. Anton on 06-16-2022 MCHC (RBC) [Mass/Vol] 32.4 g/dL 32-36 [facility] No Panel InformationOrdered By: Dr. Anton on 06-16-2022 Thyroid Stimulating Hormone (TSH) 1.59 uIU/mL 0.358-3.74 [facility] Platelets bldOrdered By: Dr. Anton on 06-16-2022 Platelets (Bld) [#/Vol] 343 10*3/uL 150-450 [facility] Serum heterophile antibody d etectionOrdered By: Dr. Anton on 06-16-2022 Heterophile Ab Ql (S) Negative Negative [facility] UA DIP, URINE (POC)on 2021 BILIRUBIN UA (POCT) Negative Negative [facility] CLARITY UA (POCT) [facility] COLOR UA (POCT) Yellow [facility] GLUCOSE UA (POCT) Negative Negative mg/dL [facility] HEMOGLOBIN/BLOOD UA (POCT) Negative Negative [facility] KETONE UA (POCT) Negative Negative mg/dL [facility] LEUKOCYTES UA (POCT) Trace Abnormal Negative [facility] NITRITE UA (POCT) Negative Negative [facility] PH UA (POCT) 6.5 4.5 - 8.0 [facility] Protein Ql (U) Negative Negative mg/dL [facility] SPECIFIC GRAVITY UA (POCT) 1.020 1.005 - 1.030 [facility] UROBILINOGEN UA (POCT) 0.2 E.U./dL Normal E.U./dL [facility] Laboratory - Chemistry and C hemistry - challengeon 08-30-2021 HCG ( test) Ql (U) Negative [facility] Work Phone: Comment on above: Very dilute urine sp ecimens, as indicated by a low specificgravity, may not contain insurance claims representative levels of hCG. If is still suspected, a first morning urinespecimen should be collected 48 hours later and tested. 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 Invalid Interpretation Code [facility] Work Phone: Vital Signs Date Time Vital Sign Value Performing Clinician Facility 12-24-2024 08:22-0400 Body mass index (BMI) [Ratio] 26.99 kg/m2 Krislyn Aberegg PA Work Phone: [facility] 12-24-2024 08:22-0400 Body temperature 99.1 [degF] Krislyn Aberegg PA Work Phone: [facility] 12-24-2024 08:22-0400 Body weight 74.7 kg Krislyn Aberegg PA Work Phone: [facility] 12-24-2024 08:22-0400 Diastolic blood pressure 68 mm[Hg] Krislyn Aberegg PA Work Phone: [facility] 12-24-2024 08:22-0400 Heart rate 108 /min Krislyn Aberegg PA Work Phone: [facility] 12-24-2024 08:22-0400 Respiratory rate 18 /min Krislyn Aberegg PA Work Phone: [facility] 12-24-2024 08:22-0400 SaO2% (BldA) [Mass fraction] 96 % Krislyn Aberegg PA Work Phone: [facility] 12-24-2024 08:22-0400 Systolic blood pressure 118 mm[Hg] Pedro Carlita MONROY Work Phone: [facility] 08-21-2024 20:18-0400 Body height 165.1 cm No Primary Care Physician [facility] 08-21-2024 20:18-0400 Body mass index (BMI) [Ratio] 27.4 kg/m2 No Primary Care Physician [facility] 08-21-2024 20:18-0400 Body temperature 98.2 [degF] No Primary Care Physician [facility] 08-21-2024 20:18-0400 Body weight 74.84 kg No Primary Care Physician [facility] 08-21-2024 20:18-0400 Diastolic blood pressure 92 mm[Hg] No Primary Care Physician [facility] 08-21-2024 20:18-0400 Heart rate 95 /min No Primary Care Physician [facility] 08-21-2024 20:18-0400 Respiratory rate 18 /min No Primary Care Physician [facility] 08-21-2024 20:18-0400 SaO2% (BldA) [Mass fraction] 100 % No Primary Care Physician [facility] 08-21-2024 20:18-0400 Systolic blood pressure 128 mm[Hg] No Primary Care Physician [facility] 07-08-2024 10:52-0500 Body temperature 97.2 [degF] No Primary Care Physician [facility] 07-08-2024 10:52-0500 Diastolic blood pressure 99 mm[Hg] No Primary Care Physician [facility] 07-08-2024 10:52-0500 Heart rate 85 /min No Primary Care Physician [facility] 07-08-2024 10:52-0500 Respiratory rate 16 /min No Primary Care Physician [facility] 07-08-2024 10:52-0500 SaO2% (BldA) [Mass fraction] 98 % No Primary Care Physician [facility] 07-08-2024 10:52-0500 Systolic blood pressure 145 mm[Hg] No Primary Care Physician [facility] 07-08-2024 10:19-0500 Body mass index (BMI) [Ratio] 27.2 kg/m2 No Primary Care Physician [facility] 07-08-2024 10:19-0500 Body weight 74.2 kg No Primary Care Physician [facility] 05-24-2024 11:39-0500 Body mass index (BMI) [Ratio] 27.2 kg/m2 Gagandeep Ferreira INSPECTOR SCREEN PRINTING.PUBLIC RELATIONS ASSOCIATE Work Phone: [facility] 05-24-2024 11:39-0500 Body temperature 98.29 [degF] Gagandeep Ferreira INSPECTOR SCREEN PRINTING.PUBLIC RELATIONS ASSOCIATE Work Phone: [facility] 05-24-2024 11:39-0500 Body weight 75.3 kg Gagandeep Ferreira INSPECTOR SCREEN PRINTING.PUBLIC RELATIONS ASSOCIATE Work Phone: [facility] 05-24-2024 11:39-0500 Diastolic blood pressure 72 mm[Hg] Gagandeep Ferreira INSPECTOR SCREEN PRINTING.PUBLIC RELATIONS ASSOCIATE Work Phone: [facility] 05-24-2024 11:39-0500 Heart rate 79 /min Gagandeep Ferreira INSPECTOR SCREEN PRINTING.PUBLIC RELATIONS ASSOCIATE Work Phone: [facility] 05-24-2024 11:39-0500 Respiratory rate 16 /min Gagandeep Ferreira INSPECTOR SCREEN PRINTING.PUBLIC RELATIONS ASSOCIATE Work Phone: [facility] 05-24-2024 11:39-0500 SaO2% (BldA) [Mass fraction] 98 % Gagandeep Ferreira INSPECTOR SCREEN PRINTING.PUBLIC RELATIONS ASSOCIATE Work Phone: [facility] 05-24-2024 11:39-0500 Systolic blood pressure 110 mm[Hg] Gagandeep Ferreira INSPECTOR SCREEN PRINTING.PUBLIC RELATIONS ASSOCIATE Work Phone: [facility] 03-08-2024 10:45-0400 Body mass index (BMI) [Ratio] 28.14 kg/m2 Gagandeep Ferreira INSPECTOR SCREEN PRINTING.PUBLIC RELATIONS ASSOCIATE Work Phone: [facility] 03-08-2024 10:45-0400 Body temperature 96.91 [degF] Gagandeep Ferreira INSPECTOR SCREEN PRINTING.PUBLIC RELATIONS ASSOCIATE Work Phone: [facility] 03-08-2024 10:45-0400 Body weight 77.9 kg [facility] INSPECTOR SCREEN PRINTING.PUBLIC RELATIONS ASSOCIATE Work Phone: [facility] 03-08-2024 10:45-0400 Diastolic blood pressure 60 mm[Hg] [facility] INSPECTOR SCREEN PRINTING.PUBLIC RELATIONS ASSOCIATE Work Phone: [facility] 03-08-2024 10:45-0400 Heart rate 78 /min [facility] INSPECTOR SCREEN PRINTING.PUBLIC RELATIONS ASSOCIATE Work Phone: [facility] 03-08-2024 10:45-0400 Respiratory rate 16 /min [facility] INSPECTOR SCREEN PRINTING.PUBLIC RELATIONS ASSOCIATE Work Phone: [facility] 03-08-2024 10:45-0400 SaO2% (BldA) [Mass fraction] 100 % [facility] INSPECTOR SCREEN PRINTING.PUBLIC RELATIONS ASSOCIATE Work Phone: [facility] 03-08-2024 10:45-0400 Systolic blood pressure 104 mm[Hg] [facility] INSPECTOR SCREEN PRINTING.PUBLIC RELATIONS ASSOCIATE Work Phone: [facility] 01-20-2024 08:22-0400 Body height 166.4 cm Luh Martinez MD Work Phone: [facility] 01-20-2024 08:22-0400 Body mass index (BMI) [Ratio] 29.17 kg/m2 Luh Martinez MD Work Phone: [facility] 01-20-2024 08:22-0400 Body weight 80.74 kg Luh Martinez MD Work Phone: [facility] 01-20-2024 08:22-0400 Diastolic blood pressure 78 mm[Hg] Luh Martinez MD Work Phone: [facility] 01-20-2024 08:22-0400 Systolic blood pressure 122 mm[Hg] Luh Martinez MD Work Phone: [facility] 09-30-2023 14:07-0400 Body height 165.1 cm [facility] 09-30-2023 14:07-0400 Body mass index (BMI) [Ratio] 29.8 kg/m2 [facility] 09-30-2023 14:07-0400 Body temperature 97.2 [degF] [facility] 09-30-2023 14:07-0400 Body weight 81.28 kg [facility] 09-30-2023 14:07-0400 Diastolic blood pressure 90 mm[Hg] [facility] 09-30-2023 14:07-0400 Heart rate 94 /min [facility] 09-30-2023 14:07-0400 Respiratory rate 16 /min [facility] 09-30-2023 14:07-0400 SaO2% (BldA) [Mass fraction] 100 % [facility] 09-30-2023 14:07-0400 Systolic blood pressure 140 mm[Hg] [facility] 07-06-2023 10:56-0500 Body temperature 97.59 [degF] Inga Escobar INSPECTOR SCREEN PRINTING.PUBLIC RELATIONS ASSOCIATE Work Phone: [facility] 07-06-2023 10:56-0500 Body weight 83.01 kg Inga Escobar INSPECTOR SCREEN PRINTING.PUBLIC RELATIONS ASSOCIATE Work Phone: [facility] 07-06-2023 10:56-0500 Diastolic blood pressure 68 mm[Hg] Inga Escobar INSPECTOR SCREEN PRINTING.PUBLIC RELATIONS ASSOCIATE Work Phone: [facility] 07-06-2023 10:56-0500 Heart rate 86 /min Inga Escobar INSPECTOR SCREEN PRINTING.PUBLIC RELATIONS ASSOCIATE Work Phone: [facility] 07-06-2023 10:56-0500 Respiratory rate 16 /min Inga Escobar INSPECTOR SCREEN PRINTING.PUBLIC RELATIONS ASSOCIATE Work Phone: [facility] 07-06-2023 10:56-0500 SaO2% (BldA) [Mass fraction] 99 % Inga Escobar INSPECTOR SCREEN PRINTING.PUBLIC RELATIONS ASSOCIATE Work Phone: [facility] 07-06-2023 10:56-0500 Systolic blood pressure 110 mm[Hg] Inga Escobar INSPECTOR SCREEN PRINTING.PUBLIC RELATIONS ASSOCIATE Work Phone: [facility] 06-29-2023 10:36-0500 Body temperature 97.3 [degF] Daniel Azul KIRTI.PUBLIC RELATIONS ASSOCIATE Work Phone: [facility] 06-29-2023 10:36-0500 Body weight 80.74 kg Daniel Azul KIRTI.PUBLIC RELATIONS ASSOCIATE Work Phone: [facility] 06-29-2023 10:36-0500 Diastolic blood pressure 80 mm[Hg] Daniel Donnell COTTO.PUBLIC RELATIONS ASSOCIATE Work Phone: [facility] 06-29-2023 10:36-0500 Heart rate 86 /min Danielcastillo Azul APRN.PUBLIC RELATIONS ASSOCIATE Work Phone: [facility] 06-29-2023 10:36-0500 Respiratory rate 16 /min Danielcastillo Azul APRN.PUBLIC RELATIONS ASSOCIATE Work Phone: [facility] 06-29-2023 10:36-0500 SaO2% (BldA) [Mass fraction] 99 % Daniel Azul APRN.PUBLIC RELATIONS ASSOCIATE Work Phone: [facility] 06-29-2023 10:36-0500 Systolic blood pressure 122 mm[Hg] Daniel Azul KIRTI.PUBLIC RELATIONS ASSOCIATE Work Phone: [facility] 04-26-2023 01:56-0500 Heart rate 75 /min [facility] 04-26-2023 01:56-0500 Respiratory rate 16 /min [facility] 04-26-2023 01:56-0500 SaO2% (BldA) [Mass fraction] 97 % [facility] 04-26-2023 00:57-0500 Body height 165.1 cm [facility] 04-26-2023 00:57-0500 Body mass index (BMI) [Ratio] 29.2 kg/m2 [facility] 04-26-2023 00:57-0500 Body temperature 97.1 [degF] [facility] 04-26-2023 00:57-0500 Body weight 79.7 kg [facility] 04-26-2023 00:57-0500 Diastolic blood pressure 96 mm[Hg] [facility] 04-26-2023 00:57-0500 Systolic blood pressure 133 mm[Hg] [facility] 10-27-2022 07:19-0400 Body temperature 97.59 [degF] Veto Pickens MD Work Phone: [facility] 10-27-2022 07:19-0400 Body weight 75.3 kg Veto Pickens MD Work Phone: [facility] 10-27-2022 07:19-0400 Diastolic blood pressure 70 mm[Hg] Veto Pickens MD Work Phone: [facility] 10-27-2022 07:19-0400 Heart rate 64 /min Veto Pickens MD Work Phone: [facility] 10-27-2022 07:19-0400 Respiratory rate 16 /min Veto Pickens MD Work Phone: [facility] 10-27-2022 07:19-0400 SaO2% (BldA) [Mass fraction] 98 % Veto Pickens MD Work Phone: [facility] 10-27-2022 07:19-0400 Systolic blood pressure 102 mm[Hg] Veto Pickens MD Work Phone: [facility] 06-16-2022 22:51-0500 Respiratory rate 16 /min [facility] 06-16-2022 20:51-0500 Body height 165.1 cm [facility] 06-16-2022 20:51-0500 Body mass index (BMI) [Ratio] 28.8 kg/m2 [facility] 06-16-2022 20:51-0500 Body temperature 96.4 [degF] [facility] 06-16-2022 20:51-0500 Body weight 78.47 kg [facility] 06-16-2022 20:51-0500 Diastolic blood pressure 107 mm[Hg] [facility] 06-16-2022 20:51-0500 Heart rate 112 /min [facility] 06-16-2022 20:51-0500 SaO2% (BldA) [Mass fraction] 100 % [facility] 01-23-2023 20:51-0500 Systolic blood pressure 138 mm[Hg] [facility] 06-15-2022 15:47-0500 Body height 165.1 cm [facility] 06-15-2022 15:47-0500 Body mass index (BMI) [Ratio] 28.8 kg/m2 [facility] 06-15-2022 15:47-0500 Body temperature 97.8 [degF] [facility] 06-15-2022 15:47-0500 Body weight 78.47 kg [facility] 06-15-2022 15:47-0500 Diastolic blood pressure 108 mm[Hg] [facility] 06-15-2022 15:47-0500 Heart rate 90 /min [facility] 06-15-2022 15:47-0500 Respiratory rate 18 /min [facility] 06-15-2022 15:47-0500 SaO2% (BldA) [Mass fraction] 99 % [facility] 06-15-2022 15:47-0500 Systolic blood pressure 145 mm[Hg] [facility] 04-25-2022 00:41-0500 Body height 165.1 cm [facility] Work Phone: 04-25-2022 00:41-0500 Body mass index (BMI) [Ratio] 28.1 kg/m2 [facility] 04-25-2022 00:41-0500 Body temperature 97.2 [degF] [facility] 04-25-2022 00:41-0500 Body weight 76.8 kg [facility] 04-25-2022 00:41-0500 Diastolic blood pressure 114 mm[Hg] [facility] 04-25-2022 00:41-0500 Heart rate 84 /min [facility] 04-25-2022 00:41-0500 Respiratory rate 17 /min [facility] 04-25-2022 00:41-0500 SaO2% (BldA) [Mass fraction] 99 % [facility] 04-25-2022 00:41-0500 Systolic blood pressure 152 mm[Hg] [facility] 04-23-2022 09:59-0500 Body temperature 97.59 [degF] Anitra Praisler-Wood INSPECTOR SCREEN PRINTING.PUBLIC RELATIONS ASSOCIATE Work Phone: [facility] 04-23-2022 09:59-0500 Body weight 80.74 kg Anitra Praisler-Wood INSPECTOR SCREEN PRINTING.PUBLIC RELATIONS ASSOCIATE Work Phone: [facility] 04-23-2022 09:59-0500 Diastolic blood pressure 70 mm[Hg] Anitra Praisler-Wood INSPECTOR SCREEN PRINTING.PUBLIC RELATIONS ASSOCIATE Work Phone: [facility] 04-23-2022 09:59-0500 Heart rate 86 /min Anitra Praisler-Wood INSPECTOR SCREEN PRINTING.PUBLIC RELATIONS ASSOCIATE Work Phone: [facility] 04-23-2022 09:59-0500 Respiratory rate 16 /min Anitra Praisler-Wood INSPECTOR SCREEN PRINTING.PUBLIC RELATIONS ASSOCIATE Work Phone: [facility] 04-23-2022 09:59-0500 SaO2% (BldA) [Mass fraction] 98 % Anitra Praisler-Wood INSPECTOR SCREEN PRINTING.PUBLIC RELATIONS ASSOCIATE Work Phone: [facility] 04-23-2022 09:59-0500 Systolic blood pressure 112 mm[Hg] Anitra Praisler-Wood INSPECTOR SCREEN PRINTING.[facility] Work Phone: [facility] 12-10-2021 07:07-0400 Body height 165.1 cm No Primary Care Physician [facility] Work Phone: 12-10-2021 07:07-0400 Body mass index (BMI) [Ratio] 32.3 kg/m2 No Primary Care Physician [facility] Work Phone: 12-10-2021 07:07-0400 Body temperature 97.9 [degF] No Primary Care Physician [facility] Work Phone: 12-10-2021 07:07-0400 Body weight 87.99 kg No Primary Care Physician [facility] Work Phone: 12-10-2021 07:07-0400 Diastolic blood pressure 96 mm[Hg] No Primary Care Physician [facility] Work Phone: 12-10-2021 07:07-0400 Heart rate 98 /min No Primary Care Physician [facility] Work Phone: 12-10-2021 07:07-0400 Respiratory rate 18 /min No Primary Care Physician [facility] Work Phone: 12-10-2021 07:07-0400 SaO2% (BldA) [Mass fraction] 99 % No Primary Care Physician [facility] Work Phone: 12-10-2021 07:07-0400 Systolic blood pressure 130 mm[Hg] No Primary Care Physician [facility] Work Phone: 08-30-2021 12:42-0400 Body temperature 97.1 [degF] [facility] Work Phone: 08-30-2021 12:42-0400 Diastolic blood pressure 61 mm[Hg] [facility] Work Phone: 08-30-2021 12:42-0400 Heart rate 70 /min [facility] Work Phone: 08-30-2021 12:42-0400 Respiratory rate 14 /min [facility] Work Phone: 08-30-2021 12:42-0400 SaO2% (BldA) [Mass fraction] 95 % [facility] Work Phone: 08-30-2021 12:42-0400 Systolic blood pressure 111 mm[Hg] [facility] Work Phone: 08-30-2021 08:46-0400 Body height 165.1 cm [facility] Work Phone: 08-30-2021 08:46-0400 Body mass index (BMI) [Ratio] 32.3 kg/m2 [facility] Work Phone: 08-30-2021 08:46-0400 Body weight 88 kg [facility] Work Phone: 08-22-2021 14:00-0400 Body temperature 98.01 [degF] Veto Pickens MD Work Phone: [facility] 08-22-2021 14:00-0400 Body weight 88.45 kg Veto Pickens MD Work Phone: [facility] 08-22-2021 14:00-0400 Diastolic blood pressure 76 mm[Hg] Veto Pickens MD Work Phone: [facility] 08-22-2021 14:00-0400 Heart rate 82 /min Veto Pickens MD Work Phone: [facility] 08-22-2021 14:00-0400 Respiratory rate 16 /min Veto Pickens MD Work Phone: [facility] 08-22-2021 14:00-0400 SaO2% (BldA) [Mass fraction] 97 % Veto Pickens MD Work Phone: [facility] 08-22-2021 14:00-0400 Systolic blood pressure 120 mm[Hg] Veto Pickens MD Work Phone: [facility] 11-13-2016 13:29-0400 BMI (Body Mass Index) 28.34 kg/m2 Yovani MONROY [facility] Work Phone: 11-13-2016 13:29-0400 Body Temperature 98 [degF] Yovani MONROY [facility] Work Phone: 11-13-2016 13:29-0400 BP Diastolic 88 mm[Hg] Yovani MONROY [facility] Work Phone: 11-13-2016 13:29-0400 BP Systolic 134 mm[Hg] Yovani MONROY [facility] Work Phone: 11-13-2016 13:29-0400 Height 160.02 cm Yovani MONROY [facility] Work Phone: 11-13-2016 13:29-0400 Pulse (Heart Rate) 64 /min Yovani MONROY [facility] Work Phone: 11-13-2016 13:29-0400 Pulse Oximetry 99 % Yovani MONROY [facility] Work Phone: 11-13-2016 13: Respiratory Rate 16 /min Yovani MONROY [facility] Work Phone: 11-13-2016 13: Weight 72.58 kg Yovani MONROY [facility] Work Phone: Encounters Encounter Date Encounter Type Care Provider Facility Start: 12-24-2024 End: 12-24-2024 Office outpatient visit 25 minutes Pedro MONROY Work Phone: [facility] Comment on above: Abdominal pain, RLQ (Primary Dx); Fever, unspecified fever cause; Chills; Myalgia Start: 08-21-2024 End: 08-21-2024 Emergency department patient visit No Primary Care Physician -Emergency Department Work Phone: Start: 07-08-2024 End: 07-08-2024 Emergency department patient visit Dr. Zana Blakely MD -Emergency Department Work Phone: Start: 05-24-2024 End: 05-24-2024 ambulatory [facility] Facility:[facility] Start: 05-24-2024 End: 05-24-2024 Office outpatient visit 15 minutes Gagandeep Ferreira APRN.PUBLIC RELATIONS ASSOCIATE Work Phone: [facility] Comment on above: TMJ dysfunction (Michelle johny Dx) Start: 03-08-2024 End: 03-08-2024 [facility] Facility[facility] Start: 03-08-2024 End: 03-08-2024 Office outpatient visit 25 minutes Gagandeep Ferreira INSPECTOR SCREEN PRINTING.PUBLIC RELATIONS ASSOCIATE Work Phone: [facility] Comment on above: Acute midline low ba ck pain without sciatica (Primary Dx); Rash Start: 02-23-2024 End: 02-23-2024 [facility] Start: 02-23-2024 End: 02-23-2024 Patient encounter procedure Whi Tech 1 [employer] W[employer] OB/Gynecology Start: 01-20-2024 End: 01-20-2024 ambulatory [facility] Facility:[facility] Start: 01-20-2024 End: 01-20-2024 Patient encounter procedure Luh Martinez MD Work Phone: OB/Gynecology Comment on above: Encounter for gyneco logical examination (general) (routine) without abnormal findings (Primary Dx); Screening for cervical cancer; Screen for STD (sexually transmitted disease); Need for prophylactic vaccination/inoculation against viral disease; Dysmenorrhea; Pelvic pain in female; Abnormal uterine bleeding (AUB) Start: 01-20-2024 End: 01-20-2024 Patient encounter status Luh Martinez MD Work Phone: [facility] Start: 11-12-2023 End: 11-12-2023 Emergency department patient visit No Primary Care Physician Facility:[facility] Start: 09-30-2023 End: 09-30-2023 Emergency department patient visit [facility] Work Phone: Start: 07-06-2023 End: 07-06-2023 ambulatory [facility]ARTINE[facility] Facility:[facility] Start: 07-06-2023 End: 07-06-2023 Patient encounter procedure Inga Escobar APRN.PUBLIC RELATIONS ASSOCIATE Work Phone: [facility] Comment on above: Exposure to SARS-ass ociated coronavirus (Primary Dx) Start: 06-29-2023 End: 06-29-2023 ambulatory [facility] Facility:[facility] Start: 06-29-2023 End: 06-29-2023 Patient encounter procedure Daniel Azul APRN.PUBLIC RELATIONS ASSOCIATE Work Phone: [facility] Comment on above: Sore throat (Primary Dx); Nausea Start: 04-26-2023 End: 04-26-2023 [facility] Work [facility]: Start: 10-27-2022 End: 10-27-2022 Patient encounter procedure Veto Pickens MD Work Phone: [facility] Comment on above: Sore throat (Primary Dx); Fatigue, unspecified type; Bilateral impacted cerumen Start: 06-16-2022 End: 06-17-2022 Emergency department patient visit [facility] Start: 06-15-2022 End: 06-15-2022 Emergency department patient visit [facility] Start: 04-25-2022 End: 04-25-2022 [facility] Start: 04-24-2022 Telephone encounter Gagandeep aguilar INSPECTOR SCREEN PRINTING.PUBLIC RELATIONS ASSOCIATE Work Phone: [facility] Comment on above: Results Start: 04-23-2022 End: 04-23-2022 Patient encounter procedure Anitra Barker APRN.PUBLIC RELATIONS ASSOCIATE Work Phone: [facility] Comment on above: Urinary frequency (P rimary Dx) Start: 12-10-2021 End: 12-10-2021 Emergency department patient visit No Primary Care Physician [facility] Start: 11-07-2021 ambulatory Zana Russo Work Phone: [facility] Comment on above: Eye twitching Start: 08-30-2021 End: 08-30-2021 Admission to same day surgery center [facility] Start: 08-30-2021 Non-patient / Non-visit No [facility] Physician [facility] Start: 08-22-2021 End: 08-22-2021 Patient encounter procedure Veto Pickens MD Work Phone: [facility] Comment on above: Bilateral impacted c erumen (Primary Dx) Start: 03-24-2019 Patient requested procedure Veto Pickens MD Work Phone: [facility] Work Phone: Procedures Date Procedure Procedure Detail Performing Clinician Start: 08-21-2024 Plain x-ray of elbow No Primary Care Physician Start: 03-08-2024 Urnls dip stick/tabl et rgnt auto w/o microscopy Gagandeep Ferreira APRN.PUBLIC RELATIONS ASSOCIATE Work Phone: Start: 02-23-2024 Us pelvic nonobstetr ic real-time image complete Luh Martinez MD Work Phone: Start: 06-29-2023 STREP A MOLECULAR (POC) [facility] Provider Start: 10-27-2022 STREP A MOLECULAR (POC) Veto Pickens MD Work Phone: Start: 06-16-2022 X-ray of soft tissue of neck Start: 04-23-2022 Urnls dip stick/tabl et rgnt auto w/o microscopy Daphney Andres PANandoC Work Phone: Start: 12-10-2021 Plain X-ray of [...] DTaP,Tdap,Td Vaccine (11 - Td or Tdap) [facility] Start: 08-21-2029 Urine microalbumin profile DTAP,TDAP,TD (9 - Td or Tdap) [facility] Start: 01-19-2027 Screening for malign ant neoplasm of cervix Cervical Cancer Screening [facility] Start: 01-30-2025 End: 01-30-2025 Patient encounter procedure 01/30/2025 11:00 AM EDT Office Visit OB/Gynecology [address] [place] [address] Luh Drew MD [address] [place] [id number] Annual OB/Gynecology Comment on above: Annual Start: 01-25-2025 End: 01-25-2025 Patient encounter procedure 01/25/2025 11:20 AM EDT Office Visit OB/Gynecology [address] [place] [address] Luh Drew MD [address] [place] [id number] Annual OB/Gynecology Comment on above: Annual Start: 01-23-2025 Influenza vaccination Influenza Vacc ine (#1) [facility] Start: 07-18-2024 9vhpv vacc 2/3 dose sched im use HPV VACCINE, 9-VALENT (GARDASIL 9) Immunization/Injection Routine Need for prophylactic vaccination/inoculation against viral disease Expected: 07/18/2024 (Approximate) [facility] Comment on above: Expected: 07/18/2024 (Approximate) Start: 07-18-2024 PAP TESTING PAP TESTING [facility] Start: 07-18-2024 Screening for malign ant neoplasm of cervix [facility] Start: 07-08-2024 [facility] Start: 03-20-2024 9vhpv vacc 2/3 dose sched im use HPV VACCINE, 9-VALENT (GARDASIL 9) Immunization/Injection Routine Need for prophylactic vaccination/inoculation against viral disease Expected: 03/20/2024 (Approximate) [facility] Comment on above: Expected: 03/20/2024 (Approximate) Start: 02-23-2024 End: 02-23-2024 Manual pelvic examination 02/23/2024 8:00 AM EDT Procedure OB/Gynecology [address] [place] [id number] Pelvic US OB/Gynecology Comment on above: Pelvic US Start: 01-24-2024 Covid-19 Vaccine ( season) Covid-19 Vaccine ( season) [facility] Start: 01-24-2024 Influenza vaccination Influenza Vacc ine (#1) [facility] Start: 01-20-2024 End: 01-19-2025 US Pelvis PELVIC US [facility] Routine Dysmenorrhea Pelvic pain in female Abnormal uterine bleeding (AUB) Expected: 01/20/2024, Expires: 01/19/2025 [facility] Comment on above: Expected: 01/20/2024 , Expires: 01/19/2025 Start: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
[2024-12-24] MEDS: 0.9% Normal Saline (1000mL) 1,000 ML 125 ML IV (16:36)
[2024-12-24] MEDS: Piperacil/Tazobactam 3.375 GM in 0.9% Normal Saline (50mL MB+) 50 ML IV (20:03)
[2024-12-25] VITALS (7 sets, daily range): BP systolic 99–106; BP diastolic 58–75; PULSE 70–100; RESP 14–18; TEMP 36.9–38.1; O2SAT 95–100
[2024-12-25] MEDS: 0.9% Normal Saline (1000mL) 1,000 ML 125 ML IV (00:39)
[2024-12-25 04:56] LABS: Hematocrit 31.2 % (37-47); Hemoglobin 10.5 g/dL (12.0-15.0); Immature Granulocytes Count 0.080 X10^3/uL (0.0-0.0); Mean Corp Hgb Conc 33.7 g/dL (32-36); Mean Corpuscular Volume 88.9 fL (81-99); Mean Platelet Vol. 9.5 fl (6.2-12.0); NRBC Flagged by Analyzer 0 % (0-5); POSITIVE DIFFERENTIAL YES; Platelet Count 210 K/mm3 (150-450); RBC Distribution Width CV 13.3 % (11.6-14.6); RBC Distribution Width SD 43.7 fl (35.1-43.9); Red Blood Count 3.51 M/mm3 (4.2-5.4); White Blood Count 12.2 K/mm3 (4.4-11.0)
[2024-12-25] MEDS: Piperacil/Tazobactam 3.375 GM in 0.9% Normal Saline (50mL MB+) 50 ML IV ×3 (05:06→20:43)
[2024-12-25 05:11] LABS: Anion Gap 9 (5-15); BUN 8 mg/dL (4-19); BUN/Creat Ratio 11.3 RATIO (10-20); Calcium,Total 7.6 mg/dL (7.6-11.0); Carbon Dioxide 21.4 mmol/L (21.0-32.0); Chloride 106 mmol/L (98-108); Estimated Creatinine Clearance 116.74 ml/min (50-250); Glucose 88 mg/dL (70-99); Potassium 4.1 mmol/L (3.3-5.1)
[2024-12-25 05:40] LABS: Differential Indicated SCAN CRITERIA MET
[2024-12-25 06:22] LABS: Differential Comment SCANNED
--- NOTE | 2024-12-25 10:23 | PN_ITS ---
Subjective Subjective Patient seen and examined. She feels better today and had no active complaints. Pain is much better. Review of systems is otherwise negative. Objective Data Objective Data Vital Signs: Vital Signs Temp Pulse Resp BP Pulse Ox O2 Del Method 98.8 F 100 18 106/75 98 Room Air 12/25/24 09:28 12/25/24 08:00 12/25/24 07:58 12/25/24 07:58 12/25/24 07:58 12/25/24 07:58 Oxygen Delivery Method Room Air Weight: 163 lb 9.328 oz Body Mass Index (BMI) 27.2 Intake & Output: Intake and Output for Last 24 Hours 12/23/24 12/24/24 12/25/24 23:59 23:59 23:59 Intake Total 2400 / 2400 2560 / 2560 Balance 2400 / 2400 2560 / 2560 Lab / Micro Data 12/25/24 03:30 12/25/24 03:30 Labs: Laboratory Results - last 24 hr 12/25/24 03:30: WBC 12.2 H, RBC 3.51 L, Hgb 10.5 L, Hct 31.2 L, MCV 88.9, MCH 29.9, MCHC 33.7, RDW Std Deviation 43.7, RDW Coeff of Jazmine 13.3, Plt Count 210, MPV 9.5, Immature Gran % (Auto) 0.700, Neut % (Auto) 66.8, Lymph % (Auto) 15.2 L , [place] % (Auto) 15.8 H, Eos % (Auto) 1.2, Baso % (Auto) 0.3, Absolute Neuts (auto) 8.2 H, Absolute Lymphs (auto) 1.85, Nucleated RBC % 0, Differential Comment SCANNED, Sodium 136, Potassium 4.1, Chloride 106, Carbon Dioxide 21.4, Anion Gap 9, BUN 8, Creatinine 0.73, Estim Creat Clear Calc 116.74, Est GFR (MDRD) Non-Af 116, BUN/Creatinine Ratio 11.3, Glucose 88, Calcium 7.6 Radiography Diagnostic Testing: Radiology Impression Abdomen/Pelvis CT 12/24/24 09:16 IMPRESSION: 1. Pyelonephritis and proximal ureteritis of the right kidney. No discrete abscess. 2. Hyperdensity within the proximal right ureter, which may be secondary to infection. No discrete nephrolithiasis. Reading Location: [facility] Physical Exam Const alert and oriented x3 General Appearance: cooperative HEENT normocephalic, head/scalp atraumatic, hearing grossly normal bilaterally and moist oral mucous membranes Eyes PERRL, EOMs intact bilaterally and conjunctivae normal Neck no lymphadenopathy, supple and no JVD Resp normal respiratory effort, normal air movement, no retractions, no use of accessory muscles and clear to auscultation bilaterally Cardio regular rate, regular rhythm, S1 normal heart sound, S2 normal heart sound and no murmurs GI normal to inspection, nondistended, normoactive bowel sounds, soft to palpation, non-tender and non-distended GI Narrative: no right CVA tenderness. Extremity normal to inspection, full ROM, normal capillary refill and no clubbing, cyanosis or edema General Extremity: no tenderness to palpation of joints or extremities Skin General Skin Exam: no breakdown Neuro oriented x3, CN's II-XII intact bilaterally, moves all extremities and no focal motor deficits Sensorium / Orientation: awake and alert Motor Exam: strength 5/5 throughout Psych thought process normal, cooperative and affect normal Appearance: appropriate Assessment & Plan Assessment/Plan (1) Pyelonephritis: (2) UTI (urinary tract infection): PLAN: Plan #Acute right sided pyelonephritis and proximal ureteritis of the right kidney * Feels much better today. * Urinalysis shows evidence of UTI with elevated leukocyte esterase and WBC as well as bacteria. * CT of the abdomen pelvis shows pyelonephritis and proximal ureteritis of the right kidney with no discrete abscess and hypodensity within the proximal right ureter which may be secondary to infection. There were no kidney stone seen. * On IV Zosyn. Get blood cultures and urine culture. Hydrate gently with IV fluids. P.o. Tylenol, p.o. oxycodone and IV morphine as needed for pain. * DVT prophylaxis: Low risk. Encourage ambulation Charges/Coding Visit Charges Inpatient E&M: 89087 Subs Hosp L2
[2024-12-25] MEDS: 0.9% Saline Lock 10 ML Syringe IV ×3 (11:31→20:42)
[2024-12-25] MEDS: 0.9% Normal Saline (250mL Bag) 250 ML 15 ML IV (13:36)
[2024-12-26] VITALS: RESP 16; TEMP 37.2
[2024-12-26] MEDS: Piperacil/Tazobactam 3.375 GM in 0.9% Normal Saline (50mL MB+) 50 ML IV ×2 (05:21→13:46)
[2024-12-26] MEDS: 0.9% Saline Lock 10 ML Syringe IV ×2 (05:22→09:21)
[2024-12-26 05:30] VITALS: BP 106/71; PULSE 79; RESP 16; TEMP 36.7; O2SAT 100
[2024-12-26 07:34] LABS: Hematocrit 32.9 % (37-47); Hemoglobin 11.0 g/dL (12.0-15.0); Immature Granulocytes Count 0.070 X10^3/uL (0.0-0.0); Mean Corp Hgb Conc 33.4 g/dL (32-36); Mean Corpuscular Volume 88.0 fL (81-99); Mean Platelet Vol. 9.2 fl (6.2-12.0); NRBC Flagged by Analyzer 0 % (0-5); Platelet Count 243 K/mm3 (150-450); RBC Distribution Width CV 13.0 % (11.6-14.6); RBC Distribution Width SD 42.0 fl (35.1-43.9); Red Blood Count 3.74 M/mm3 (4.2-5.4); White Blood Count 8.6 K/mm3 (4.4-11.0)
[2024-12-26 08:03] LABS: Anion Gap 11 (5-15); BUN 8 mg/dL (4-19); BUN/Creat Ratio 10.6 RATIO (10-20); Calcium,Total 8.5 mg/dL (7.6-11.0); Carbon Dioxide 23.4 mmol/L (21.0-32.0); Chloride 104 mmol/L (98-108); Estimated Creatinine Clearance 115.16 ml/min (50-250); Glucose 88 mg/dL (70-99); Potassium 4.2 mmol/L (3.3-5.1)
[2024-12-26 08:20] VITALS: BP 110/69; PULSE 87; RESP 16; TEMP 37.1; O2SAT 99
--- NOTE | 2024-12-26 09:26 | CASEMGMT ---
Dx: Right Pyelonephritis LACE: 2 6-Clicks: 24 Medical record reviewed and patient evaluated for identification of discharge planning needs. Based on this review, at this time criteria are not present to indicate a need for discharge planning. Will remain available to assist with discharge planning needs as identified or requested. Noted that ED SW has already provided the pt with PCP resources.
[2024-12-26 11:45] VITALS: BP 103/68; PULSE 85; RESP 16; TEMP 36.9; O2SAT 99
[2024-12-26 15:22] VITALS: BP 115/84; PULSE 61; RESP 16; TEMP 36.7; O2SAT 96
--- NOTE | 2024-12-26 16:06 | DCINST_ITS ---
Discharge Instructions DC O2, CPAP, BIPAP needs Home O2 Discharge instructions: No Dressing / Incision Discharge Activity: Return to Normal Activity Return to work on:: 12/29/24 Weight Bearing Status: Full weight bearing Follow Up Care Test Results: Test results from this visit will be discussed in further detail at your follow- up appointment, if applicable. Discharge Plan Admission Admit Date/Time: 12/24/24 13:23 Primary Reason for Your Visit: Right pyelonephritis Attending Provider: Yvan Petersen Primary Care Provider: Care Physician,Chetna Primary Consulting Providers: Asmita Michel Instructions Forms: Work / School Excuse Discharge Orders/Prescriptions Prescriptions: New oxycodone 5 mg Tablet 5 - 10 mg PO Q6H PRN (Reason: Pain Score 4-10) 4 Days Qty: 18 0RF Rx Instructions: May take with 650 mg Tylenol cefdinir 300 mg capsule 300 mg PO BID Qty: 15 0RF Rx Instructions: Start the evening of 12/26/2024 Continued epinephrine [EpiPen] 0.3 mg/0.3 mL auto-injector 0.3 mg IM Q4H PRN (Reason: anaphylaxis) Qty: 2 0RF Referrals / Follow Up: Care Physician,No Primary [Primary Care Provider] - Disposition Disposition (needs filled in before D/C Order can be placed): Home, Self Care
--- NOTE | 2024-12-26 16:17 | PCM.DC.SUM ---
Providers Date of Admission: 12/24/24 Date of Discharge: 12/26/24 Primary Care Physician: No Primary Care Phys Reason For Visit: RIGHT PYELONEPHRITIS, URETERITIS Diagnosis Discharge Diagnosis (1) Pyelonephritis: Status: Acute Code(s): N12 - Tubulo-interstitial nephritis, not specified as acute or chronic (2) UTI (urinary tract infection): Status: Acute Code(s): N39.0 - Urinary tract infection, site not specified Plan 1. Right pyelonephritis secondary to E. coli #2 right proximal ureteritis secondary to E. coli Medications at Discharge Home Medications epinephrine 0.3 mg/0.3 mL injection, auto-injector (EpiPen) 0.3 mg (0.3 mL) IM Q4H PRN anaphylaxis #2 ea 04/26/23 cefdinir 300 mg capsule 300 mg PO BID #15 caps 12/26/24 oxycodone 5 mg tablet 5 - 10 mg (1 - 2 x 5 mg) PO Q6H PRN Pain Score 4-10 4 days #18 tabs 12/26/24 Hospital Course Operations None Procedures None Summary of Care Provided Minutes Spent on Discharge: 30 Hospital Course: This 29-year-old white female was seen in the emergency room at [facility] with a chief complaint of right-sided abdominal pain x 4 days, she was sent in by an urgent care for evaluation due to concern of appendicitis. Workup in the emergency room included CT of the abdomen and pelvis which indicated pyelonephritis on the right with right ureteritis. Patient's white count was elevated. Patient was admitted to [place] [id number] and given IV antibiotics, urine culture grew out E. coli. On 12/26/2024, patient was seen and examined: On examination she appeared in good health and spirits, she does not appear to be in any distress. Vital signs as documented. Skin warm and dry and without overt rashes. Neck without JVD, thyroid appears normal, trachea is midline, neck is supple. Lungs clear, normal air movement was noted. Heart exam notable for regular rhythm, normal sounds and absence of murmurs, rubs or gallops. Abdomen unremarkable and without evidence of organomegaly, masses, or abdominal aortic enlargement, bowel sounds are present in all 4 quadrants, no abdominal tenderness was noted. Extremities nonedematous, no cyanosis was noted, no clubbing was noted. Neuro: Cranial nerves II through XII are grossly intact, no focal motor deficits were noted, sensation to light touch and pinprick is intact, motor exam 5/5 throughout. Psych: Patient is alert and oriented x3, she does not appear anxious or depressed, she does not appear agitated. Patient was stable for discharge home on 12/26/2024 in good condition. Weight / BMI Weight Weight: 74.2 kg Body Mass Index (BMI) 27.2 ABG / Lab / Microbiology Data 12/26/24 07:11 12/26/24 07:11 Laboratory: Laboratory Results - last 24 hr 12/26/24 07:11: WBC 8.6, RBC 3.74 L, Hgb 11.0 L, Hct 32.9 L, MCV 88.0, MCH 29.4, MCHC 33.4, RDW Std Deviation 42.0, RDW Coeff of Jazmine 13.0, Plt Count 243, MPV 9.2, Immature Gran % (Auto) 0.800, Neut % (Auto) 71.5 H, Lymph % (Auto) 14.4 L, [place] % (Auto) 9.9, Eos % (Auto) 2.7, Baso % (Auto) 0.7, Absolute Neuts (auto) 6.1, Absolute Lymphs (auto) 1.23, Nucleated RBC % 0, Sodium 138, Potassium 4.2, Chloride 104, Carbon Dioxide 23.4, Anion Gap 11, BUN 8, Creatinine 0.74, Estim Creat Clear Calc 115.16, Est GFR (MDRD) Non-Af 114, BUN/Creatinine Ratio 10.6, Glucose 88, Calcium 8.5 Microbiology: Microbiology 12/24/24 15:50 Blood Culture (Wb) #2 - Left Hand Blood Culture - Final No growth in 5 days. 12/24/24 15:40 Blood Culture (Wb) - Anticubital Left Blood Culture - Final No growth in 5 days. 12/24/24 09:15 Urine, Clean Catch Urine Culture - Final Escherichia coli D/C Instructions Return to work on: 12/29/24 Weight Bearing Status: Full weight bearing DC O2, CPAP, BIPAP Needs Home O2 Discharge instructions: No Meaningful Use Info Meaningful Use Meaningful Use Diagnoses (Choose all that apply): None applicable Discharge Plan Admission Admit Date/Time: 12/24/24 13:23 Primary Reason for Your Visit: Right pyelonephritis Attending Provider: Yvan Petersen Primary Care Provider: Care Physician,No Primary Consulting Providers: Asmita Michel Instructions Forms: Work / School Excuse Discharge Orders/Prescriptions Prescriptions: New oxycodone 5 mg Tablet 5 - 10 mg PO Q6H PRN (Reason: Pain Score 4-10) 4 Days Qty: 18 0RF Rx Instructions: May take with 650 mg Tylenol cefdinir 300 mg capsule 300 mg PO BID Qty: 15 0RF Rx Instructions: Start the evening of 12/26/2024 Continued epinephrine [EpiPen] 0.3 mg/0.3 mL auto-injector 0.3 mg IM Q4H PRN (Reason: anaphylaxis) Qty: 2 0RF Referrals / Follow Up: Care Physician,No Primary [Primary Care Provider] - Disposition Disposition (needs filled in before D/C Order can be placed): Home, Self Care Charges/Coding Visit Charges Inpatient E&M: 62878 Disch Hosp
== END 2024-12-26 16:28 | disposition home or self-care (01) ==
LOC: ED 13:15 → MS3 12-26 07:16
PROVIDERS: Admitting Provider Student in an Organized Health Care Education/Training Program; Emergency Provider Emergency Medicine; Visit Provider Internal Medicine
DX: N10 Acute pyelonephritis (principal); B96.20 Unspecified Escherichia coli [E. coli] as the cause of diseases classified elsewhere; F17.290 Nicotine dependence, other tobacco product, uncomplicated; N28.89 Other specified disorders of kidney and ureter
CPT/HCPCS: 36415; 74177; 80048; 80053; 81001; 83690; 84703; 85025; 87040; 87077; 87086; 87088; 87186; 96361; 96365; 96366; 96367; 96372; 96375; 96376; 99221; 99285; Q9967; A4216; G0378; J0696; J2405

== ENCOUNTER 2025-05-11 11:05 | Emergency (ER) | payer MEDICAID, SELFPAY ==
[2025-05-11 11:05] VITALS: BP 139/90; PULSE 87; RESP 14; TEMP 36.1; O2SAT 98
--- NOTE | 2025-05-11 11:41 | CT_ITS ---
PROCEDURE: ABDOMEN/PELVIS W IV CONT ONLY 05/11/2025 REASON FOR EXAM: LOWER ABDOMINAL PAIN TECHNIQUE: Procedure Code: [id number] Modality: CT Procedure: ABDOMEN/PELVIS W IV CONT ONLY Coronal and Sagittal reconstruction series were provided. CONTRAST: Isovue 370 VOLUME: 100 mL One or more dose reduction techniques were used (e.g., Automated exposure control, adjustment of the mA and/or kV according to patient size, use of iterative reconstruction technique. RADIATION DOSE SUMMARY: CTDlvol: 13.99 mGy DLP: 758.27 mGycm COMPARISON: 12/24/2024 FINDINGS: Lung bases: Unremarkable Liver: Within normal limits Gallbladder: Normal Spleen: Unremarkable Pancreas: Normal Adrenals: Normal Kidneys: Unremarkable. No hydronephrosis. Symmetric enhancement. Bladder: Normal Reproductive Organs: Stable mildly enlarged, heterogeneous attenuating uterus. Follicular changes in left adnexa. Tiny amount of free fluid in the pelvis. Bowel: Unremarkable. Appendix: Normal Lymph nodes: Scattered mid mesenteric lymph nodes are mildly prominent but not enlarged by size criteria. No enlarged pelvic lymph nodes. Vasculature: Normal Peritoneum / Retroperitoneum: No peritoneal mass Bones: Unremarkable CT/Abdomen/Pelvis W IV Cont ONLY IMPRESSION: 1. Stable mildly enlarged, heterogeneous attenuating uterus, which may relate t o physiologic changes. Tiny amount of free fluid in the pelvis. 2. Stable mildly prominent mid mesenteric lymph nodes, nonspecific and possibly reactive. Reading Location: [id number]
--- NOTE | 2025-05-11 11:44 | EDS_ITS ---
HPI History of Present Illness Chief Complaint: Abd Pain Narrative Narrative: Chief complaint and HPI: 30-year-old female who is G3, P3 presents for evaluation of suprapubic abdominal pain. Patient states for the past week she has been having suprapubic abdominal pain that radiates to the low back. She states for the past 2 months she has had some nausea. Her last menstrual cycle was 03/26/2025. States that was in early. For her she is usually regular. She states she was under a lot of stress. She is currently not started her period this month. She has a history of bilateral tubal removal. She denies any fever, chills, URI symptoms, diarrhea, constipation, dysuria, vaginal discharge. No history of urolithiasis. States states she has an appointment with her DOG FOOD SHREDDER OPERATOR later this month. Review of systems: See HPI Medications: As listed on the chart Allergies: As listed on the chart PFSH: Per chart Vital signs: As listed on the chart. Reviewed. Physical exam: Gen: A&O x3, NAD Head: Normocephalic, atraumatic Eyes: No sclera icterus, conjunctiva clear ENT: Moist mucous membranes CV: RRR, no murmurs, no peripheral edema Resp: Lungs CTA BL, no w/r/c GI: Abd soft, non-distended, minimal tenderness suprapubically, no r/r/g : No CVA tenderness Musc: Full ROM Skin: Warm, dry Psych: Cooperative, appropriate mood and affect PFSH PFSH Medical History Anxiety Smoker Migraines Pyelonephritis UTI (urinary tract infection) Wears glasses Smoker Home Medications ?Medication ?Instructions ?Recorded ?Last Taken ?Type NK 05/11/25 Unknown History Allergy/AdvReac Type Severity Reaction Status Date / Time No Known Allergies Allergy Verified 05/11/25 11:06 Family History Grandfather Cancer Grandmother Cancer Surgical History History of D&C Social History (Updated 05/11/25 @ 12:09 by Kathia Laguerre) household members: children and friend(s) housing: house number of children: 3 Smoking Status: Current every day smoker tobacco type: e-cigarettes EXAM Physical Exam Const Vital Signs: 05/11/25 11:05 05/11/25 13:14 Temperature 96.9 F L Temperature Source Temporal Pulse Rate 87 78 Respiratory Rate 14 16 Blood Pressure 139/90 H 131/83 H Blood Pressure Mean 106 99 Pulse Ox 98 100 Oxygen Delivery Method Room Air Room Air MDM MDM MDM Narrative Medical decision making narrative: 30-year-old female who is G3, P3 presents for evaluation of suprapubic abdominal pain. Patient states for the past week she has been having suprapubic abdominal pain that radiates to the low back. She states for the past 2 months she has had some nausea. Her last menstrual cycle was 03/26/2025. States that was in early. For her she is usually regular. She states she was under a lot of stress. She is currently not started her period this month. She has a history of bilateral tubal removal. Differential diagnosis includes but is not limited to UTI, urolithiasis, colitis, other intra-abdominal pathology. NS bolus, Zofran, morphine ordered. Laboratory workup ordered including UA. CBC unremarkable without leukocytosis or anemia. CMP unremarkable. Lipase unremarkable. UA negative for UTI. Urine negative. CT abdomen pelvis shows stable mildly enlarged, heterogeneous attenuating uterus, may relate to physiological changes. Tiny Tony free fluid in the pelvis. Stable mildly prominent mid metastatic lymph nodes. Nonspecific and possibly reactive. At this point in time, no clear etiology to explain patient's symptoms. Recommend keeping her appointment with her DOG FOOD SHREDDER OPERATOR. Recommend her following up with her primary care physician. She confirmed understanding of plan. Return precautions explained. Impression: 1. Suprapubic abdominal pain Lab Data Labs: Laboratory Results - last 24 hr 05/11/25 05/11/25 11:56 Unknown WBC 7.3 RBC 4.48 Hgb 13.0 Hct 39.2 MCV 87.5 MCH 29.0 MCHC 33.2 RDW Std Deviation 42.0 RDW Coeff of Jazmine 13.2 Plt Count 320 MPV 9.3 Immature Gran % (Auto) 0.400 Neut % (Auto) 56.3 Lymph % (Auto) 32.2 [place] % (Auto) 7.0 Eos % (Auto) 3.3 Baso % (Auto) 0.8 Absolute Neuts (auto) 4.1 Absolute Lymphs (auto) 2.34 Nucleated RBC % 0 Sodium 142 Potassium 4.1 Chloride 107 Carbon Dioxide 23.5 Anion Gap 12 BUN 10 Creatinine 0.75 Est GFR (MDRD) Non-Af 112 BUN/Creatinine Ratio 12.9 Glucose 89 Calcium 8.6 Total Bilirubin 0.23 AST 15 ALT 14 Alkaline Phosphatase 64 Total Protein 6.9 Albumin 4.2 Globulin 2.7 Albumin/Globulin Ratio 1.6 Lipase 24 Urine Color Yellow Urine Clarity Clear Urine pH 6.5 Ur Specific [place] 1.010 Urine Protein Negative Urine Glucose (UA) Normal Urine Ketones Negative Urine Occult Blood Negative Urine Nitrite Negative Urine Bilirubin Negative Urine Urobilinogen Normal Ur Leukocyte Esterase 25 H Urine RBC 0 SEEN Urine WBC 0-5 SEEN Ur Squamous Epith Cells 0-5 SEEN Urine Bacteria RARE Urine Mucus 0 SEEN Urine Test Negative Radiography Diagnostic Testing: Clinical Impression(s) from Imaging Studies Abdomen/Pelvis CT 05/11/25 11:41 IMPRESSION: 1. Stable mildly enlarged, heterogeneous attenuating uterus, which may relate to physiologic changes. Tiny amount of free fluid in the pelvis. 2. Stable mildly prominent mid mesenteric lymph nodes, nonspecific and possibly reactive. Reading Location: [id number] Discharge Plan Triage Chief Complaint: Abd Pain ED Provider: Inocencio Dodd Dx/Rx/DC Orders Prescriptions: No Action NK Primary Care Provider: Care Physician,No Primary Referrals: Care Physician,No Primary [Primary Care Provider, Medical] Print Language: Hong Kong[place]
[2025-05-11 11:54] LABS: Mucous, Urine 0 SEEN /hpf (<or=2+); Red Blood Cells-Urine 0 SEEN /hpf (0-5)
[2025-05-11] MEDS: 0.9% Normal Saline (1000mL) 1,000 ML 999 ML IV (11:54)
[2025-05-11 12:03] LABS: Hematocrit 39.2 % (37-47); Hemoglobin 13.0 g/dL (12.0-15.0); Immature Granulocytes Count 0.030 X10^3/uL (0.0-0.0); Mean Corp Hgb Conc 33.2 g/dL (32-36); Mean Corpuscular Volume 87.5 fL (81-99); Mean Platelet Vol. 9.3 fl (6.2-12.0); NRBC Flagged by Analyzer 0 % (0-5); Platelet Count 320 K/mm3 (150-450); RBC Distribution Width CV 13.2 % (11.6-14.6); RBC Distribution Width SD 42.0 fl (35.1-43.9); Red Blood Count 4.48 M/mm3 (4.2-5.4); White Blood Count 7.3 K/mm3 (4.4-11.0)
[2025-05-11 12:07] LABS: Color, Urine Yellow (Yellow); Glucose, Dipstick Normal (Normal); Ketone-Dipstick Negative (Negative); Leukocyte Esterase-Dipstick 25 /ul (Negative); Nitrite-Dipstick Negative (Negative); Occult Blood-Urine Negative /ul (Negative); Protein-Dipstick Negative (Negative); Specific Gravity, Urine 1.010 (1.002-1.030); Urine Bilirubin Dipstick Negative (Negative)
[2025-05-11 12:16] LABS: Squamous Epithelial Cells - UA 0-5 SEEN /hpf (5-10)
[2025-05-11 12:20] LABS: Internal QC Validated? YES +Cl - CLEAR BKGD; Pregnancy, Urine Negative Negative
[2025-05-11 12:35] LABS: AST(SGOT) 15 U/L (<=31); Alanine Aminotransfer ALT/SGPT 14 U/L (<=34); Albumin, Serum 4.2 g/dL (3.5-5.0); Alkaline Phosphatase 64 U/L (35-104); Anion Gap 12 (5-15); BUN 10 mg/dL (4-19); BUN/Creat Ratio 12.9 RATIO (10-20); Calcium,Total 8.6 mg/dL (7.6-11.0); Carbon Dioxide 23.5 mmol/L (21.0-32.0); Chloride 107 mmol/L (98-108); Globulin 2.7 g/dL (2.2-4.2); Glucose 89 mg/dL (70-99); Lipase 24 U/L (13-75); Potassium 4.1 mmol/L (3.3-5.1)
[2025-05-11 13:14] VITALS: BP 131/83; PULSE 78; RESP 16; O2SAT 100
[2025-05-11 14:19] VITALS: BP 131/83; PULSE 78; RESP 16; TEMP 36.6; O2SAT 100
== END 2025-05-11 14:26 | disposition home or self-care (01) ==
PROVIDERS: Emergency Provider Surgery; Visit Provider Surgery
DX: R10.24 Suprapubic pain (principal); Z87.440 Personal history of urinary (tract) infections; F17.290 Nicotine dependence, other tobacco product, uncomplicated; Z98.51 Tubal ligation status; R11.0 Nausea
CPT/HCPCS: 74177; 80053; 81001; 81025; 83690; 85025; 96361; 96374; 96375; 99283; Q9967; A4216; J2405